=== PATIENT | female | born 1985 | race Caucasian/White ===

== ENCOUNTER 2016-06-15 16:47 | Emergency (ER) | payer MEDICAID, OTHER ==
[~2016-06-15 16:47] MED LIST: /DIVA50TA PO; ACET50TA PO; AFRI0.056; CLAR10CA3 PO; FLON0.054; IBUP200C PO; IBUP200T45 PO; MINI2CAP PO; MOBI7.5T10 PO; MOTR200T44 PO; OLOP1OPD OU; PERC5TAB6 PO; PRENTAB26 PO; RISP0.5T3 PO; RISP1SS PO; ROBA750T4 PO; TRAZ100T4 PO; TRIL150T PO; TRIL1TAB PO; TUMS500C PO; VENL37TA FT; XANA1TAB2 PO; ZYRT10CA PO
[2016-06-15] MEDS ORDERED: FLUORESCEIN OPHTH 1 MG STRIP As Ordered ONE (17:44)
[2016-06-15] MEDS ORDERED: IRRIGATION OPHTH SOLN (EYE WASH) 120ML As Ordered ONE (17:44)
[2016-06-15] MEDS ORDERED: TETRACAINE 0.5% OPHTH SOLN 4ML As Ordered ONE (17:44)
--- NOTE | 2016-06-15 18:32 | EDDOCDS ---
Nurse's Notes [facility] Name: Rosie Barajas Age: 30 yrs Sex: Female : 1985 Arrival Date: 06/15/2016 Time: 16:47 Bed I10 / 23 Private MD: [facility] - Adults Diagnosis: Ocular pain, right eye-chemical exposure with cooking grease, no uptake on exam, inconsisent left IOP unspecified Presentation: 06/15 16:52 Presenting complaint: Patient states: Hot grease splashed in right eye last night at [employer]1 work, states pain persist today sent here from work. Mechanism of Injury: grease from fryer splashed into right eye. The patient denies any loss of vision. Adult Sepsis Screening: The patient does not have new or worsening altered mentation. Patient's respiratory rate is less than 22. Systolic blood pressure is greater than 100. Patient has a qSOFA score of 0- Negative Sepsis Screen. Suicide/Homicide risk assessment- the patient denies having any suicidal and/or homicidal ideations and does not present with any other emotional, behavioral or mental health complaints. 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 Transition of care: patient was not received from another setting of care. 16:52 Acuity: MAICO Level 4 mlb1 16:52 Method Of Arrival: Walkin/Carried/Asstd mlb1 Triage Assessment: 16:54 General: Appears in no apparent distress, Behavior is appropriate for age, cooperative. mlb1 Pain: Location: right eye Pain currently is 6 out of 10 on a pain scale. HIV screening NA for this visit Offered previously. 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 none - PMHx: Bipolar disorder; Seasonal Allergies; - PSHx: Adenoidectomy; Appendectomy; Tonsillectomy; Tubal ligation; - Social history: Smoking status: Patient uses tobacco products, light tobacco smoker. No barriers to communication noted, The patient speaks fluent Palauan, Speaks appropriately for age. - Family history: Not pertinent. - : The pt / caregiver states he / she is not on anticoagulants. Home medication list is obtained from the patient. - Exposure Risk Screening:: None identified. Screenin:52 Screening information is obtained from the patient. Fall risk: No risks identified. dls Assistance ADL's: requires no assistance with activities of daily living. Abuse/DV Screen: The patient / caregiver reports he/she is: not in a situation that causes fear, pain or injury. Nutritional screening: No deficits noted. Advance Directives: Currently, there is no health care proxy. There is no active DNR order. There is no living will. There is no Power of Applied Researcher. Advance directive information has not previously been placed in an [facility] medical record. home support is adequate. Assessment: 17:51 General: Appears in no apparent distress, Behavior is cooperative. EENT: Reports dls Usually wears glasses for reading and distance but lost them in a move one week ago. Pt also states hx of glaucoma.. 18:22 EENT: Eyes Sclera/Cornea are clear in right eye. dls Vital Signs: 16:49 BP 133 / 72; Pulse 86; Resp 18; Temp 99.2; Pulse Ox 100% ; Weight 56.7 kg; Height 5 ft. elp 0 in. (152.40 cm); 18:30 BP 128 / 70; Pulse 82; Resp 18; Temp 97.4(O); Pain 0/10; dls 16:49 Body Mass Index 24.41 (56.70 kg, 152.40 cm) elp Vitals: 16:49 Log In Time: June 15, 2016 at 16:46. elp Visual Acuity: 17:50 Left Eye Visual acuity 20/60, ; Right Eye Visual acuity 20/100, ; Both Eyes Visual dls acuity 20/60; Without Lenses; ED Course: 16:48 Patient visited by Roxann Chatterjee PCA. elp 16:48 [facility] is Private Physician. elp 16:48 Patient moved to Waiting elp 16:49 Patient visited by Roxann Chatterjee PCA. elp 16:49 Patient moved to Pre RCE elp 16:53 Triage Initiated mlb1 16:55 Patient visited by Montez Nicholas RN. mlb1 17:28 Patient moved to Triage 1 jp4 17:34 Patient visited by Nay Gomez RN. ck1 17:36 [facility] Meraz [facility] is [facility]. ar2 17:36 Yunior Waite MD is Attending Physician. ar2 17:36 Patient visited by Loco Meraz PA-C. ar2 17:38 Patient moved to I1 ck1 17:52 The patient / caregiver is instructed regarding the plan of care and ED course. Patient dls has correct armband on for positive identification. Bed in low position. Call light in reach. 18:08 [facility] Payment Agreement was scanned into [employer] and attached to record. zo 18:11 PHCP role handed off by Loco Meraz PA-C ck7 18:11 Yasmani Gutierrez RPA-C is PHCP. ck7 18:11 Patient visited by Yasmani Gutierrez RPA-C. ck7 18:14 PHCP role handed off by Yasmani Gutierrez RPA-C ck7 18:14 Loco Meraz PA-C is PHCP. ck7 18:17 Dilan Mckinney is Referral Physician. ar2 18:22 No IV's were initiated during this patient's visit. No procedures done that require dls assistance. Administered Medications: 17:49 Drug: Fluorescein 1 strips [fluorescein 1 mg eye strips (1 strips)] Route: Ophthalmic; dls Site: right eye; 17:49 Drug: Tetracaine (PF) 2 drps [tetracaine HCl (PF) 0.5 % eye drops (2 drps)] Route: dls Ophthalmic; Site: right eye; 17:50 Drug: Eye Wash Drops 1 applic Route: Ophthalmic; Site: right eye; dls Order Results: There are currently no results for this order. Outcome: 18:21 Discharge Assessment: Patient awake, alert and oriented x 3. No cognitive and/or dls functional deficits noted. Patient verbalized understanding of disposition instructions. patient administered narcotics - no. The following High Risk Discharge criteria are identified: None. Discharged to home ambulatory. Condition: stable. Discharge instructions given to patient, Instructed on discharge instructions, follow up and referral plans. Demonstrated understanding of instructions, Pt was receptive of discharge instructions/ teaching. No special radiology studies were completed. Property sent home with patient. 18:22 Discharge ordered by Provider. ar2 18:30 Patient left the ED. dls Signatures: Sharyn Gibson RN RN dls Montez Nicholas RN RN mlb1 Nay Gomez RN RN ck1 Chad, ZoeaLoco Stock, LINO PA-C ar2 Yasmani Gutierrez, RPA-C RPA-Cck7 Roxann Chatterjee, TAD PATTERN SHOP SUPERVISOR elp Tyler Asif jp4 MTDD
--- NOTE | 2016-06-15 18:32 | EDDOCDS ---
Physician Documentation [facility] Name: Rosie Barajas Age: 30 yrs Sex: Female : 1985 Arrival Date: 06/15/2016 Time: 16:47 Bed I10 23 Private MD: [facility] [place] - Adults Disposition: 06/15/16 18:22 Discharged to Home/Self Care. Impression: Ocular pain, right eye - chemical exposure with cooking grease, no uptake on exam, inconsisent left IOP unspecified. - Condition is Stable. - Discharge Instructions: Conjunctivitis, Chemical, Glaucoma. - Prescriptions for Erythromycin 5 mg/gram (0.5 %) Ophthalmic Ointment - apply 1 ribbon by OPHTHALMIC route every 8 hours for 5 days; 1 tube. - Medication Reconciliation, Work Release Form - 1 day, Local Pharmacy Hours form. - Follow up: Dilan Mckinney; When: Call to arrange an appointment; Reason: Recheck today's complaints. Follow up: Emergency Department; When: As needed; Reason: severe eye pain, vision loss. - Problem is new. - Symptoms are unchanged. - Notes: call Dr. Mckinney's office Friday for a follow up appointment. return to ER if worsening condition Historical: - Allergies: Latex; - Home Meds: 1. none - PMHx: Bipolar disorder; Seasonal Allergies; - PSHx: Adenoidectomy; Appendectomy; Tonsillectomy; Tubal ligation; - Social history: Smoking status: Patient uses tobacco products, light tobacco smoker. No barriers to communication noted, The patient speaks fluent Salvadorean, Speaks appropriately for age. - Family history: Not pertinent. - : The pt / caregiver states he / she is not on anticoagulants. Home medication list is obtained from the patient. - Exposure Risk Screening:: None identified. CAN CARRIER: 06/15 16:55 LMP 05/31/2016 mlb1 Vital Signs: 16:49 BP 133 / 72; Pulse 86; Resp 18; Temp 99.2; Pulse Ox 100% ; Weight 56.7 kg / 125 lbs; elp Height 5 ft. 0 in. (152.40 cm); 18:30 BP 128 / 70; Pulse 82; Resp 18; Temp 97.4(O); Pain 0/10; dls 16:49 Body Mass Index 24.41 (56.70 kg, 152.40 cm) elp Visual Acuity: 17:50 Left Eye Visual acuity 20/60, ; Right Eye Visual acuity 20/100, ; Both Eyes Visual dls acuity 20/60; Without Lenses; MDM: 17:37 Visual Acuity ordered. ar2 17:37 Eye Wash Drops 1 applic Ophthalmic bolus ordered. ar2 17:37 Fluorescein Strip 1 strips Ophthalmic once ordered. ar2 17:37 Tetracaine (PF) Drops 0.5 % 2 drps Ophthalmic once ordered. ar2 18:04 Financial registration complete. zo 18:08 [facility] Payment Agreement was scanned into [employer] and attached to record. zo Administered Medications: 17:49 Drug: Fluorescein 1 strips [fluorescein 1 mg eye strips (1 strips)] Route: Ophthalmic; dls Site: right eye; 17:49 Drug: Tetracaine (PF) 2 drps [tetracaine HCl (PF) 0.5 % eye drops (2 drps)] Route: dls Ophthalmic; Site: right eye; 17:50 Drug: Eye Wash Drops 1 applic Route: Ophthalmic; Site: right eye; dls Signatures: Sharyn Gibson RN RN dls Montez Nicholas RN RN mlb1 Maru Bonilla Aaron, PA-C PAMelania ar2 The chart was reviewed and I authenticate all verbal orders and agree with the evaluation and treatment provided.Attachments: 18:08 [facility] Payment Agreement zo MTDD
--- NOTE | 2016-06-17 19:32 | EDDOCDS ---
Nurse's Notes [facility] Name: Rosie Barajas Age: 30 yrs Sex: Female : 1985 Arrival Date: 06/15/2016 Time: 16:47 Bed I10 / 23 Private MD: [facility] - Adults Diagnosis: Ocular pain, right eye-chemical exposure with cooking grease, no uptake on exam, inconsisent left IOP unspecified Presentation: 06/15 16:52 Presenting complaint: Patient states: Hot grease splashed in right eye last night at [employer] work, states pain persist today sent here from work. Mechanism of Injury: grease from fryer splashed into right eye. The patient denies any loss of vision. Adult Sepsis Screening: The patient does not have new or worsening altered mentation. Patient's respiratory rate is less than 22. Systolic blood pressure is greater than 100. Patient has a qSOFA score of 0- Negative Sepsis Screen. Suicide/Homicide risk assessment- the patient denies having any suicidal and/or homicidal ideations and does not present with any other emotional, behavioral or mental health complaints. Status: Patient is not a line service technician or dependent. Transition of care: patient was not received from another setting of care. 16:52 Acuity: MAICO Level 4 mlb1 16:52 Method Of Arrival: Walkin/Carried/Asstd mlb1 Triage Assessment: 16:54 General: Appears in no apparent distress, Behavior is appropriate for age, cooperative. mlb1 Pain: Location: right eye Pain currently is 6 out of 10 on a pain scale. HIV screening NA for this visit Offered previously. 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 none - PMHx: Bipolar disorder; Seasonal Allergies; - PSHx: Adenoidectomy; Appendectomy; Tonsillectomy; Tubal ligation; - Social history: Smoking status: Patient uses tobacco products, light tobacco smoker. No barriers to communication noted, The patient speaks fluent Norwegian, Speaks appropriately for age. - Family history: Not pertinent. - : The pt / caregiver states he / she is not on anticoagulants. Home medication list is obtained from the patient. - Exposure Risk Screening:: None identified. Screenin:52 Screening information is obtained from the patient. Fall risk: No risks identified. dls Assistance ADL's: requires no assistance with activities of daily living. Abuse/DV Screen: The patient / caregiver reports he/she is: not in a situation that causes fear, pain or injury. Nutritional screening: No deficits noted. Advance Directives: Currently, there is no health care proxy. There is no active DNR order. There is no living will. There is no Power of Head Resident. Advance directive information has not previously been placed in an [facility] medical record. home support is adequate. Assessment: 17:51 General: Appears in no apparent distress, Behavior is cooperative. EENT: Reports dls Usually wears glasses for reading and distance but lost them in a move one week ago. Pt also states hx of glaucoma.. 18:22 EENT: Eyes Sclera/Cornea are clear in right eye. dls Vital Signs: 16:49 BP 133 / 72; Pulse 86; Resp 18; Temp 99.2; Pulse Ox 100% ; Weight 56.7 kg; Height 5 ft. elp 0 in. (152.40 cm); 18:30 BP 128 / 70; Pulse 82; Resp 18; Temp 97.4(O); Pain 0/10; dls 16:49 Body Mass Index 24.41 (56.70 kg, 152.40 cm) elp Vitals: 16:49 Log In Time: June 15, 2016 at 16:46. elp Visual Acuity: 17:50 Left Eye Visual acuity 20/60, ; Right Eye Visual acuity 20/100, ; Both Eyes Visual dls acuity 20/60; Without Lenses; ED Course: 16:48 Patient visited by Roxann Chatterjee PCA. elp 16:48 [facility] is Private Physician. elp 16:48 Patient moved to Waiting elp 16:49 Patient visited by Roxann Chatterjee PCA. elp 16:49 Patient moved to Pre RCE elp 16:53 Triage Initiated mlb1 16:55 Patient visited by Montez Nicholas RN. mlb1 17:28 Patient moved to Triage 1 jp4 17:34 Patient visited by Nay Gomez RN. ck1 17:36 [facility] ar2 17:36 Yunior Waite MD is Attending Physician. ar2 17:36 Patient visited by Loco Meraz PA-C. ar2 17:38 Patient moved to I10 23 ck1 17:52 The patient / caregiver is instructed regarding the plan of care and ED course. Patient dls has correct armband on for positive identification. Bed in low position. Call light in reach. 18:08 [facility] Payment Agreement was scanned into [employer] and attached to record. zo 18:11 PHCP role handed off by Loco Meraz PA-C ck7 18:11 Yasmani Gutierrez RPA-C is PHCP. ck7 18:11 Patient visited by Yasmani Gutierrez RPA-C. ck7 18:14 PHCP role handed off by Yasmani Gutierrez RPA-C ck7 18:14 Loco Meraz PA-C is PHCP. ck7 18:17 Dilan Mckinney is Referral Physician. ar2 18:22 No IV's were initiated during this patient's visit. No procedures done that require dls assistance. 22:00 T-Sheet-- Draft Copy was scanned into [employer] and attached to record. klr Administered Medications: 17:49 Drug: Fluorescein 1 strips [fluorescein 1 mg eye strips (1 strips)] Route: Ophthalmic; dls Site: right eye; 17:49 Drug: Tetracaine (PF) 2 drps [tetracaine HCl (PF) 0.5 % eye drops (2 drps)] Route: dls Ophthalmic; Site: right eye; 17:50 Drug: Eye Wash Drops 1 applic Route: Ophthalmic; Site: right eye; dls Order Results: There are currently no results for this order. Outcome: 18:21 Discharge Assessment: Patient awake, alert and oriented x 3. No cognitive and/or dls functional deficits noted. Patient verbalized understanding of disposition instructions. patient administered narcotics - no. The following High Risk Discharge criteria are identified: None. Discharged to home ambulatory. Condition: stable. Discharge instructions given to patient, Instructed on discharge instructions, follow up and referral plans. Demonstrated understanding of instructions, Pt was receptive of discharge instructions/ teaching. No special radiology studies were completed. Property sent home with patient. 18:22 Discharge ordered by Provider. ar2 18:30 Patient left the ED. dls Signatures: Sharyn Gibson RN RN dls Montez Nicholas RN RN mlb1 Nay Gomez,RN RN ck1 Maru Bonilla Aaron, PA-C PA-C ar2 Yasmani Gutierrez, RPA-C RPA-Cck7 Roxann Chatterjee, TAD RADIAL DRILL PRESS OPERATOR marcellp Yefri, Tyler jp4 Verito Quinones Chart Complete MTDD
--- NOTE | 2016-06-17 19:32 | EDDOCDS ---
Physician Documentation [facility] Name: Rosie Barajas Age: 30 yrs Sex: Female : 1985 Arrival Date: 06/15/2016 Time: 16:47 Bed I10 23 Private MD: [facility] [place] - Adults Disposition: 06/15/16 18:22 Discharged to Home/Self Care. Impression: Ocular pain, right eye - chemical exposure with cooking grease, no uptake on exam, inconsisent left IOP unspecified. - Condition is Stable. - Discharge Instructions: Conjunctivitis, Chemical, Glaucoma. - Prescriptions for Erythromycin 5 mg/gram (0.5 %) Ophthalmic Ointment - apply 1 ribbon by OPHTHALMIC route every 8 hours for 5 days; 1 tube. - Medication Reconciliation, Work Release Form - 1 day, Local Pharmacy Hours form. - Follow up: Dilan Mckinney; When: Call to arrange an appointment; Reason: Recheck today's complaints. Follow up: Emergency Department; When: As needed; Reason: severe eye pain, vision loss. - Problem is new. - Symptoms are unchanged. - Notes: call Dr. Mckinney's office Friday for a follow up appointment. return to ER if worsening condition Historical: - Allergies: Latex; - Home Meds: 1. none - PMHx: Bipolar disorder; Seasonal Allergies; - PSHx: Adenoidectomy; Appendectomy; Tonsillectomy; Tubal ligation; - Social history: Smoking status: Patient uses tobacco products, light tobacco smoker. No barriers to communication noted, The patient speaks fluent Luxembourger, Speaks appropriately for age. - Family history: Not pertinent. - : The pt / caregiver states he / she is not on anticoagulants. Home medication list is obtained from the patient. - Exposure Risk Screening:: None identified. RESIDENT BUYER: 06/15 16:55 LMP 05/31/2016 mlb1 Vital Signs: 16:49 BP 133 / 72; Pulse 86; Resp 18; Temp 99.2; Pulse Ox 100% ; Weight 56.7 kg / 125 lbs; elp Height 5 ft. 0 in. (152.40 cm); 18:30 BP 128 / 70; Pulse 82; Resp 18; Temp 97.4(O); Pain 0/10; dls 16:49 Body Mass Index 24.41 (56.70 kg, 152.40 cm) elp Visual Acuity: 17:50 Left Eye Visual acuity 20/60, ; Right Eye Visual acuity 20/100, ; Both Eyes Visual dls acuity 20/60; Without Lenses; MDM: 17:37 Visual Acuity ordered. ar2 17:37 Eye Wash Drops 1 applic Ophthalmic bolus ordered. ar2 17:37 Fluorescein Strip 1 strips Ophthalmic once ordered. ar2 17:37 Tetracaine (PF) Drops 0.5 % 2 drps Ophthalmic once ordered. ar2 18:04 Financial registration complete. zo 18:08 [facility] Payment Agreement was scanned into [employer] and attached to record. zo 22:00 T-Sheet-- Draft Copy was scanned into [employer] and attached to record. klr Administered Medications: 17:49 Drug: Fluorescein 1 strips [fluorescein 1 mg eye strips (1 strips)] Route: Ophthalmic; dls Site: right eye; 17:49 Drug: Tetracaine (PF) 2 drps [tetracaine HCl (PF) 0.5 % eye drops (2 drps)] Route: dls Ophthalmic; Site: right eye; 17:50 Drug: Eye Wash Drops 1 applic Route: Ophthalmic; Site: right eye; dls Signatures: Sharyn Gibson RN RN dls Montez Nicholas RN RN mlb1 Maru Bonilla Aaron, PA-C PA-C ar2 Verito Quinones The chart was reviewed and I authenticate all verbal orders and agree with the evaluation and treatment provided.Attachments: 18:08 [facility] Payment Agreement zo 22:00 T-Sheet-- Draft Copy klr Chart Complete MTDD
--- NOTE | 2016-06-17 19:32 | EDDOCDS ---
Physician Documentation [facility] Name: Rosie Barajas Age: 30 yrs Sex: Female : 1985 Arrival Date: 06/15/2016 Time: 16:47 Bed I10 23 Private MD: [facility] [place] - Adults Disposition: 06/15/16 18:22 Discharged to Home/Self Care. Impression: Ocular pain, right eye - chemical exposure with cooking grease, no uptake on exam, inconsisent left IOP unspecified. - Condition is Stable. - Discharge Instructions: Conjunctivitis, Chemical, Glaucoma. - Prescriptions for Erythromycin 5 mg/gram (0.5 %) Ophthalmic Ointment - apply 1 ribbon by OPHTHALMIC route every 8 hours for 5 days; 1 tube. - Medication Reconciliation, Work Release Form - 1 day, Local Pharmacy Hours form. - Follow up: Dilan Mckinney; When: Call to arrange an appointment; Reason: Recheck today's complaints. Follow up: Emergency Department; When: As needed; Reason: severe eye pain, vision loss. - Problem is new. - Symptoms are unchanged. - Notes: call Dr. Mckinney's office Friday for a follow up appointment. return to ER if worsening condition Historical: - Allergies: Latex; - Home Meds: 1. none - PMHx: Bipolar disorder; Seasonal Allergies; - PSHx: Adenoidectomy; Appendectomy; Tonsillectomy; Tubal ligation; - Social history: Smoking status: Patient uses tobacco products, light tobacco smoker. No barriers to communication noted, The patient speaks fluent Emirati, Speaks appropriately for age. - Family history: Not pertinent. - : The pt / caregiver states he / she is not on anticoagulants. Home medication list is obtained from the patient. - Exposure Risk Screening:: None identified. 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 0 in. (152.40 cm); 18:30 BP 128 / 70; Pulse 82; Resp 18; Temp 97.4(O); Pain 0/10; dls 16:49 Body Mass Index 24.41 (56.70 kg, 152.40 cm) elp Visual Acuity: 17:50 Left Eye Visual acuity 20/60, ; Right Eye Visual acuity 20/100, ; Both Eyes Visual dls acuity 20/60; Without Lenses; MDM: 17:37 Visual Acuity ordered. ar2 17:37 Eye Wash Drops 1 applic Ophthalmic bolus ordered. ar2 17:37 Fluorescein Strip 1 strips Ophthalmic once ordered. ar2 17:37 Tetracaine (PF) Drops 0.5 % 2 drps Ophthalmic once ordered. ar2 18:04 Financial registration complete. zo 18:08 [facility] Payment Agreement was scanned into [employer] and attached to record. zo 22:00 T-Sheet-- Draft Copy was scanned into [employer] and attached to record. klr Administered Medications: 17:49 Drug: Fluorescein 1 strips [fluorescein 1 mg eye strips (1 strips)] Route: Ophthalmic; dls Site: right eye; 17:49 Drug: Tetracaine (PF) 2 drps [tetracaine HCl (PF) 0.5 % eye drops (2 drps)] Route: dls Ophthalmic; Site: right eye; 17:50 Drug: Eye Wash Drops 1 applic Route: Ophthalmic; Site: right eye; dls Signatures: Sharyn Gibson RN RN dls Montez Nicholas RN RN mlb1 Maru Bonilla Aaron, PA-C PA-C ar2 Verito Quinones The chart was reviewed and I authenticate all verbal orders and agree with the evaluation and treatment provided.Attachments: 18:08 [facility] Payment Agreement zo 22:00 T-Sheet-- Draft Copy klr Chart Complete MTDD
== END 2016-06-15 18:30 | disposition home or self-care (01) ==
LOC: M ED 16:47
DX: Z77.098 Contact with and (suspected) exposure to other hazardous, chiefly nonmedicinal, chemicals (principal); H57.11 Ocular pain, right eye; X10.2XXA Contact with fats and cooking oils, initial encounter; Y92.89 Other specified places as the place of occurrence of the external cause; Y93.89 Activity, other specified; Y99.0 Civilian activity done for income or pay; F31.9 Bipolar disorder, unspecified; J30.2 Other seasonal allergic rhinitis; Z91.040 Latex allergy status; F17.210 Nicotine dependence, cigarettes, uncomplicated

== ENCOUNTER 2016-07-09 11:08 | Emergency (ER) | payer OTHER ==
[~2016-07-09] VITALS: Ht 152.4 cm; Wt 59.0 kg
[2016-07-09] MEDS ORDERED: NORCO, ANEXSIA 5/325MG TABLET (HYDROcodone/ACETAMINOPHEN) PO ONE (12:30)
[2016-07-09] MEDS ORDERED: ONDANSETRON 4 MG ORAL DISINTEGRATING TAB (S0181) PO ONE (12:30)
[2016-07-09 12:35] LABS: CONTROL LINE UCG INT CTR LINE PRESENT
[2016-07-09 12:54] LABS: CALCIUM OXALATE CRYSTALS MODERATE
--- NOTE | 2016-07-09 13:19 | REP ---
PELVIC ULTRASOUND: Real-time sonographic evaluation of the pelvis performed utilizing transabdominal and endovaginal technique. The bladder measures 2.1 x 0.8 x 2.8 cm. The uterus measures 7.7 x 3.5 x 4.7 cm. Endometrial stripe measures 10 mm. There is no endometrial fluid collection. Right ovary measures 3.4 x 3.6 x 2.4 cm and left ovary 3.7 x 1.7 x 2.2 cm. There is a complex cystic structure in the right ovary 2.6 x 1.4 x 2.0 cm. There is moderate free fluid. There is no other evidence of mass. There is blood flow seen in each ovary with duplex Doppler evaluation, with no torsion, resistive index of the right ovary 0.37 and left ovary 0.54. Tiny amount of fluid is seen in the endometrial cavity. IMPRESSION: Small complex cystic structure right ovary 2.6 x 1.4 x 2.0 cm. Moderate free fluid. No torsion. Signed by Nixon Burris MD 07/09/2016 08:11 P
[2016-07-09] MEDS ORDERED: HYDR-3713 PO (13:36)
[2016-07-09 13:55] VITALS: BP 106/58
--- NOTE | 2016-07-10 09:48 | ED PDOC ---
Provider Note pt sent certified letter re formal read of pelvic us - complex ovarian cyst - needs fu Yunior Campa MD Jul 10, 2016 09:48
== END 2016-07-09 14:12 | disposition home or self-care (01) ==
LOC: M ED 12:34
DX: N83.201 Unspecified ovarian cyst, right side (principal)

== ENCOUNTER → 2016-07-30 | Outpatient (REF) | payer OTHER ==
[~2016-07-30] MED LIST changes: +HYDR-3713 PO
== END ==
LOC: M LAB REF 13:08
PROVIDERS: ATTEND Specialist
DX: Z11.51 Encounter for screening for human papillomavirus (HPV) (principal); R87.613 High grade squamous intraepithelial lesion on cytologic smear of cervix (HGSIL)

== ENCOUNTER 2016-09-06 17:33 | Emergency (ER) | payer OTHER ==
[~2016-09-06] VITALS: Ht 152.4 cm; Wt 54.6 kg
[2016-09-06 17:34] VITALS: BP 114/55
[2016-09-06] MEDS ORDERED: CYCL10TA PO (17:49)
[2016-09-06] MEDS ORDERED: NAPR500T PO (17:49)
[2016-09-06] MEDS ORDERED: CYCLOBENZAPRINE 10 MG TAB PO ONE (18:00)
[2016-09-06] MEDS ORDERED: NAPROXEN 250 MG TAB PO ONE (18:00)
== END 2016-09-06 18:08 | disposition home or self-care (01) ==
LOC: M ED 18:03
DX: M54.12 Radiculopathy, cervical region (principal); F17.200 Nicotine dependence, unspecified, uncomplicated; Z91.030 Bee allergy status; Z91.040 Latex allergy status

== ENCOUNTER → 2016-10-01 | Outpatient (REF) | payer OTHER ==
[~2016-10-01] MED LIST changes: +CYCL10TA PO; +NAPR500T PO
== END ==
LOC: M LAB REF 17:03
PROVIDERS: ATTEND Specialist
DX: D06.9 Carcinoma in situ of cervix, unspecified (principal)

== ENCOUNTER 2016-11-22 06:19 | Day surgery (SDC) | payer OTHER ==
[~2016-11-22] VITALS: Ht 152.4 cm; Wt 54.4 kg
[2016-11-22] VITALS (7 sets, daily range): BP systolic 100–128; BP diastolic 46–67
[2016-11-22] MEDS: **UNRESOLVED NON-FORMULARY MED ORDER XX SCH (00:01)
[~2016-11-22 06:19] MED LIST changes: -IBUP200C PO; +IBUP200C10 PO; +MOBI4TAB PO; -MOBI7.5T10 PO; +PERC5TAB12 PO; -PERC5TAB6 PO; +TRAZ-136 PO; -TRAZ100T4 PO
[2016-11-22] MEDS ORDERED: LR 1,000 ML IV SCH ×3 (06:30→10:00)
[2016-11-22 06:32] LABS: MEAN CORPUSCULAR HEMOGLOBIN 29.8 pg (27.0-33.0); MEAN CORPUSCULAR HGB CONC 34.1 g/dl (32.0-36.5); MEAN CORPUSCULAR VOLUME 87.3 fl (80.0-96.0); RED CELL DISTRIBUTION WIDTH 13.2 % (11.5-14.5); WHITE BLOOD COUNT 12.9 K/mm3 (4.0-10.0)
[2016-11-22] MEDS ORDERED: ceFAZolin SOD 1 GM in D5W MINI-BAG PLUS 50 ML IV ONE (06:45)
[2016-11-22 07:01] LABS: CONTROL LINE UCG INT CTR LINE PRESENT
[2016-11-22] MEDS ORDERED: METHYLENE BLUE 0.5% (5MG/ML) 10 ML AMP (PROVAYBLUE)(Q9968 PER 1MG) As Ordered ONE (07:07)
[2016-11-22] MEDS ORDERED: BUPIVACAINE HCL 0.25% 30 ML VIAL As Ordered ONE (07:07)
[2016-11-22] MEDS ORDERED: dexameTHASONE 4 MG/ML 1ML VIAL (J1100) As Ordered ONE (07:15)
[2016-11-22] MEDS ORDERED: ROCURONIUM BROMIDE 50 MG/5 ML VIAL/SYRINGE As Ordered ONE (07:15)
[2016-11-22] MEDS ORDERED: fentaNYL 250 MCG/5 ML INJECTION (J3010) As Ordered ONE (07:18)
[2016-11-22] MEDS ORDERED: MIDAZOLAM INJ 2 MG/2 ML VIAL (J2250) As Ordered ONE (07:19)
[2016-11-22] MEDS ORDERED: PHENYLephrine HCL 500 MCG/5 ML (100MCG/ML) SYRINGE (J2370) As Ordered ONE (07:59)
[2016-11-22] MEDS ORDERED: GLYCOPYRROLATE INJ 0.2 MG/ML 2 ML VIAL As Ordered ONE (08:03)
[2016-11-22] MEDS ORDERED: ePHEDrine SULFATE 25 MG/5 ML(5MG/ML) SYRINGE As Ordered ONE (08:11)
[2016-11-22] MEDS ORDERED: HYDROmorphone HCL 2 MG/ML 1ML VIAL (J1170) As Ordered ONE (08:39)
[2016-11-22] MEDS ORDERED: NEOSTIGMINE 1MG/ML 5 ML SYRINGE (J2710) As Ordered ONE (08:39)
[2016-11-22] MEDS ORDERED: KETOROLAC 60 MG/2 ML VIAL (J1885) As Ordered ONE (08:39)
[2016-11-22] MEDS ORDERED: SUGAMMADEX SODIUM 500 MG/5 ML VIAL (BRIDION) As Ordered ONE (09:14)
[2016-11-22] MEDS ORDERED: fentaNYL 100 MCG/2 ML INJECTION (J3010) IV PRN (10:00)
[2016-11-22] MEDS: LR 1,000 ML IV SCH ×2 (10:00→18:30)
[2016-11-22] MEDS ORDERED: ONDANSETRON 4MG/2ML VIAL (J2405) IV PRN (10:00)
[2016-11-22] MEDS ORDERED: PERCOCET 5MG/325MG TAB PO PRN ×3 (10:00)
[2016-11-22] MEDS: HYDROmorphone HCL 1 MG/ML SYRINGE (J1170) IV PRN ×2 (10:15→10:25)
[2016-11-22] MEDS ORDERED: OXYC1TAB23 PO (12:46)
[2016-11-22] MEDS: ONDANSETRON 4MG/2ML VIAL (J2405) IV PRN (19:46)
[2016-11-22] MEDS: DOCUSATE SODIUM 100 MG CAP PO SCH (20:08)
[2016-11-22] MEDS: KETOROLAC 30 MG/ML VIAL (J1885) IV PRN (20:08)
[2016-11-23] MEDS: **UNRESOLVED NON-FORMULARY MED ORDER XX SCH (00:01)
[2016-11-23] MEDS: MORPHINE 4 MG/ML 1ML SYRINGE IV PRN ×2 (00:23→10:50)
[2016-11-23] MEDS: LR 1,000 ML IV SCH (01:29)
[2016-11-23 01:47] VITALS: BP 113/60
[2016-11-23 06:00] VITALS: BP 122/65
[2016-11-23] MEDS: ONDANSETRON 4MG/2ML VIAL (J2405) IV PRN (08:53)
[2016-11-23] MEDS: DOCUSATE SODIUM 100 MG CAP PO SCH (08:53)
[2016-11-23] MEDS: KETOROLAC 30 MG/ML VIAL (J1885) IV PRN (09:00)
--- NOTE | 2016-11-24 07:17 | RO ---
DATE OF PROCEDURE: 11/22/2016 PREOPERATIVE DIAGNOSIS: Menorrhagia. POSTOPERATIVE DIAGNOSIS: Menorrhagia. PROCEDURE: Robotic-assisted laparoscopy hysterectomy. Bilateral salpingo-oophorectomy. Cystoscopy. SURGEON: Dr. Hunter De La Cruz PCI SECURITY CONSULTANT: Slime Kothari NP ANESTHESIA: General endotracheal. ESTIMATED BLOOD LOSS: 100 mL. FINDINGS: Normal uterus, fallopian tubes and ovaries. Evidence of prior tubal sterilization. Normal upper abdomen. OPERATIVE SUMMARY: The patient taken to the operating room where general endotracheal anesthesia was induced. She was prepped and draped in sterile fashion in the dorsal lithotomy position. A Dailey catheter was placed. The VCare uterine manipulator was placed. A periumbilical incision was made with a scalpel. Veress needle was placed through this incision while tenting up on the skin of the abdomen. An intra-abdominal location of the Veress needle was assessed with the use of a saline filled syringe. A pneumoperitoneum was created. The Veress needle was removed. An 11 mm trocar was placed through this incision while tenting up on the skin of the abdomen. Three 8 mm suprapubic ports were placed under direct visualization. The patient was placed in Trendelenburg position and da Bi surgical robot was docked to the ports. Using the bipolar PK device and monopolar Endoshears, the infundibulopelvic (IP) ligaments were coagulated and incised. The broad ligament attachments to the ovary and tube were coagulated and incised. The round ligaments were coagulated and incised. The anterior and posterior leaves of the broad ligaments were . A bladder flap was created. The uterine vessels were coagulated, and incised. The upper vagina was circumscribed above the VCare cup using monopolar Endoshears. The specimen containing uterus, cervix, fallopian tubes and ovaries was removed through the vagina. The vaginal cuff was closed with V-Loc suture in running fashion. The pelvis was irrigated. All instruments were removed. A cystoscopy was performed using a 70 degrees cystoscope. Bilateral ureteral jets were identified. There was no evidence of injury to the bladder. The patient was given methylene blue dye intravenously prior to the cystoscopy. Slime Kothari NP, assisted in all aspects of the procedure from beginning to end. She assisted with port placement. She manipulated the uterus throughout the procedure and removed the uterus through the vagina. She assisted with closure of the ports. The skin was closed with #4-0 Monocryl subcuticular sutures. The fascia at the umbilical port was closed with #0 Vicryl. Sponge, instrument and needle counts were correct. The patient was extubated and went to the recovery room.
== END 2016-11-23 11:30 | disposition home or self-care (01) ==
LOC: M SDC 06:19 → M MSPAV 11:24 → M SDC 11-23 11:30
PROVIDERS: ATTEND Specialist
DX: N92.0 Excessive and frequent menstruation with regular cycle (principal); N72 Inflammatory disease of cervix uteri; F31.9 Bipolar disorder, unspecified; F17.210 Nicotine dependence, cigarettes, uncomplicated; F41.9 Anxiety disorder, unspecified; Z91.030 Bee allergy status; G25.81 Restless legs syndrome

== ENCOUNTER → 2016-12-17 | Outpatient (REF) | payer OTHER ==
[~2016-12-17] MED LIST changes: +OXYC1TAB23 PO
== END ==
LOC: M LAB REF 21:13
PROVIDERS: ATTEND Physician Assistant
DX: J02.9 Acute pharyngitis, unspecified (principal)

== ENCOUNTER 2017-05-30 18:07 | Emergency (ER) | payer OTHER ==
[2017-05-30] MEDS: NORCO, ANEXSIA 5/325MG TABLET (HYDROcodone/ACETAMINOPHEN) PO (20:07)
== END 2017-05-30 21:11 | disposition home or self-care (01) ==
LOC: M ED 18:07
DX: S90.32XA Contusion of left foot, initial encounter (principal); W01.0XXA Fall on same level from slipping, tripping and stumbling without subsequent striking against object, initial encounter; Y92.89 Other specified places as the place of occurrence of the external cause; M54.9 Dorsalgia, unspecified; G89.29 Other chronic pain; F31.9 Bipolar disorder, unspecified; F17.210 Nicotine dependence, cigarettes, uncomplicated; Z91.030 Bee allergy status; Z91.040 Latex allergy status
CPT/HCPCS: 73630

== ENCOUNTER 2017-07-13 14:31 | Emergency (ER) | payer OTHER ==
[2017-07-13] MEDS: KETOROLAC 60 MG/2 ML VIAL (J1885) IM (17:45)
== END 2017-07-13 18:41 | disposition home or self-care (01) ==
LOC: M ED 14:31
DX: S30.0XXA Contusion of lower back and pelvis, initial encounter (principal); M53.3 Sacrococcygeal disorders, not elsewhere classified; W10.9XXA Fall (on) (from) unspecified stairs and steps, initial encounter; Y92.9 Unspecified place or not applicable; Y93.9 Activity, unspecified; F17.200 Nicotine dependence, unspecified, uncomplicated; Z91.040 Latex allergy status; Z91.030 Bee allergy status
CPT/HCPCS: J1885

== ENCOUNTER 2017-10-23 10:58 | Emergency (ER) | payer OTHER ==
[2017-10-23] MEDS: NORCO, ANEXSIA 5/325MG TABLET (HYDROcodone/ACETAMINOPHEN) PO (12:05)
[2017-10-23] MEDS: BACLOFEN 10 MG TAB PO (12:05)
== END 2017-10-23 12:14 | disposition home or self-care (01) ==
LOC: M ED 10:58
DX: M54.12 Radiculopathy, cervical region (principal); F31.9 Bipolar disorder, unspecified; Z85.43 Personal history of malignant neoplasm of ovary; Z91.030 Bee allergy status; Z91.040 Latex allergy status
CPT/HCPCS: 73030

== ENCOUNTER → 2018-09-04 | Outpatient (CLI) | payer OTHER ==
[~2018-09-04] MED LIST changes: -/DIVA50TA PO; -ACET50TA PO; +BACL10TA2 PO; +DEPA1TAB3 PO; +HYDR-3715 PO; +IBUP-1022 PO; -IBUP200C10 PO; +IBUP200C25 PO; +MAPA500T2 PO; +NAPR-837 PO; +NAPR-885 PO; -NAPR500T PO; -OLOP1OPD OU; +PATA2.5S OU; -TRAZ-136 PO; +TRAZ-163 PO; +TYLE325T5 PO
[2018-09-04 13:38] LABS: BASO % 0.5 % (0.0-1.0); EOS # 0.3 10^3/uL (0.0-0.50); HEMATOCRIT 40.8 % (36.0-47.0); LYMPH # 4.2 10^3/uL (1.5-4.5); MEAN CORPUSCULAR HEMOGLOBIN 28.4 pg (27.0-33.0); MEAN CORPUSCULAR HGB CONC 31.9 g/dl (32.0-36.5); MEAN CORPUSCULAR VOLUME 89.1 fl (80.0-96.0); MONO # 0.4 10^3/uL (0.0-0.8); MONO % 5.6 % (0.0-5.0); NEUTROPHILS # 2.6 10^3/uL (1.8-7.7); NEUTROPHILS % 34.8 % (36.0-66.0); PLATELET COUNT, AUTOMATED 245 10^3/uL (150-450); RED BLOOD COUNT 4.58 10^6/uL (4.00-5.40); WHITE BLOOD COUNT 7.5 10^3/uL (4.0-10.0)
[2018-09-04 13:43] LABS: ALBUMIN 4.4 GM/DL (3.2-5.2); ALT/SGPT 40 U/L (12-78); BILIRUBIN,TOTAL 0.5 MG/DL (0.2-1.0); BLOOD UREA NITROGEN 17 MG/DL (7-18); CALCIUM LEVEL 9.4 MG/DL (8.5-10.1); CARBON DIOXIDE LEVEL 32 MEQ/L (21-32); CHLORIDE LEVEL 107 MEQ/L (98-107); CREATININE FOR GFR 0.81 MG/DL (0.55-1.30); FREE THYROXINE INDEX 2.8 % (1.3-4.8); GLOMERULAR FILTRATION RATE > 60.0 (>60); GLUCOSE, FASTING 74 MG/DL (70-100); POTASSIUM SERUM 4.4 MEQ/L (3.5-5.1); SODIUM LEVEL 140 MEQ/L (136-145); T UPTAKE 33 % (30-39); THYROXINE (T4) 8.4 UG/DL (4.5-12.0); TOTAL PROTEIN 7.3 GM/DL (6.4-8.2)
== END ==
LOC: M SMT 09:14
PROVIDERS: ATTEND Specialist
DX: R63.4 Abnormal weight loss (principal)

== ENCOUNTER 2019-06-09 13:11 | Emergency (ER) | payer OTHER ==
[~2019-06-09] VITALS: Ht 152.4 cm; Wt 50.1 kg
[~2019-06-09 13:11] MED LIST changes: -TRAZ-163 PO; +TRAZ-257 PO
[2019-06-09] MEDS ORDERED: LATANOPROST (13:28)
[2019-06-09] MEDS ORDERED: IBUP-1022 (13:28)
[2019-06-09] MEDS ORDERED: ONDANSETRON 4MG/2ML VIAL (J2405) IV ONE (14:15)
[2019-06-09] MEDS ORDERED: NS 1,000 ML IV ONE (14:15)
[2019-06-09] MEDS ORDERED: ACETAMINOPHEN 325 MG TAB PO ONE (14:15)
[2019-06-09 14:26] LABS: BASO # 0.1 10^3/uL (0.0-0.2); BASO % 0.6 % (0.0-1.0); EOS # 0.1 10^3/uL (0.0-0.5); EOS % 1.3 % (0.0-3.0); HEMATOCRIT 41.3 % (36.0-47.0); HEMOGLOBIN 13.5 g/dl (12.0-15.5); LYMPH # 3.4 10^3/uL (1.5-5.0); LYMPH % 37.7 % (24.0-44.0); MEAN CORPUSCULAR HEMOGLOBIN 28.7 pg (27.0-33.0); MEAN CORPUSCULAR HGB CONC 32.7 g/dl (32.0-36.5); MEAN CORPUSCULAR VOLUME 87.7 fl (80.0-96.0); MONO # 0.3 10^3/uL (0.0-0.8); MONO % 3.8 % (0.0-5.0); NEUTROPHILS % 56.4 % (36.0-66.0); PLATELET COUNT, AUTOMATED 230 10^3/uL (150-450); RED BLOOD COUNT 4.71 10^6/uL (4.00-5.40); WHITE BLOOD COUNT 8.9 10^3/uL (4.0-10.0)
[2019-06-09 15:00] LABS: BLOOD UREA NITROGEN 15 MG/DL (7-18); CALCIUM LEVEL 9.3 MG/DL (8.5-10.1); CARBON DIOXIDE LEVEL 29 MEQ/L (21-32); CHLORIDE LEVEL 108 MEQ/L (98-107); CK-MB VALUE MASS < 1.0 NG/ML (<3.6); CPK CREATINE PHOSPHOKINASE 77 U/L (26-192); CREATININE FOR GFR 0.71 MG/DL (0.55-1.30); GLOMERULAR FILTRATION RATE > 60.0 (>60); GLUCOSE, FASTING 86 MG/DL (70-100); MAGNESIUM LEVEL 1.9 MG/DL (1.8-2.4); POTASSIUM SERUM 4.2 MEQ/L (3.5-5.1); SODIUM LEVEL 141 MEQ/L (136-145); THYROID STIMULATING HORMONE 0.492 uIU/ML (0.358-3.740); TROPONIN I < 0.02 NG/ML (< 0.10)
--- NOTE | 2019-06-09 15:07 | ECGEPIP ---
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
--- NOTE | 2019-06-09 15:16 | REP ---
Head CT without contrast: History: Syncope. Comparison study: Comparison head CT study August 06, 2013. CT findings: Bone window settings demonstrate an intact bony calvarium. There is no evidence of skull fracture or incidental bony calvarial lesion. The visualized paranasal sinuses appear clear. No intraorbital abnormality is seen. On soft tissue window setting images; the lateral, third, and fourth ventricles are normal in size and position. Burris-white differentiation pattern is normal above and below the tentorium. There are is no evidence of intracranial hemorrhage. No mass, edema, infarction, or midline shift is seen. No extra-axial fluid collection is appreciated. Impression: Negative noncontrast head CT. Electronically Signed by Maikol Hernandez MD 06/09/2019 03:14 P
[2019-06-09 16:30] VITALS: BP 114/68
== END 2019-06-09 16:44 | disposition home or self-care (01) ==
LOC: M ED 13:11
DX: R55 Syncope and collapse (principal); Z91.030 Bee allergy status; Z91.040 Latex allergy status; F17.210 Nicotine dependence, cigarettes, uncomplicated
CPT/HCPCS: 36415; 70450; 80048; 82550; 82553; 83735; 84443; 85025; 93005; 93041; 94760; 96361; 96374; 99285; J2405

== ENCOUNTER → 2019-06-23 | Outpatient (CLI) | payer OTHER, MEDICAID ==
[~2019-06-23] MED LIST changes: +IBUP-1022; +LATANOPROST
--- NOTE | 2019-07-13 02:54 | ECWPNPC ---
PATIENT NAME: RODNEY PATTERSON : 1985 GENDER: FEMALE VISIT DATE: 06/23/2019 DISCHARGE DATE: 06/23/19 1300 VISIT LOCKED DATE TIME: PHYSICIAN: JUVENTINO MEDINA PHYSICIAN PAGER NO: INACTIVE RESOURCE: JUVENTINO MEDINA REASON FOR APPOINTMENT 1. NECK/ARM PAIN HISTORY OF PRESENT ILLNESS PAIN SCREENIN-YEAR-OLD FEMALE REFERRED BY [facility] FOR PERSISTENT NECK AND LEFT ARM PAIN. THIS BEGAN IN FEBRUARY 2019 WITHOUT PRECIPITATING EVENT. PAIN IS AGGRAVATED WITH RANGE OF JOINT MOTION OF THE NECK OR LEFT ARM. RATING PAIN LEVEL A 6-9/10 VAS. DESCRIBES PAIN CONTINUOUS, SHARP AND ACHING. REPORTS NIGHTTIME AWAKENINGS DUE TO PAIN. FINISHED PT IN APRIL AND PATIENT STATES THAT AGGRAVATED PAIN. TRIED GABAPENTIN 300 MG 3 TIMES A DAY WITHOUT IMPROVEMENT. HISTORY OF FIBROMYALGIA AND CHRONIC LOW BACK PAIN. PATIENT HAS A COMPLAINT OF ACUTE OR CHRONIC PAIN :YES FALL RISK SCREENING: SCREENING :NO FALLS REPORTED IN THE LAST YEAR CURRENT MEDICATIONS TAKING MOTRIN IB 200 MG TABLET 1-2 TABLETS WITH FOOD OR MILK NEEDED ORALLY THREE TIMES A DAY TAKING FLEXERIL 10 MG TABLET 1 TABLET 1 TO 2 HOURS BEFORE BEDTIME ORALLY ONCE A DAY TAKING SALONPAS - PAD DIRECTED EXTERNALLY NOT-TAKING IBUPROFEN 600 MG TABLET 1 TABLET ORALLY EVERY 6-8 HOURS PRN NOT-TAKING LORATADINE-D 24HR 10-240 MG TABLET EXTENDED RELEASE 24 HOUR 1 TABLET ORALLY ONCE A DAY NOT-TAKING TRILEPTAL 300 MG TABLET ORALLY TWICE DAILY NOT-TAKING RISPERDAL 1 MG TABLET 1 TABLET ORALLY BID NOT-TAKING CYMBALTA 30 MG CAPSULE DELAYED RELEASE PARTICLES 1 CAPSULE ORALLY ONE DAILY NOT-TAKING ALBUTEROL SULFATE HFA 108 (90 BASE) MCG/ACT AEROSOL SOLUTION 2 PUFFS INHALATION ONCE A DAY NOT-TAKING PHYSICAL THERAPY EVALUATE AND TREAT LEFT KNEE PAIN DIRECTED N/A 3 TIMES PER WEEK NOT-TAKING FLEXERIL 5 MG TABLET 1 TABLET ORALLY TWICE DAILY PRN NOT-TAKING KNEE BRACE 1 N/A HINGED KNEE BRACE N/A FOR LEFT KNEE SPRAIN ICD 719.46 NOT-TAKING DEPAKOTE 250 MG (CARTHAGE ) TABLET DELAYED RELEASE 1 TAB(S) ORALLY QHS NOT-TAKING CLONAZEPAM 0.5 MG (CARTHAGE ) TABLET 1 TABLET ORALLY QHS NOT-TAKING TYLENOL WITH CODEINE #3 300-30 MG TABLET 1 TABLET NEEDED MDD # 4 ORALLY EVERY 6 HRS NOT-TAKING NABUMETONE 750 MG TABLET 1 TABLET ORALLY TWICE A DAY MEDICATION LIST REVIEWED AND RECONCILED WITH THE PATIENT PAST MEDICAL HISTORY BIPOLAR DISORDER ANXIETY DISORDER ALCOHOL/CANNABIS ABUSE CHRONIC LOW AND MID BACK PAIN FIBROMYALGIA PTSD DEGENERATIVE DISC DISEASE CHRONIC NECK/SHOULDER/ARM PAIN MENOPAUSE S/P HYSTERECTOMY GLAUCOMA CERVICAL AND OVARIAN CANCER MIGRAINES ALLERGIES LATEX (FOR ALLERGY USE ONLY): RASH - ALLERGY BEES: HIVES/RASH - ALLERGY SURGICAL HISTORY APPENDECTOMY 1998 TONSILLECTOMY/ADENOIDECTOMY 2007 BILATERAL TUBAL LIGATION 09/2015 COMPLETE HYSTERECTOMY 2017 FAMILY HISTORY FATHER: ALIVE MOTHER: ALIVE 1 SISTER(S) - HEALTHY. 1 SON(S) , 1 DAUGHTER(S) - HEALTHY. MOTHER - IBSSISTER - ADHDSON- ADHD, ASTHMA. SOCIAL HISTORY GENERAL: TOBACCO USE ARE YOU A:CURRENT SMOKER ARE YOU INTERESTED IN QUITTING?NOT READY TO QUIT COUNSELED THE PATIENT ON SMOKING EFFECTS, EDUCATION [id number]/2020 HOW OFTEN DO YOU SMOKE CIGARETTES?EVERY DAY PATIENT COUNSELED ON THE DANGERS OF TOBACCO USE AND URGED TO QUIT:06/23/2019 OTHERS AT HOME: CHILDREN. HOUSING: RENTS HOUSE. EDUCATION LEVEL OF EDUCATION:NOT FINISHED COLLEGE DIET: REGULAR DIET, BALANCED. LANGUAGE LANGUAGES SPOKEN:UGANDAN RECREATIONAL DRUG USE DRUG USE?YES MARIJUANA EXERCISE: DAILY. 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 CAFFEINE CAFFEINE USE?YES 1-2 DAILY ADVANCE DIRECTIVE ADVANCE DIRECTIVE DISCUSSED WITH PATIENT:YES 06/23/2019 PATIENT HAS NO ADVANCED DIRECTIVES AND DECLINES INFORMATION ON HCP AT THIS TIME. JS BUDDHIST NO DRUZE BELIEFS THAT WOULD IMPACT HEALTH CARE, NO DRUZE PREFERENCE. MARITAL STATUS: SINGLE. ALCOHOL SCREENING DID YOU HAVE A DRINK CONTAINING ALCOHOL IN THE PAST YEAR?YES HOW OFTEN DID YOU HAVE A DRINK CONTAINING ALCOHOL IN THE PAST YEAR?MONTHLY OR LESS (1 POINT) HOW MANY DRINKS DID YOU HAVE ON A TYPICAL DAY WHEN YOU WERE DRINKING IN THE PAST YEAR?1 OR 2 (0 POINTS) HOW OFTEN DID YOU HAVE SIX OR MORE DRINKS ON ONE OCCASION IN THE PAST YEAR?NEVER (0 POINTS) POINTS1 INTERPRETATIONNEGATIVE OCCUPATION: DISABILITY. TRIED TO REACH PT TO REVEIW HX NOT ABLE TO REACH KE REVIEWED WITH PATIENT 06/23/2019 1202 JS. HOSPITALIZATION/MAJOR DIAGNOSTIC PROCEDURE FOR SURGERIES ABOVE CHILDBIRTH 09/2015 CHILDBIRTH 08/2005 [facility] 08/2014 [facility] 2009 OR 2010 REVIEW OF SYSTEMS REVIEWED BY: PROVIDER: , JUVENTINO KIMBLE . CONSTITUTIONAL: ANY CHANGE IN YOUR MEDICAL CONDITION? YES, DEGENERATIVE DISC DISEASE AND FIBROMYALGIA . CHILLS NO, NO . FEVER NO, NO . INFECTION: DO YOU HAVE NEW INFECTIONS? NO, NO . DO YOU HAVE HISTORY OF MRSA? NO, NO . MUSCULOSKELETAL: ANY NEW PATTERNS OF PAIN OR NUMBNESS? YES, STATES PAIN WORSENING IN THE LAST 6 MONTHS - SOME DAYS CANNOT EVEN GET OUT OF BED. ALSO STATES NUMBNESS SOMETIMES TO THE WHOLE LEFT SIDE . SYTEMIC LUPUS NO, NO . GASTROENTEROLOGY: ANY NEW CHANGE IN BOWEL CONTROL? YES, CONSTIPATION . BARRETTS ESOPHAGUS NO, NO . CIRRHOSIS NO, NO . HEPATITIS NO, NO . LIVER FAILURE NO, NO . ACID REFLUX NO, NO . UNEXPLAINED WEIGHT LOSS NO, NO . GENITOURINARY: ANY NEW CHANGE IN BLADDER CONTROL? NO, NO . IS THERE A CHANCE YOU COULD BE ? NO, NO . HEMATOLOGY/LYMPH: DO YOU TAKE ANY BLOOD THINNERS? (FOR EXAMPLE- COUMADIN, PLAVIX, AGGRENOX, PLATEL, PRADAXA, OR XARELTO) NO, NO . WHEN WAS YOUR LAST DOSE? DATE: TIME: , DATE: TIME: . LOW PLATELET COUNT NO, NO . SICKLE CELL DISEASE NO, NO . VON WILLIEBRANDS NO, NO . FACTOR V LEIDEN NO, NO . THALLASEMIA NO, NO . ANEMIA NO, NO . EASY BRUISING YES . NEUROLOGY: HAVE YOU FALLEN IN THE PAST 12 MONTHS? YES, FAINTED IN SHOWER RECENTLY AND FELL - TESTING PERFORMED AFTER, NO CLEAR CAUSE FOUND . ANY NEW EXTREMITY NUMBNESS OR WEAKNESS? YES, LEFT ARM AND LEG NUMBNESS . HEAD INJURY NO, NO . DEMENTIA NO, NO . CEREBRAL PALSY NO, NO . MULTIPLE SCLEROSIS NO, NO . DIZZINESS INTERMITTENT, SENSATION OF IMBALANCE . HEADACHE ADMITS, ASSOCIATED WITH NAUSEA, ASSOCIATED WITH PHOTOPHOBIA, INFREQUENT . STROKES NO, NO . VERTIGO YES, SENSATION OF IMBALANCE . CARDIOLOGY: DO YOU HAVE A PACEMAKER OR DEFIBRILLATOR? NO, NO . ANGINA NO, NO . HEART ATTACK NO, NO . HEART SURGERY NO, NO . CONGESTIVE HEART FAILURE/FLUID OVERLOAD NO, NO . CHEST PAIN PATIENT ADMITS - DUE TO ARM PAIN . HIGH BLOOD PRESSURE NO, NO . IRREGULAR HEART BEAT OCCASIONALLY - MURMUR, BENIGN . RESPIRATORY: HAVE YOU BEEN SICK IN THE PAST WEEK? NO, NO . FEVER NO, NO . FLU LIKE SYMPTOMS? NO, NO . CPAP NO, NO . BYPAP NO, NO . ASTHMA NO, NO . EMPHYSEMA NO, NO . CHRONIC LUNG DISEASES NO, NO . SHORTNESS OF BREATH ON EXERTION YES . COUGH YES - ALLERGY RELATED, SMOKER'S COUGH . SNORING NO, NO . INTEGUMENTARY: DO YOU HAVE ANY RASHES OR OPEN SORES? NO, NO . ALLERGIC/IMMUNO: ARE YOU ALLERGIC TO IV DYE? NO, NO . ANY NEW ALLERGIES? NO, NO . PSYCHIATRIC: DO YOU HAVE THOUGHTS OF HURTING YOURSELF OR SOMEONE ELSE? NO, NO . ARE YOU ABUSED, NEGLECTED, OR IN AN UNSAFE ENVIRONMENT? NO, NO . ENDOCRINOLOGY: ARE YOU DIABETIC? NO, NO . THYROID DISORDER NO, NO . OTHER: DO YOU NEED ANY PRESCRIPTIONS? YES . IF YES, PLEASE LIST: UNSURE . ANY NEW PROBLEMS WITH YOUR MEDICATIONS? NO, NO . WHEN DID YOU LAST EAT? ____, ____ . WHEN DID YOU LAST DRINK? ____, ____ . WHAT DID YOU LAST DRINK? ____, ____ . NAME OF PERSON DRIVING YOU HOME? ____, ____ . DO YOU HAVE ANY OTHER QUESTIONS OR CONCERNS YES . VITAL SIGNS WT 117.2 LBS, HT 60 IN, BMI 22.89 INDEX, BP 135/76 MM HG, HR 67 /MIN, RR 16 /MIN, TEMP 98.6 F, OXYGEN SAT % 98, SAFE IN ENV? (Y/N) YES, REVIEWED BY: LEIGH ANN. EXAMINATION GENERAL EXAMINATION: LUNGS:LUNG SOUNDS ARE CLEAR. HEART:HEART RATE REGULAR. MUSCULOSKELETAL:TRIGGER POINTS:, ELICITED WITH PALPATION OVER CERVICAL SPINOUS PROCESSES AND ACROSS THE TRAPEZIUS MUSCLES L>R. RESTRICTION OF ROM IS NOTED. , MUSCLE STRENGTH TESTING 5/5 BILATERAL UPPER AND LOWER EXTREMITIES., PALPATION: POSITIVE FOR PAIN OVER L/S SPINE. POSITIVE FOR PAIN OVER L/S PARSPINALS. DIAGNOSTIC:REVIEWED EMG UPPER EXTREMITIES 10-18-2013 CERVICAL XLUL-4-7-2014 CT CERVICAL SPINE 06-08-2013 LUMBAR [id number] THORACIC SLNG-3-9-2014 LUMBAR XRAY ALL ABOVE IMAGING REVIEWED AND WNL-JUVENTINO KIMBLE. ASSESSMENTS MYALGIA OF MUSCLE OF NECK - M79.18 (PRIMARY) TREATMENT MYALGIA OF MUSCLE OF NECK MRI : [id number] NOTES: . LEFT NECK, TRIGGER POINT INJECTION.MRI OF THE CERVICAL SPINE IS ORDERED TODAY DUE TO THE FACT THAT SHE HAS A CT SCAN OF THE NECK THAT DOES NOT ASSIST IN DEFINING DIAGNOSIS. SHE HAS FAILED CONSERVATIVE CARE TO INCLUDE NSAIDS AND PHYSICAL THERAPY. CONTINUES WITH SIGNIFICANT NECK PAIN WITH RADIATION INTO THE LEFT ARM CONSISTENT WITH CERVICAL NERVE IMPINGEMENT. MRI OF THE CERVICAL SPINE IS NEEDED TO MOVE FORWARD WITH DEFINING DIAGNOSIS AND SETTING UP A TREATMENT PLAN. OTHERS NOTES: TRIGGER POINT INJECTION MATERIAL WAS PRINTED. PREVENTIVE MEDICINE PAIN CLINIC TEACHING: PROCEDURE TEACHING PRE TRIGGER POINT INJECTION INSTRUCTIONS REVIEWED WITH PT. VERBALIZED UNDERSTANDING.. PROCEDURE CODES FA211 ESTABILISHED PATIENT [facility] FAC[facility] CHARGE DISPOSITION & COMMUNICATION FOLLOW UP POST (REASON: . LEFT NECK, TRIGGER POINT INJECTION) ELECTRONICALLY SIGNED BY LAMIN STRATTON ON 07/12/2019 AT 09:44 AM EDT DISCLAIMER : THIS IS A VISIT SUMMARY EXTRACTED FROM THE [facility] CHART. IT IS NOT A COPY OF THE [facility] PROGRESS NOTE. ARNOLDO
== END ==
LOC: M PAIN 11:15
PROVIDERS: ATTEND Nurse Practitioner Family
DX: M79.18 Myalgia, other site (principal)

== ENCOUNTER → 2019-07-14 | Outpatient (REF) | payer OTHER, MEDICAID ==
[2019-07-14 13:44] LABS: HEMATOCRIT 40.3 % (36.0-47.0); HEMOGLOBIN 13.1 g/dl (12.0-15.5); MEAN CORPUSCULAR HGB CONC 32.5 g/dl (32.0-36.5); MEAN CORPUSCULAR VOLUME 89.4 fl (80.0-96.0); PLATELET COUNT, AUTOMATED 323 10^3/uL (150-450); RED BLOOD COUNT 4.51 10^6/uL (4.00-5.40)
[2019-07-14 13:50] LABS: WHITE BLOOD COUNT 10.1 10^3/uL (4.0-10.0)
[2019-07-14 13:51] LABS: ALBUMIN 3.9 GM/DL (3.2-5.2); ALT/SGPT 29 U/L (12-78); BILIRUBIN,TOTAL 0.3 MG/DL (0.2-1.0); BLOOD UREA NITROGEN 16 MG/DL (7-18); CALCIUM LEVEL 9.3 MG/DL (8.5-10.1); CARBON DIOXIDE LEVEL 31 MEQ/L (21-32); CHLORIDE LEVEL 106 MEQ/L (98-107); CHOLESTEROL LEVEL 192 MG/DL (<200); CHOLESTEROL RISK RATIO 4.085 (<5); CREATININE FOR GFR 0.77 MG/DL (0.55-1.30); FREE T4 1.17 NG/DL (0.76-1.46); GLOMERULAR FILTRATION RATE > 60.0 (>60); GLUCOSE, FASTING 92 MG/DL (70-100); HDL CHOLESTEROL 47 MG/DL (>40); LDL CHOLESTEROL 116 MG/DL (<100); NON-HDL-C 145 MG/DL; SODIUM LEVEL 141 MEQ/L (136-145); TOTAL PROTEIN 7.3 GM/DL (6.4-8.2); TRIGLYCERIDES LEVEL 147 MG/DL (<150)
[2019-07-14 13:53] LABS: TOTAL 25(OH) VITAMIN D 14.4 NG/ML (30.0-100.0)
[2019-07-14 14:09] LABS: ATYPICAL LYMPH 9 % (0-5); EOSINOPHILS 6 % (0-3); LYMPHOCYTES 54 % (16-44); MONOCYTES 6 % (0-5); NEUTROPHILS 25 % (28-66)
[2019-07-14 14:10] LABS: PLATELET ESTIMATE NORMAL (NORMAL)
== END ==
LOC: M LAB REF 13:07
PROVIDERS: ATTEND Physician Assistant
DX: Z00.01 Encounter for general adult medical examination with abnormal findings (principal); Z13.9 Encounter for screening, unspecified; E55.9 Vitamin D deficiency, unspecified; E03.9 Hypothyroidism, unspecified; E78.5 Hyperlipidemia, unspecified; F19.11 Other psychoactive substance abuse, in remission; Z68.21 Body mass index [BMI] 21.0-21.9, adult; J06.9 Acute upper respiratory infection, unspecified

== ENCOUNTER → 2019-07-23 | Outpatient (CLI) | payer OTHER ==
--- NOTE | 2019-07-23 12:11 | REP ---
MRI CERVICAL SPINE WITHOUT CONTRAST: HISTORY: Neck pain. Comparison cervical spine MRI study February 12, 2019. TECHNIQUE: Sagittal and axial T1 and T2-weighted scans are acquired in the usual fashion with and without fat saturation. Sequences include spin echo, turbo spin-echo, and STIR imaging sequences. MRI FINDINGS: Developmental fusion of the C2-3 disc and C2-3 facets is again noted. There is reversal of the normal cervical lordosis. This is similar to the prior study. Previously noted small right paracentral focal disc protrusion at C5-6 is again seen essentially unchanged. This indents the ventral margin of the thecal sac but does not compress the cord visibly. Foramina are intact. No central canal stenosis is seen. Minimal disc bulging is seen at C4-5 unchanged. C6-7 and C7-T1 levels show no new finding. IMPRESSION: Findings unchanged from comparison study February 12, 2019. Small right central C5-6 focal disc protrusion. No new disc protrusion seen. Developmental fusion again noted C2-3. Electronically Signed by Maikol Hernandez MD 07/23/2019 12:47 P
== END ==
LOC: M PLARAD 10:38
PROVIDERS: ATTEND Nurse Practitioner Family
DX: M50.222 Other cervical disc displacement at C5-C6 level (principal)

== ENCOUNTER → 2019-10-07 | Outpatient (CLI) | payer OTHER, MEDICAID ==
[~2019-10-07] MED LIST changes: +CYCL-707 PO; -CYCL10TA PO
--- NOTE | 2019-10-11 23:40 | ECWPNPC ---
PATIENT NAME: RODNEY PATTERSON : 1985 GENDER: FEMALE VISIT DATE: 10/07/2019 DISCHARGE DATE: 10/07/19 1451 VISIT LOCKED DATE TIME: PHYSICIAN: JUVENTINO MEDINA PHYSICIAN PAGER NO: INACTIVE RESOURCE: JUVENTINO MEDINA REASON FOR APPOINTMENT 1. DISCUSS TPI PAT DONE HISTORY OF PRESENT ILLNESS GENERAL: HERE FOR FOLLOW-UP OF CHRONIC GENERALIZED BACK PAIN. SUFFERS FROM FIBROMYALGIA. NOT CURRENTLY ON ANY MEDICATION FOR FIBROMYALGIA. WAS SCHEDULED FOR TRIGGER POINT INJECTIONS BUT MISSED THAT APPOINTMENT. DISCUSSED MEDICATION AND TREATMENT OPTIONS. -. FALL RISK SCREENING: SCREENING :ONE FALL WITHOUT INJURY IN THE PAST YEAR PAIN SCREENING: PATIENT HAS A COMPLAINT OF ACUTE OR CHRONIC PAIN :YES 10/07/19 LOCATION OF PAIN:NECK, LOW BACK INTENSITY OF PAIN (SCALE OF 1 TO 10):7 WHAT DOES YOUR PAIN FEEL LIKE:ACHING, BURNING, INTERMITTENT, SHARP, STABBING, TENDER, SORE DURATION:PERIODIC PAIN IS INCREASED BY:ACTIVITIES PAIN IS DECREASED BY:OTHERS REST, HEAT NURSING NOTE: -. PAIN CENTER INTAKE QUESTIONS: DO YOU HAVE A HISTORY OF MRSA? :NO DO YOU TAKE A BLOOD THINNERS? :NO DO YOU HAVE ANY BLEEDING DISORDERS? :NO ANY NEW NUMBNESS OR WEAKNESS IN YOUR LEGS OR ARMS? :NO ANY PACEMAKER,DEFIBRILLATOR, OR DORSAL COLUMN STIMULATOR? :NO DO YOU HAVE ANY RASHES OR OPEN SORES? :NO ARE YOU ALLERGIC TO IV DYE? :NO ARE YOU DIABETIC? :NO ANY NEW PROBLEMS WITH YOUR MEDICATIONS? :NO HAVE YOU RECEIVED A VACCINE IN THE PAST 30 DAYS? :NO DO YOU PLAN TO RECEIVE A VACCINE IN THE NEXT 21 DAYS? :NO DO YOU NEED ANY PRESCRIPTION? :NO DO YOU TAKE ANY IMMUNOSUPPRESSIVE MEDICATIONS? :NO CURRENT MEDICATIONS TAKING MOTRIN IB 200 MG TABLET 1-2 TABLETS WITH FOOD OR MILK NEEDED ORALLY THREE TIMES A DAY TAKING FLEXERIL 10 MG TABLET 1 TABLET 1 TO 2 HOURS BEFORE BEDTIME ORALLY ONCE A DAY TAKING SALONPAS - PAD DIRECTED EXTERNALLY NOT-TAKING VALIUM 5 MG TABLET 1 TAB ORALLY 1/2 HR PRE MRI NOT-TAKING IBUPROFEN 600 MG TABLET 1 TABLET ORALLY EVERY 6-8 HOURS PRN NOT-TAKING LORATADINE-D 24HR 10-240 MG TABLET EXTENDED RELEASE 24 HOUR 1 TABLET ORALLY ONCE A DAY NOT-TAKING TRILEPTAL 300 MG TABLET ORALLY TWICE DAILY NOT-TAKING RISPERDAL 1 MG TABLET 1 TABLET ORALLY BID NOT-TAKING CYMBALTA 30 MG CAPSULE DELAYED RELEASE PARTICLES 1 CAPSULE ORALLY ONE DAILY NOT-TAKING ALBUTEROL SULFATE HFA 108 (90 BASE) MCG/ACT AEROSOL SOLUTION 2 PUFFS INHALATION ONCE A DAY NOT-TAKING PHYSICAL THERAPY EVALUATE AND TREAT LEFT KNEE PAIN DIRECTED N/A 3 TIMES PER WEEK NOT-TAKING FLEXERIL 5 MG TABLET 1 TABLET ORALLY TWICE DAILY PRN NOT-TAKING KNEE BRACE 1 N/A HINGED KNEE BRACE N/A FOR LEFT KNEE SPRAIN ICD 719.46 NOT-TAKING DEPAKOTE 250 MG [facility]) TABLET DELAYED RELEASE 1 TAB(S) ORALLY QHS NOT-TAKING CLONAZEPAM 0.5 MG ([facility]) TABLET 1 TABLET ORALLY QHS NOT-TAKING TYLENOL WITH CODEINE #3 300-30 MG TABLET 1 TABLET NEEDED MDD # 4 ORALLY EVERY 6 HRS NOT-TAKING NABUMETONE 750 MG TABLET 1 TABLET ORALLY TWICE A DAY MEDICATION LIST REVIEWED AND RECONCILED WITH THE PATIENT PAST MEDICAL HISTORY BIPOLAR DISORDER ANXIETY DISORDER ALCOHOL/CANNABIS ABUSE CHRONIC LOW AND MID BACK PAIN FIBROMYALGIA PTSD DEGENERATIVE DISC DISEASE CHRONIC NECK/SHOULDER/ARM PAIN MENOPAUSE S/P HYSTERECTOMY GLAUCOMA CERVICAL AND OVARIAN CANCER MIGRAINES ALLERGIES LATEX (FOR ALLERGY USE ONLY): RASH - ALLERGY BEES: HIVES/RASH - ALLERGY SURGICAL HISTORY APPENDECTOMY 1998 TONSILLECTOMY/ADENOIDECTOMY 2007 BILATERAL TUBAL LIGATION 09/2015 COMPLETE HYSTERECTOMY 2017 FAMILY HISTORY FATHER: ALIVE MOTHER: ALIVE 1 SISTER(S) - HEALTHY. 1 SON(S) , 1 DAUGHTER(S) - HEALTHY. MOTHER - IBSSISTER - ADHDSON- ADHD, ASTHMA. SOCIAL HISTORY GENERAL: TOBACCO USE ARE YOU A:CURRENT SMOKER ARE YOU INTERESTED IN QUITTING?NOT READY TO QUIT COUNSELED THE PATIENT ON SMOKING EFFECTS, EDUCATION [id number]/2020 HOW OFTEN DO YOU SMOKE CIGARETTES?EVERY DAY PATIENT COUNSELED ON THE DANGERS OF TOBACCO USE AND URGED TO QUIT:10/06/2019 LATEX QUESTIONNAIRE LATEX ALLERGY : HAVE YOU EVER DEVELOPED ANY TYPE OF REACTION AFTER HANDLING LATEX PRODUCTS SUCH RUBBER GLOVES, CONDOMS, DIAPHRAGMS, BALLOONS, SOCKS, OR UNDERWEAR?YES - PLEASE INDICATE :RUBBER GLOVES LATEX ALLERGY : HAVE YOU EVER DEVELOPED ANY TYPE OF REACTION DURING OR AFTER DENTAL APPOINTMENT, VAGINAL/RECTAL EXAMINATION, SURGICAL PROCEDURE, OR ANY OTHER EXPOSURE?YES LATEX RISK : HAVE YOU EVER HAD ANY DIFFICULTY BREATHING OR HIVES AFTER EATING OR HANDLING ANY FRUITS, OR VEGETABLES; SUCH KIWI, BANANAS, STONE FRUITS, OR CHESTNUTSNO LATEX RISK : DO YOU HAVE A PREVIOUS PERSONAL HISTORY OF MORE THAN NINE SURGERIES, SPINA BIFIDA, OR REPEATED CATHERIZATIONS? NO LATEX RISK : ARE YOU FREQUENTLY EXPOSED TO LATEX PRODUCTS IN YOUR OCCUPATION?NO DATE ASKED : 10/06/2019 PATIENT HAS ACTIVE LATEX ALLERGY. ALCOHOL SCREENING DID YOU HAVE A DRINK CONTAINING ALCOHOL IN THE PAST YEAR?YES HOW OFTEN DID YOU HAVE SIX OR MORE DRINKS ON ONE OCCASION IN THE PAST YEAR?NEVER (0 POINTS) HOW MANY DRINKS DID YOU HAVE ON A TYPICAL DAY WHEN YOU WERE DRINKING IN THE PAST YEAR?1 OR 2 (0 POINTS) HOW OFTEN DID YOU HAVE A DRINK CONTAINING ALCOHOL IN THE PAST YEAR?MONTHLY OR LESS (1 POINT) POINTS1 INTERPRETATIONNEGATIVE RECREATIONAL DRUG USE DRUG USE?YES MARIJUANA CAFFEINE CAFFEINE USE?YES 1-2 DAILY WORSHIP NO ANGLICAN BELIEFS THAT WOULD IMPACT HEALTH CARE, NO ANGLICAN PREFERENCE. LANGUAGE LANGUAGES SPOKEN:LUXEMBOURGISH EDUCATION LEVEL OF EDUCATION:NOT FINISHED COLLEGE LEARNING BARRIERS / SPECIAL NEEDS BARRIERS TO LEARNING?NO HEARING IMPAIRED?NO VISION IMPAIRED?YES COGNITIVELY IMPAIRED?NO :CORRECTIVE LENSES READINESS TO LEARN?YES LEARNING PREFERENCES?NO LEARNING CAPABILITIES PRESENT?YES EMOTIONAL BARRIERS?YES PTSD, DEPRESSION, ANXIETY SPECIAL DEVICES?NO MEDICAL OFFICE MANAGER NEEDED?NO OCCUPATION: DISABILITY. DIET: REGULAR DIET, BALANCED. EXERCISE: DAILY. MARITAL STATUS: SINGLE. OTHERS AT HOME: CHILDREN. NEW PATIENT PAIN DIARY PATIENT DESCRIBES PAIN :IT COMES AND GOES, THROBBING FROM 0-10, WHAT LEVEL IS YOUR PAIN TODAY?7 PRECIPITATING FACTORS NOTHING ALLEVIATING FACTORS NOTHING IMPACT ON FUNCTION SOMETIMES PAIN CLINIC PFS, CLERGY, PUBLIC HEALTH REFERRALS HAS THE PATIENT BEEN EDUCATED REGARDING HIS/HER PLAN OF CARE?YES HAS THE PATIENT BEEN EDUCATED REGARDING PAIN, THE RISK FOR PAIN, THE IMPORTANCE OF EFFECTIVE PAIN MANAGEMENT, AND THE PAIN ASSESSMENT PROCESS?YES HOUSING: RENTS HOUSE. ADVANCE DIRECTIVE ADVANCE DIRECTIVE DISCUSSED WITH PATIENT:YES PATIENT HAS NO ADVANCED DIRECTIVES AND DECLINES INFORMATION ON HCP AT THIS TIME. HOSPITALIZATION/MAJOR DIAGNOSTIC PROCEDURE FOR SURGERIES ABOVE CHILDBIRTH 09/2016 CHILDBIRTH 08/2005 IMHU 08/2014 [facility] 2009 OR 2010 REVIEW OF SYSTEMS CONSTITUTIONAL: ANY RECENT FEVER OR ILLNESS NO . CHILLS NO . GASTROENTEROLOGY: BOWEL INCONTINENCE NO . ANY NEW CHANGE IN BOWEL CONTROL? NO . ABDOMINAL PAIN NO . CONSTIPATION NO . GENITOURINARY: ANY NEW CHANGE IN BLADDER CONTROL? NO . IS THERE A CHANCE YOU COULD BE ? NO . URINARY INCONTINENCE NO . CARDIOLOGY: CHEST PRESSURE NO . CHEST PAIN NO . RESPIRATORY: COUGH NO . SHORTNESS OF BREATH NO . VITAL SIGNS WT 116.4 LBS, HT 60 IN, BMI 22.73 INDEX, BP 125/71 MM HG, HR 70 /MIN, RR 18 /MIN, TEMP 99.2 F, OXYGEN SAT % 97%, SAFE IN ENV? (Y/N) Y, NA INITIALS AW 1347, REVIEWED BY: NAN. EXAMINATION GENERAL EXAMINATION: LUNGS: LUNG SOUNDS ARE CLEAR. HEART: HEART RATE REGULAR. MUSCULOSKELETAL:TRIGGER POINTS:, ELICITED WITH PALPATION OVER CERVICAL SPINOUS PROCESSES AND ACROSS THE TRAPEZIUS MUSCLES L>R. RESTRICTION OF ROM IS NOTED. , MUSCLE STRENGTH TESTING 5/5 BILATERAL UPPER AND LOWER EXTREMITIES., PALPATION: POSITIVE FOR PAIN OVER L/S SPINE. POSITIVE FOR PAIN OVER L/S PARSPINALS. DIAGNOSTIC:REVIEWED EMG UPPER EXTREMITIES 10-18-2013 CERVICAL HWMR-4-5-2014 CT CERVICAL SPINE 06-08-2013 LUMBAR [id number] THORACIC VSFV-1-7-2014 LUMBAR XRAY ALL ABOVE IMAGING REVIEWED AND WNL-JUVENTINO KIMBLE. MULTIPLE AREAS OF TENDER SPOTS UPPER AND LOWER TORSO INDICATIVE OF FIBROMYALGIA. ASSESSMENTS FIBROMYALGIA - M79.7 (PRIMARY) TREATMENT FIBROMYALGIA START CYMBALTA CAPSULE DELAYED RELEASE PARTICLES, 30 MG, 1 CAPSULE, ORALLY, ONCE A DAY, 30 DAY(S), 30, REFILLS 2 OTHERS NOTES: DULOXETINE MATERIAL WAS PRINTED. PROCEDURE CODES FA211 ESTABILISHED PATIENT [facility] FACILITY CHARGE DISPOSITION & COMMUNICATION FOLLOW UP 2 MONTHS (REASON: MED MGMNT-CYMBALTA/FIBRO) ELECTRONICALLY SIGNED BY LAMIN STRATTON ON 10/11/2019 AT 08:30 AM EDT DISCLAIMER : THIS IS A VISIT SUMMARY EXTRACTED FROM THE [employer] CHART. IT IS NOT A COPY OF THE [employer] PROGRESS NOTE. ARNOLDO
== END ==
LOC: M PAIN 13:45
PROVIDERS: ATTEND Nurse Practitioner Family
DX: M79.7 Fibromyalgia (principal)

== ENCOUNTER → 2019-12-20 | Outpatient (POV) | payer OTHER, MEDICAID ==
[~2019-12-20] MED LIST changes: +ALBU8.5H PO; +DICY10CA13 PO; +LATA0.0015 OU
== END ==
LOC: M PAIN 09:00
PROVIDERS: ATTEND Nurse Practitioner Family
DX: M79.18 Myalgia, other site (principal); M54.2 Cervicalgia

== ENCOUNTER → 2020-01-13 | Outpatient (CLI) | payer OTHER, MEDICAID ==
[~2020-01-13] MED LIST changes: +CIPR-249 PO
== END ==
LOC: M LABSMTC 10:40
PROVIDERS: ATTEND Anesthesiology
DX: Z20.828 Contact with and (suspected) exposure to other viral communicable diseases (principal)
CPT/HCPCS: C9803; U0003

== ENCOUNTER → 2020-01-18 | Outpatient (CLI) | payer OTHER, MEDICAID ==
[~2020-01-18] MED LIST changes: +BUPIVACAINE HCL 0.25% 10ML VIAL As Ordered ONE; +BUPIVACAINE HCL 0.25% 30ML VIAL As Ordered ONE; +NORCO, ANEXSIA 5/325MG TABLET (HYDROcodone/ACETAMINOPHEN) As Ordered ONE; +TRIAMCINOLONE ACETONIDE SUSP 40 MG/ML VIAL (J3301) As Ordered ONE; +diazePAM 5 MG TAB As Ordered ONE
== END ==
LOC: M PAIN 14:38
PROVIDERS: ATTEND Anesthesiology
DX: M79.18 Myalgia, other site (principal)
CPT/HCPCS: 20552; G0463; J3301

== ENCOUNTER → 2020-02-15 | Outpatient (CLI) | payer OTHER, MEDICAID ==
[~2020-02-15] MED LIST changes: -BUPIVACAINE HCL 0.25% 10ML VIAL As Ordered ONE; -BUPIVACAINE HCL 0.25% 30ML VIAL As Ordered ONE; -CIPR-249 PO; -NORCO, ANEXSIA 5/325MG TABLET (HYDROcodone/ACETAMINOPHEN) As Ordered ONE; -TRIAMCINOLONE ACETONIDE SUSP 40 MG/ML VIAL (J3301) As Ordered ONE; -diazePAM 5 MG TAB As Ordered ONE
--- NOTE | 2020-02-17 23:49 | ECWPNPC ---
PATIENT NAME: RODNEY PATTERSON : 1985 GENDER: FEMALE VISIT DATE: 02/15/2020 DISCHARGE DATE: 02/15/20 1243 VISIT LOCKED DATE TIME: PHYSICIAN: JUVENTINO MEDINA PHYSICIAN PAGER NO: INACTIVE RESOURCE: JUVENTINO MEDINA REASON FOR APPOINTMENT 1. POST TPI UPPER BACK HISTORY OF PRESENT ILLNESS DEPRESSION SCREENING: PHQ-2 (2015 EDITION) LITTLE INTEREST OR PLEASURE IN DOING THINGS?SEVERAL DAYS FEELING DOWN, DEPRESSED, OR HOPELESS?NOT AT ALL TOTAL SCORE1 HERE FOR FOLLOW-UP POSTPROCEDURE. HAD TRIGGER POINT INJECTIONS LEFT UPPER BACK AND NECK AREA IN . FEELS THEY WERE SOMEWHAT HELPFUL BUT CONTINUES TO HAVE SIGNIFICANT NECK PAIN WITH RADIATION INTO LEFT ARM. REVIEWED MRI OF THE CERVICAL SPINE. DISCUSSED TREATMENT OPTIONS. SUFFERS FROM CHRONIC LOW BACK PAIN. SHE IS INTERESTED IN TRYING PROCEDURES TO ASSIST WITH PAIN. NO RECENT IMAGING. GENERAL: -. FALL RISK SCREENING: SCREENING :NO FALLS REPORTED IN THE LAST YEAR NONE, TRIP AND TWISTED SOMETHING BUT NO FALLS PAIN SCREENING: PATIENT HAS A COMPLAINT OF ACUTE OR CHRONIC PAIN :YES LOCATION OF PAIN:LOW BACK INTENSITY OF PAIN (SCALE OF 1 TO 10):8 WHAT DOES YOUR PAIN FEEL LIKE:THROBBING DURATION:CONTINOUS PAIN IS INCREASED BY:ACTIVITIES PAIN IS DECREASED BY:USE OF PAIN MEDICATIONS NURSING NOTE: -. PAIN CENTER INTAKE QUESTIONS: DO YOU HAVE A HISTORY OF MRSA? :NO DO YOU TAKE A BLOOD THINNERS? :NO DO YOU HAVE ANY BLEEDING DISORDERS? :NO ANY NEW NUMBNESS OR WEAKNESS IN YOUR LEGS OR ARMS? :NO ANY PACEMAKER,DEFIBRILLATOR, OR DORSAL COLUMN STIMULATOR? :NO DO YOU HAVE ANY RASHES OR OPEN SORES? :NO ARE YOU ALLERGIC TO IV DYE? :NO ARE YOU DIABETIC? :NO ANY NEW PROBLEMS WITH YOUR MEDICATIONS? :YES CYMBALTA MAKES HER VERY TIRED, TO WHERE SHE CAN NOT WHAT SHE WANTS TO DO FROM DAY TO DAY HAVE YOU RECEIVED A VACCINE IN THE PAST 30 DAYS? :NO DO YOU PLAN TO RECEIVE A VACCINE IN THE NEXT 21 DAYS? :NO DO YOU NEED ANY PRESCRIPTION? :NO DO YOU TAKE ANY IMMUNOSUPPRESSIVE MEDICATIONS? :NO IS THERE A CHANCE YOU COULD BE ? :NO ARE YOU BREAST FEEDING? :NO CURRENT MEDICATIONS TAKING MOTRIN IB 200 MG TABLET 1-2 TABLETS WITH FOOD OR MILK NEEDED ORALLY THREE TIMES A DAY TAKING FLEXERIL 10 MG TABLET 1 TABLET 1 TO 2 HOURS BEFORE BEDTIME ORALLY ONCE A DAY TAKING CYMBALTA 30 MG CAPSULE DELAYED RELEASE PARTICLES 1 CAPSULE ORALLY ONCE A DAY NOT-TAKING SALONPAS - PAD DIRECTED EXTERNALLY NOT-TAKING VALIUM 5 MG TABLET 1 TAB ORALLY 1/2 HR PRE MRI NOT-TAKING IBUPROFEN 600 MG TABLET 1 TABLET ORALLY EVERY 6-8 HOURS PRN NOT-TAKING LORATADINE-D 24HR 10-240 MG TABLET EXTENDED RELEASE 24 HOUR 1 TABLET ORALLY ONCE A DAY NOT-TAKING TRILEPTAL 300 MG TABLET ORALLY TWICE DAILY NOT-TAKING RISPERDAL 1 MG TABLET 1 TABLET ORALLY BID NOT-TAKING CYMBALTA 30 MG CAPSULE DELAYED RELEASE PARTICLES 1 CAPSULE ORALLY ONE DAILY NOT-TAKING ALBUTEROL SULFATE HFA 108 (90 BASE) MCG/ACT AEROSOL SOLUTION 2 PUFFS INHALATION ONCE A DAY NOT-TAKING PHYSICAL THERAPY EVALUATE AND TREAT LEFT KNEE PAIN DIRECTED N/A 3 TIMES PER WEEK NOT-TAKING FLEXERIL 5 MG TABLET 1 TABLET ORALLY TWICE DAILY PRN NOT-TAKING KNEE BRACE 1 N/A HINGED KNEE BRACE N/A FOR LEFT KNEE SPRAIN ICD 719.46 NOT-TAKING DEPAKOTE 250 MG ([facility]formance[facility]) TABLET DELAYED RELEASE 1 TAB(S) ORALLY QHS NOT-TAKING CLONAZEPAM 0.5 MG (Em[facility]) TABLET 1 TABLET ORALLY QHS NOT-TAKING TYLENOL WITH CODEINE #3 300-30 MG TABLET 1 TABLET NEEDED MDD # 4 ORALLY EVERY 6 HRS NOT-TAKING NABUMETONE 750 MG TABLET 1 TABLET ORALLY TWICE A DAY MEDICATION LIST REVIEWED AND RECONCILED WITH THE PATIENT PAST MEDICAL HISTORY BIPOLAR DISORDER ANXIETY DISORDER ALCOHOL/CANNABIS ABUSE CHRONIC LOW AND MID BACK PAIN FIBROMYALGIA PTSD DEGENERATIVE DISC DISEASE CHRONIC NECK/SHOULDER/ARM PAIN MENOPAUSE S/P HYSTERECTOMY GLAUCOMA CERVICAL AND OVARIAN CANCER MIGRAINES ALLERGIES LATEX (FOR ALLERGY USE ONLY): RASH - ALLERGY BEES: HIVES/RASH - ALLERGY SURGICAL HISTORY APPENDECTOMY 1999 TONSILLECTOMY/ADENOIDECTOMY 2007 BILATERAL TUBAL LIGATION 09/2015 COMPLETE HYSTERECTOMY 2017 FAMILY HISTORY FATHER: ALIVE MOTHER: ALIVE 1 SISTER(S) - HEALTHY. 1 SON(S) , 1 DAUGHTER(S) - HEALTHY. MOTHER - IBSSISTER - ADHDSON- ADHD, ASTHMA. SOCIAL HISTORY GENERAL: TOBACCO USE ARE YOU A:CURRENT SMOKER HOW OFTEN DO YOU SMOKE CIGARETTES?EVERY DAY ARE YOU INTERESTED IN QUITTING?NOT READY TO QUIT PATIENT COUNSELED ON THE DANGERS OF TOBACCO USE AND URGED TO QUIT:10/06/2019 COUNSELED THE PATIENT ON SMOKING EFFECTS, EDUCATION [id number]/07/2020 LATEX QUESTIONNAIRE LATEX ALLERGY : HAVE YOU EVER DEVELOPED ANY TYPE OF REACTION AFTER HANDLING LATEX PRODUCTS SUCH RUBBER GLOVES, CONDOMS, DIAPHRAGMS, BALLOONS, SOCKS, OR UNDERWEAR?YES - PLEASE INDICATE :RUBBER GLOVES LATEX ALLERGY : HAVE YOU EVER DEVELOPED ANY TYPE OF REACTION DURING OR AFTER DENTAL APPOINTMENT, VAGINAL/RECTAL EXAMINATION, SURGICAL PROCEDURE, OR ANY OTHER EXPOSURE?YES LATEX RISK : HAVE YOU EVER HAD ANY DIFFICULTY BREATHING OR HIVES AFTER EATING OR HANDLING ANY FRUITS, OR VEGETABLES; SUCH KIWI, BANANAS, STONE FRUITS, OR CHESTNUTSNO LATEX RISK : DO YOU HAVE A PREVIOUS PERSONAL HISTORY OF MORE THAN NINE SURGERIES, SPINA BIFIDA, OR REPEATED CATHERIZATIONS? NO LATEX RISK : ARE YOU FREQUENTLY EXPOSED TO LATEX PRODUCTS IN YOUR OCCUPATION?NO DATE ASKED : 02/15/2020 PATIENT HAS ACTIVE LATEX ALLERGY. ALCOHOL SCREENING DID YOU HAVE A DRINK CONTAINING ALCOHOL IN THE PAST YEAR?YES HOW OFTEN DID YOU HAVE SIX OR MORE DRINKS ON ONE OCCASION IN THE PAST YEAR?NEVER (0 POINTS) HOW MANY DRINKS DID YOU HAVE ON A TYPICAL DAY WHEN YOU WERE DRINKING IN THE PAST YEAR?1 OR 2 (0 POINTS) HOW OFTEN DID YOU HAVE A DRINK CONTAINING ALCOHOL IN THE PAST YEAR?MONTHLY OR LESS (1 POINT) POINTS1 INTERPRETATIONNEGATIVE RECREATIONAL DRUG USE DRUG USE?YES MARIJUANA CAFFEINE CAFFEINE USE?YES 1-2 DAILY [place]HER[place] NO MANDAEN BELIEFS THAT WOULD IMPACT HEALTH CARE, NO MANDAEN PREFERENCE. LANGUAGE LANGUAGES SPOKEN:[place] EDUCATION LEVEL OF EDUCATION:NOT FINISHED COLLEGE LEARNING BARRIERS / SPECIAL NEEDS BARRIERS TO LEARNING?NO HEARING IMPAIRED?NO VISION IMPAIRED?YES COGNITIVELY IMPAIRED?NO :CORRECTIVE LENSES READINESS TO LEARN?YES LEARNING PREFERENCES?NO LEARNING CAPABILITIES PRESENT?YES EMOTIONAL BARRIERS?YES PTSD, DEPRESSION, ANXIETY SPECIAL DEVICES?NO SWING GRINDER NEEDED?NO OCCUPATION: DISABILITY. DIET: REGULAR DIET, BALANCED. EXERCISE: DAILY. MARITAL STATUS: SINGLE. OTHERS AT HOME: CHILDREN. NEW PATIENT PAIN DIARY PATIENT DESCRIBES PAIN : IT COMES AND GOES, THROBBING, FROM 0-10, WHAT LEVEL IS YOUR PAIN TODAY? 7, PRECIPITATING FACTORS NOTHING, ALLEVIATING FACTORS NOTHING, IMPACT ON FUNCTION SOMETIMES. PAIN CLINIC PFS, CLERGY, PUBLIC HEALTH REFERRALS HAS THE PATIENT BEEN EDUCATED REGARDING HIS/HER PLAN OF CARE?YES HAS THE PATIENT BEEN EDUCATED REGARDING PAIN, THE RISK FOR PAIN, THE IMPORTANCE OF EFFECTIVE PAIN MANAGEMENT, AND THE PAIN ASSESSMENT PROCESS?YES HOUSING: RENTS HOUSE. ADVANCE DIRECTIVE ADVANCE DIRECTIVE DISCUSSED WITH PATIENT:YES PATIENT HAS NO ADVANCED DIRECTIVES AND DECLINES INFORMATION ON HCP AT THIS TIME. HOSPITALIZATION/MAJOR DIAGNOSTIC PROCEDURE FOR SURGERIES ABOVE [facility] 09[facility] 08/2014 [facility] 2009 OR 2010 REVIEW OF SYSTEMS CONSTITUTIONAL: ANY RECENT FEVER NO . CHILLS NO . WEIGHT CHANGE OF UNKNOWN REASONS NO . GASTROENTEROLOGY: NEW UNEXPLAINABLE CHANGES IN BOWEL CONTROL NO . CONSTIPATION NO . GENITOURINARY: ANY NEW CHANGE IN BLADDER CONTROL? NO . NEUROLOGY: NEW ONSET DIZZINESS OR NEUROLOGICAL CHANGES NOT MENTIONED NO . NEW NUMBNESS OR PAIN PATTERNS NOT MENTIONED AND PERTINENT TO TODAY'S VISIT NO . CARDIOLOGY: NEW CHEST PRESSURE NO . NEW CHEST PAIN NO . RESPIRATORY: UNEXPLAINABLE COUGH NO . NEW SHORTNESS OF BREATH NO . VITAL SIGNS WT 111 LBS, HT 60 IN, BMI 21.68 INDEX, BP 109/65 MM HG, HR 70 /MIN, RR 18 /MIN, TEMP 97.7 F, OXYGEN SAT % 97, SAFE IN ENV? (Y/N) Y, NA INITIALS LM, REVIEWED BY: LEIGH ANN. EXAMINATION GENERAL EXAMINATION: LUNGS: LUNG SOUNDS ARE CLEAR . HEART: HEART RATE REGULAR . MUSCULOSKELETAL:*, MUSCLE STRENGTH TESTING 5/5 BILATERAL UPPER EXTREMITIES. . CERVICAL:+ FOR PAIN WITH PALPATION OF CERVICAL SPINE. + FOR PAIN WITH PALPATION OF CERVICAL PARASPINALS. . DIAGNOSTIC TESTS REVIEWED CERVICAL MRI-2019. ASSESSMENTS DISC DISPLACEMENT, CERVICAL - M50.20 (PRIMARY) LOW BACK PAIN AT MULTIPLE SITES - M54.5 TREATMENT DISC DISPLACEMENT, CERVICAL KAREN SPINE LS [id number] NOTES: STOPPED CYMBALTA DUE TO COMPLAINTS OF FATIGUE SINCE STARTING THIS MEDICATION. C4-5 CERVICAL EPIDURAL STEROID INJECTION. X-RAY OF LUMBAR SPINE. PREVENTIVE MEDICINE (MALE) PREVENTIVE WELLNESS PLAN: TODAY'S VISIT PATIENT PRESENTS TODAY FOR: STOPPED CYMBALTA AND WILL HAVE A C4-5 CERVICAL EPDURAL STEROID DONE. WILL SEE POST PROC AFTER PROCEDURE CODES FA211 ESTABILISHED PATIENT [facility] CHARGE DISPOSITION & COMMUNICATION FOLLOW UP POST PROC (REASON: C4-5 CERVICAL EPIDURAL STEROID INJECTION) ELECTRONICALLY SIGNED BY LAMIN STRATTON ON 02/17/2020 AT 03:31 PM EDT DISCLAIMER : THIS IS A VISIT SUMMARY EXTRACTED FROM THE [facility] CHART. IT IS NOT A COPY OF THE [employer] PROGRESS NOTE. MTDD
== END ==
LOC: M PAIN 11:15
PROVIDERS: ATTEND Nurse Practitioner Family
DX: M50.20 Other cervical disc displacement, unspecified cervical region (principal); M54.5 Low back pain; M79.7 Fibromyalgia; G43.909 Migraine, unspecified, not intractable, without status migrainosus; F17.210 Nicotine dependence, cigarettes, uncomplicated; Z86.59 Personal history of other mental and behavioral disorders; Z91.030 Bee allergy status; Z91.040 Latex allergy status; Z79.899 Other long term (current) drug therapy

== ENCOUNTER 2020-02-20 06:27 | Emergency (ER) | payer MEDICAID, OTHER ==
[~2020-02-20] VITALS: Ht 152.4 cm; Wt 50.0 kg
[~2020-02-20 06:27] MED LIST changes: -ALBU8.5H PO; -DICY10CA13 PO; -LATA0.0015 OU
[2020-02-20] MEDS ORDERED: ALBU8.5H PO (06:42)
[2020-02-20] MEDS ORDERED: DICY10CA13 PO (06:42)
[2020-02-20] MEDS ORDERED: LATA0.0015 OU (06:42)
[2020-02-20] MEDS ORDERED: ACETAMINOPHEN 500 MG TAB PO ONE (07:15)
[2020-02-20] MEDS ORDERED: KETOROLAC 60MG 2ML VIAL IM ONE (07:15)
--- NOTE | 2020-02-20 08:03 | REPVR ---
PROCEDURE INFORMATION: Exam: CT Lumbar Spine Without Contrast Exam date and time: 02/20/2020 7:41 AM Age: 34 years old Clinical indication: Low back pain; Additional info: Vertebral tenderness into coccyx, near fall 3 days ago TECHNIQUE: Imaging protocol: Computed tomography images of the lumbar spine without contrast. Radiation optimization: All CT scans at this facility use at least one of these dose optimization techniques: automated exposure control; mA and/or kV adjustment per patient size (includes targeted exams where dose is matched to clinical indication); or iterative reconstruction. COMPARISON: CR Spine. Lumbosacral, complete 06/08/2013 5:02 PM FINDINGS: Vertebrae: No acute fractures. Discs/Spinal canal/Neural foramina: No significant disc protrusion. No severe spinal canal stenosis. No significant neural foraminal narrowing. Sacrum/coccyx: Tip of the coccyx is excluded from view. Soft tissues: Unremarkable. IMPRESSION: Tip of the coccyx is excluded from view. No acute fractures. Electronically signed by: Shakir Mendez On 02/20/2020 08:02:28 AM
[2020-02-20] MEDS ORDERED: CYCL-707 PO (08:33)
[2020-02-20 08:41] VITALS: BP 96/54
== END 2020-02-20 08:42 | disposition home or self-care (01) ==
LOC: M ED 06:27
DX: S39.012A Strain of muscle, fascia and tendon of lower back, initial encounter (principal); W01.0XXA Fall on same level from slipping, tripping and stumbling without subsequent striking against object, initial encounter; Y92.9 Unspecified place or not applicable; Y93.9 Activity, unspecified; Y99.9 Unspecified external cause status; F17.200 Nicotine dependence, unspecified, uncomplicated; Z91.030 Bee allergy status; Z91.040 Latex allergy status; Z79.899 Other long term (current) drug therapy
CPT/HCPCS: 72131; 96372; 99283; J1885

== ENCOUNTER → 2020-03-10 | Outpatient (CLI) | payer OTHER ==
[~2020-03-10] MED LIST changes: +ALBU8.5H PO; +DICY10CA13 PO; +LATA0.0015 OU
== END ==
LOC: M LABSMTC 11:44
PROVIDERS: ATTEND Anesthesiology
DX: Z11.59 Encounter for screening for other viral diseases (principal)
CPT/HCPCS: C9803; U0003

== ENCOUNTER → 2020-03-14 | Outpatient (CLI) | payer OTHER, MEDICAID ==
[~2020-03-14] MED LIST changes: +CIPR-249 PO; +ISOVUE-M 300 61% 15ML VIAL As Ordered ONE; +LIDOCAINE 1% SDV 30ML VIAL As Ordered ONE; +NORCO, ANEXSIA 5/325MG TABLET (HYDROcodone/ACETAMINOPHEN) As Ordered ONE; +diazePAM 2 MG TAB As Ordered ONE; +methylPREDNISolone SUSP 40MG/ML 1ML VIAL (DEPO MEDROL) As Ordered ONE
--- NOTE | 2020-03-14 17:42 | REP ---
INDICATION: CERVICAL EPIDURAL. COMPARISON: None. TECHNIQUE: Three images from a fluoroscopic guidance for cervical epidural injection in the pain clinic were provided. FINDINGS: Initial image shows a needle just to the left of midline at the C7-T1 disc space. 2nd image shows epidural contrast in place the 3rd image shows a needle removed. Fluoroscopy time 18.5 seconds. IMPRESSION: Status post cervical epidural injection as described. <Electronically signed by Demetrius Recinos > 03/14/20 [id number]
--- NOTE | 2020-03-21 03:28 | ECWPNPC ---
PATIENT NAME: RODNEY PATTERSON : 1985 GENDER: FEMALE VISIT DATE: 03/14/2020 DISCHARGE DATE: 03/14/20 1550 VISIT LOCKED DATE TIME: PHYSICIAN: CALLIE VILLARREAL MD PHYSICIAN PAGER NO: INACTIVE RESOURCE: CALLIE VILLARREAL MD REASON FOR APPOINTMENT 1. CERVICAL EPIDURAL STEROID INJECTION HISTORY OF PRESENT ILLNESS GENERAL: -. FALL RISK SCREENING: SCREENING :TWO OR MORE FALLS WITHOUT INJURY IN THE PAST YEAR PAIN SCREENING: PATIENT HAS A COMPLAINT OF ACUTE OR CHRONIC PAIN :YES LOCATION OF PAIN:NECK, LOW BACK LEFT ARM INTENSITY OF PAIN (SCALE OF 1 TO 10):8 WHAT DOES YOUR PAIN FEEL LIKE:BURNING, THROBBING DURATION:CONTINOUS PAIN IS INCREASED BY:ACTIVITIES, PROLONGED STANDING PAIN IS DECREASED BY:USE OF PAIN MEDICATIONS HEAT NURSING NOTE: -. PAIN CENTER INTAKE QUESTIONS: DO YOU HAVE A HISTORY OF MRSA? :NO DO YOU TAKE A BLOOD THINNERS? :NO DO YOU HAVE ANY BLEEDING DISORDERS? :NO ANY NEW NUMBNESS OR WEAKNESS IN YOUR LEGS OR ARMS? :NO ANY PACEMAKER,DEFIBRILLATOR, OR DORSAL COLUMN STIMULATOR? :NO DO YOU HAVE ANY RASHES OR OPEN SORES? :NO ARE YOU ALLERGIC TO IV DYE? :NO ARE YOU DIABETIC? :NO ANY NEW PROBLEMS WITH YOUR MEDICATIONS? :NO HAVE YOU RECEIVED A VACCINE IN THE PAST 30 DAYS? :NO DO YOU PLAN TO RECEIVE A VACCINE IN THE NEXT 21 DAYS? :NO DO YOU TAKE ANY IMMUNOSUPPRESSIVE MEDICATIONS? :NO ANY HISTORY OF SEIZURES? :NO ANY HISTORY OF CARDIAC ISSUES OR EVENTS? :YES BENIGN HEART MURMUR DO YOU HAVE SLEEP APNEA? :NO ANY RECENT HEAD INJURY? :NO DO YOU HAVE ANY NEW INFECTIONS? :NO IS THERE A CHANCE YOU COULD BE ? :NO ARE YOU BREAST FEEDING? :NO WHEN DID YOU LAST EAT? : - WHEN DID YOU LAST DRINK? : - WHAT DID YOU LAST DRINK? : - NAME OF PERSON DRIVING YOU HOME? : -TOBI [facility]R DO YOU HAVE ANY OTHER QUESTIONS OR CONCERNS? : - CURRENT MEDICATIONS TAKING MOTRIN IB 200 MG TABLET 1-2 TABLETS WITH FOOD OR MILK NEEDED ORALLY THREE TIMES A DAY, NOTES: 03-14-20 0900 NOT-TAKING FLEXERIL 10 MG TABLET 1 TABLET 1 TO 2 HOURS BEFORE BEDTIME ORALLY ONCE A DAY NOT-TAKING CYMBALTA 30 MG CAPSULE DELAYED RELEASE PARTICLES 1 CAPSULE ORALLY ONCE A DAY NOT-TAKING SALONPAS - PAD DIRECTED EXTERNALLY NOT-TAKING VALIUM 5 MG TABLET 1 TAB ORALLY 1/2 HR PRE MRI NOT-TAKING IBUPROFEN 600 MG TABLET 1 TABLET ORALLY EVERY 6-8 HOURS PRN NOT-TAKING LORATADINE-D 24HR 10-240 MG TABLET EXTENDED RELEASE 24 HOUR 1 TABLET ORALLY ONCE A DAY NOT-TAKING TRILEPTAL 300 MG TABLET ORALLY TWICE DAILY NOT-TAKING RISPERDAL 1 MG TABLET 1 TABLET ORALLY BID NOT-TAKING CYMBALTA 30 MG CAPSULE DELAYED RELEASE PARTICLES 1 CAPSULE ORALLY ONE DAILY NOT-TAKING ALBUTEROL SULFATE HFA 108 (90 BASE) MCG/ACT AEROSOL SOLUTION 2 PUFFS INHALATION ONCE A DAY NOT-TAKING PHYSICAL THERAPY EVALUATE AND TREAT LEFT KNEE PAIN DIRECTED N/A 3 TIMES PER WEEK NOT-TAKING FLEXERIL 5 MG TABLET 1 TABLET ORALLY TWICE DAILY PRN NOT-TAKING KNEE BRACE 1 N/A HINGED KNEE BRACE N/A FOR LEFT KNEE SPRAIN ICD 719.46 NOT-TAKING DEPAKOTE 250 MG ([facility]) TABLET DELAYED RELEASE 1 TAB(S) ORALLY QHS NOT-TAKING CLONAZEPAM 0.5 MG ([facility]) TABLET 1 TABLET ORALLY QHS NOT-TAKING TYLENOL WITH CODEINE #3 300-30 MG TABLET 1 TABLET NEEDED MDD # 4 ORALLY EVERY 6 HRS NOT-TAKING NABUMETONE 750 MG TABLET 1 TABLET ORALLY TWICE A DAY MEDICATION LIST REVIEWED AND RECONCILED WITH THE PATIENT PAST MEDICAL HISTORY BIPOLAR DISORDER ANXIETY DISORDER ALCOHOL/CANNABIS ABUSE CHRONIC LOW AND MID BACK PAIN FIBROMYALGIA PTSD DEGENERATIVE DISC DISEASE CHRONIC NECK/SHOULDER/ARM PAIN MENOPAUSE S/P HYSTERECTOMY GLAUCOMA CERVICAL AND OVARIAN CANCER MIGRAINES ALLERGIES LATEX (FOR ALLERGY USE ONLY): RASH - ALLERGY BEES: HIVES/RASH - ALLERGY SURGICAL HISTORY APPENDECTOMY 1998 TONSILLECTOMY/ADENOIDECTOMY 2007 BILATERAL TUBAL LIGATION 09/2015 COMPLETE HYSTERECTOMY 2017 FAMILY HISTORY FATHER: ALIVE MOTHER: ALIVE 1 SISTER(S) - HEALTHY. 1 SON(S) , 1 DAUGHTER(S) - HEALTHY. MOTHER - IBSSISTER - ADHDSON- ADHD, ASTHMA. SOCIAL HISTORY GENERAL: TOBACCO USE ARE YOU A:CURRENT SMOKER ARE YOU INTERESTED IN QUITTING?NOT READY TO QUIT COUNSELED THE PATIENT ON SMOKING EFFECTS, EDUCATION [id number]/2020 HOW OFTEN DO YOU SMOKE CIGARETTES?EVERY DAY PATIENT COUNSELED ON THE DANGERS OF TOBACCO USE AND URGED TO QUIT:10/06/2019 LATEX QUESTIONNAIRE LATEX ALLERGY : HAVE YOU EVER DEVELOPED ANY TYPE OF REACTION AFTER HANDLING LATEX PRODUCTS SUCH RUBBER GLOVES, CONDOMS, DIAPHRAGMS, BALLOONS, SOCKS, OR UNDERWEAR?YES - PLEASE INDICATE :RUBBER GLOVES LATEX ALLERGY : HAVE YOU EVER DEVELOPED ANY TYPE OF REACTION DURING OR AFTER DENTAL APPOINTMENT, VAGINAL/RECTAL EXAMINATION, SURGICAL PROCEDURE, OR ANY OTHER EXPOSURE?YES RASH LATEX RISK : HAVE YOU EVER HAD ANY DIFFICULTY BREATHING OR HIVES AFTER EATING OR HANDLING ANY FRUITS, OR VEGETABLES; SUCH KIWI, BANANAS, STONE FRUITS, OR CHESTNUTSNO LATEX RISK : DO YOU HAVE A PREVIOUS PERSONAL HISTORY OF MORE THAN NINE SURGERIES, SPINA BIFIDA, OR REPEATED CATHERIZATIONS? NO LATEX RISK : ARE YOU FREQUENTLY EXPOSED TO LATEX PRODUCTS IN YOUR OCCUPATION?NO DATE ASKED : 03/14/2020 PATIENT HAS ACTIVE LATEX ALLERGY. ALCOHOL SCREENING DID YOU HAVE A DRINK CONTAINING ALCOHOL IN THE PAST YEAR?YES HOW OFTEN DID YOU HAVE SIX OR MORE DRINKS ON ONE OCCASION IN THE PAST YEAR?NEVER (0 POINTS) HOW MANY DRINKS DID YOU HAVE ON A TYPICAL DAY WHEN YOU WERE DRINKING IN THE PAST YEAR?1 OR 2 (0 POINTS) HOW OFTEN DID YOU HAVE A DRINK CONTAINING ALCOHOL IN THE PAST YEAR?MONTHLY OR LESS (1 POINT) POINTS1 INTERPRETATIONNEGATIVE RECREATIONAL DRUG USE DRUG USE?YES MARIJUANA CAFFEINE CAFFEINE USE?YES 1-2 DAILY CHEONDOISM NO EPISCOPAL BELIEFS THAT WOULD IMPACT HEALTH CARE, NO EPISCOPAL PREFERENCE. LANGUAGE LANGUAGES SPOKEN:TAJIK EDUCATION LEVEL OF EDUCATION:NOT FINISHED COLLEGE LEARNING BARRIERS / SPECIAL NEEDS BARRIERS TO LEARNING?NO HEARING IMPAIRED?NO VISION IMPAIRED?YES COGNITIVELY IMPAIRED?NO :CORRECTIVE LENSES READINESS TO LEARN?YES LEARNING PREFERENCES?NO LEARNING CAPABILITIES PRESENT?YES EMOTIONAL BARRIERS?YES PTSD, DEPRESSION, ANXIETY SPECIAL DEVICES?NO COLOR CHECKER NEEDED?NO OCCUPATION: DISABILITY. DIET: REGULAR DIET, BALANCED. EXERCISE: DAILY. MARITAL STATUS: SINGLE. OTHERS AT HOME: CHILDREN. PATIENT DESCRIBES PAIN : IT COMES AND GOES, THROBBING, FROM 0-10, WHAT LEVEL IS YOUR PAIN TODAY? 7, PRECIPITATING FACTORS NOTHING, ALLEVIATING FACTORS NOTHING, IMPACT ON FUNCTION SOMETIMES. PAIN CLINIC PFS, CLERGY, PUBLIC HEALTH REFERRALS HAS THE PATIENT BEEN EDUCATED REGARDING HIS/HER PLAN OF CARE?YES HAS THE PATIENT BEEN EDUCATED REGARDING PAIN, THE RISK FOR PAIN, THE IMPORTANCE OF EFFECTIVE PAIN MANAGEMENT, AND THE PAIN ASSESSMENT PROCESS?YES HOUSING: RENTS HOUSE. ADVANCE DIRECTIVE ADVANCE DIRECTIVE DISCUSSED WITH PATIENT:YES PATIENT HAS NO ADVANCED DIRECTIVES AND DECLINES INFORMATION ON HCP AT THIS TIME. HOSPITALIZATION/MAJOR DIAGNOSTIC PROCEDURE FOR SURGERIES ABOVE CHILDBIRTH 09/2015 CHILDBIRTH 08/2005 IMHU 08/2014 IM 2009 OR 2010 VITAL SIGNS WT 106.0 LBS, HT 60 IN, BMI 20.70 INDEX, BP 122/78 MM HG, HR 84 /MIN, RR 18 /MIN, TEMP 97.9 F, OXYGEN SAT % 97%, SAFE IN ENV? (Y/N) YES, NA INITIALS AW 1351, REVIEWED BY: KG. EXAMINATION GENERAL EXAMINATION: THE PATIENT IS ALERT, ORIENTED TIMES THREE AND COOPERATIVE. HEART SHOWS REGULAR RHYTHM, NO MURMURS AND NO GALLOPS. LUNGS ARE CLEAR TO AUSCULTATION. ASSESSMENTS CERVICAL DISC DISORDER WITH RADICULOPATHY, UNSPECIFIED CERVICAL REGION - M50.10 (PRIMARY) TREATMENT CERVICAL DISC DISORDER WITH RADICULOPATHY, UNSPECIFIED CERVICAL REGION [facility] FLUORO GUIDE SPINE INJECTION (PAIN)[id number] MEDICATION: NORCO TABLET 5MG/325MG ORALLY (HYDROCODONE/ACETAMINOPHEN)ADAM DRAKE 03/14/2020 2:08:41 PM > VERIFIED CAREN LOYOLA 03/14/2020 2:11:23 PM > GIVEN LOT [id number] EXP 07/24 CAREN LOYOLA 03/14/2020 2:18:16 PM > PT DROPPED THE PILL ON FLOOR , THIS NURSE WASTED WITH ADAM CAMARILLO RN 03/14/2020 2:19:56 PM > VERIFIED 2ND DOSE CAREN LOYOLA 03/14/2020 2:21:14 PM > LOT #[id number] EXP 02/2021 GIVEN MEDICATION: VALIUM TAB 2MG ORALLY (DIAZEPAM)ADAM DRAKE 03/14/2020 2:08:57 PM > VERIFIED CAREN LOYOLA 03/14/2020 2:12:10 PM > GIVEN LOT [id number] EXP 05/2020 CAREN LOYOLA 03/14/2020 2:18:56 PM > PT DROPPED MEDIATION ON THE FLOOR WASTED WITH Nia COLBERT RN IN OMNICELL ADAM DRAKE 03/14/2020 2:20:13 PM > VERIFIED 2ND DOSE CAREN LOYOLA 03/14/2020 2:21:56 PM > LOT [id number] EXP 05/2020 GIVEN SALINE LOCKGUCAREN HAWKINS 03/14/2020 2:05:42 PM > IV PLACED PER ORDER FROM DR VILLARREAL PROCEDURES PAIN NURSING RECORD PRE-PROCEDURE IV SITE RIGHT ANTECUBITAL, IV STARTED # 22, IV STARTED BY: Michael LOYOLA RN, IV ATTEMPTS 1, PRE-PROCEDURE ORAL MEDICATIONS HYDROCODONE 5/325 MG PO AND 2 MG VALIUM PO GIVEN BY CARISSA PICKENSBENCH PATTERNMAKER METAL IN ROOM 1455, PHYSICIAN IN ROOM 1505, START 1513, FINISH 1518, PHYSICIAN OUT OF ROOM 1521, OUT OF ROOM 1530, STEROID DEPOMEDROL, O2 RA, ECG NORMAL SINUS, PATIENT SHIELDED YES, SAFETY STRAP YES, PREP BETADINE PREP BY Paris SCHWARZ RN, IV INFUSED N/A, DRESSING TEGADERM APPLIED BY DR VILLARREAL LOC: 1. ALERT, ORIENTED, CAREN LOYOLA 03/14/2020 3:33:04 PM > RESP: 1. REGULAR, NO DYSPNEA, MILLACAREN 03/14/2020 3:33:09 PM > COLOR: 1. PINK, MILLACAREN 03/14/2020 3:33:15 PM > SKIN: 1. WARM, DRY, MILLACAREN 03/14/2020 3:33:22 PM > POSITION: 1. PRONE, CAREN LOYOLA 03/14/2020 3:33:29 PM > NOTES VALIUM AND OXYCODONE DROPPED ON FLOOR WASTED WITH Epifanio COLBERT RN AND PULLED DOSE AGAIN FROM OMNICEL POST PROCEDURE PT EXPERIENCED SOME TREMBLING VS STABLE 125/65 68 18 99% A BLANKET WAS PLACED ON THE PT AND SOME APPLE JUICE GIVEN. PT STATES SHE HAS "ANXIETY" SHE DID NOT HAVE THESE SYMPTOMS PRIOR TO PROCEDURE . PT RECOVERED AND DR VILLARREAL NOTIFIED DR [facility] NURSE TO PUT IN CHART THAT PATIENT IS TO HAVE AN IV FOR ALL PROCEDURES. I DISCUSSED THIS WITH PT WELL. DISCHARGE: POST PAIN 0 , DRESSING SITE DRY AND INTACT , IV DISCONTINUED, SITE CLEAR, CATHETER INTACT , GAIT STEADY , TEACHING COMPLETED, PATIENT ACKNOWLEDGES UNDERSTANDING YES WENT OVER ENTIRE DISCHARGE WITH PT INCLUDING INJECTION SITE CARE AND LIMITATIONS . WE DISCUSSED THE NEED TO USE EXTRA PRECAUTIONS WITH COVID DUE TO STEROID GIVEN WITH INJECTIONS PT VERBALIZES UNDERSTNADING, PATIENT DISCHARGED AT 1550 PN CERVICAL EPIDURAL PRE PROCEDURE DIAGNOSIS CERVICAL DISC DISORDER WITH RADICULOPATHY POST PROCEDURE DIAGNOSIS CERVICAL DISC DISORDER WITH RADICULOPATHY PROCEDURE CERVICAL EPIDURAL STEROID INJECTION UNDER FLUOROSCOPIC GUIDANCE SURGEON DR. CALLIE VILLARREAL INDUSTRIAL CLEANER NONE ANESTHESIA LOCAL PRE PROCEDURE NOTE THE PATIENT HAS A HISTORY OF CHRONIC CERVICAL PAIN. I EVALUATED THE PATIENT AND REVIEWED THE CHART. I WENT OVER THE RISKS, ALTERNATIVES, AND BENEFITS ASSOCIATED WITH THIS PROCEDURE. I DISCUSSED THAT THE USE OF STEROIDS MAY CONTRIBUTE TO IMMUNOSUPPRESSION OF THE PATIENT'S BODY AGAINST INFECTIONS SUCH COVID-19. THE PATIENT IS AWARE OF THE POTENTIAL COMPLICATIONS ASSOCIATED WITH THIS VIRUS, INCLUDING, BUT NOT LIMITED TO, . THE PATIENT WOULD LIKE TO PROCEED AND GIVE CONSENT TO PERFORMED THE PROCEDURE. THE PATIENT DENIES UNEXPLAINABLE WEIGHT LOSS, FEVER, CHILLS, OR NEW CHANGES IN URINARY OR BOWEL CONTROL. THE PATIENT IS COVID-19 NEGATIVE DESCRIPTION OF PROCEDURE THE PATIENT WAS BROUGHT TO THE PROCEDURE ROOM AND PLACED IN THE PRONE POSITION. THE CERVICOTHORACIC AREA WAS CLEANED WITH BETADINE SOLUTION AND DRAPED ASEPTICALLY. THE PROCEDURE WAS DONE UNDER STERILE CONDITIONS. A TIMEOUT WAS PERFORMED WHERE LATERALITY AND THE SITE OF THE PROCEDURE WERE CHECKED AND CONFIRMED WITH EVERYONE IN THE ROOM. UNDER FLUOROSCOPIC GUIDANCE, THE TARGET WAS SELECTED AT THE INTERLAMINAR LEVEL OF C7-T1. I CONFIRMED AGAIN WITH EVERYONE IN THE ROOM THE LATERALITY OF THE TARGET AT 1508. LIDOCAINE WAS USED TO NUMB THE SKIN AND THE SUBCUTANEOUS TISSUE BELOW IT. EPIDURAL TUOHY NEEDLE, 17-GAUGE, WAS ADVANCED UNDER FLUOROSCOPIC GUIDANCE AND FOLLOWING PATIENT FEEDBACK UNTIL THE EPIDURAL SPACE WAS REACHED 4 CM DEEP INTO THE SKIN BY THE LOSS OF RESISTANCE TECHNIQUE. ISOVUE-M DYE 30%, 0.25 ML, WAS INJECTED SHOWING ADEQUATE SPREAD OF THE DYE. THEN, A SOLUTION OF 3 ML OF NORMAL SALINE WITH DEPO-MEDROL 80MG WAS INJECTED SLOWLY FOLLOWING PATIENT FEEDBACK. THE MEDICATIONS WERE VERIFIED WITH THE NURSE. THERE WAS NO EVIDENCE OF BLOOD, PARESTHESIA OR CEREBROSPINAL FLUID DURING THE PROCEDURE. ESTIMATED BLOOD LOSS WAS LESS THAN 5 ML. THE PATIENT WAS SENT TO THE RECOVERY ROOM. THE PATIENT WAS MOVING THE EXTREMITIES AND DOING WELL. THERE WERE NO COMPLICATIONS DURING THE PROCEDURE. FLUOROSCOPY TIME WAS 18 SECONDS POST PROCEDURE NOTE THE PATIENT WILL BE SEEN IN A FOLLOW UP IN THE NEXT FEW WEEKS. I AM LOOKING FOR LONG LASTING RELIEF FOR THE PATIENT WITH THIS INTERVENTION. INSTRUCTIONS WERE GIVEN, QUESTIONS WERE ANSWERED, AND THE PATIENT EXPRESSED UNDERSTANDING AND AGREES WITH THE PLAN. I, KRUNAL CLEMONS, DOCUMENTED THE ABOVE INFORMATION ACTING A SCRIBE FOR DR. VILLARERAL. I HAVE REVIEWED THE ABOVE DOCUMENT, WRITTEN BY KRUNAL CLEMONS, AUTOMOBILE SERVICE STATION MANAGER, AND I VERIFY THAT IT IS ACCURATE PROCEDURE CODES 83288 CERVICAL/THORACIC W/ IMAGING DISPOSITION & COMMUNICATION FOLLOW UP FOLLOW UP WITH WEEKEND CAREGIVER (REASON: POST CHERYL) ELECTRONICALLY SIGNED BY CALLIE VILLARREAL MD, ON 03/20/2020 AT 02:05 PM EST DISCLAIMER : THIS IS A VISIT SUMMARY EXTRACTED FROM THE [employer] CHART. IT IS NOT A COPY OF THE [employer] PROGRESS NOTE. HEDYD
== END ==
LOC: M PAIN 13:30
PROVIDERS: ATTEND Anesthesiology
DX: M50.10 Cervical disc disorder with radiculopathy, unspecified cervical region (principal); M79.7 Fibromyalgia; G43.909 Migraine, unspecified, not intractable, without status migrainosus; F17.210 Nicotine dependence, cigarettes, uncomplicated; Z86.59 Personal history of other mental and behavioral disorders; Z91.030 Bee allergy status; Z91.040 Latex allergy status; Z79.899 Other long term (current) drug therapy
CPT/HCPCS: 62321; J1030; Q9967

== ENCOUNTER 2020-03-16 12:16 | Emergency (ER) | payer MEDICAID, OTHER ==
[~2020-03-16] VITALS: Ht 152.4 cm; Wt 48.4 kg
[~2020-03-16 12:16] MED LIST changes: -CIPR-249 PO; -ISOVUE-M 300 61% 15ML VIAL As Ordered ONE; -LIDOCAINE 1% SDV 30ML VIAL As Ordered ONE; -NORCO, ANEXSIA 5/325MG TABLET (HYDROcodone/ACETAMINOPHEN) As Ordered ONE; -diazePAM 2 MG TAB As Ordered ONE; -methylPREDNISolone SUSP 40MG/ML 1ML VIAL (DEPO MEDROL) As Ordered ONE
[2020-03-16] MEDS ORDERED: NS 1,000 ML IV ONE (14:15)
[2020-03-16] MEDS ORDERED: ACETAMINOPHEN 500 MG TAB PO ONE (14:15)
[2020-03-16 14:40] LABS: BASO # 0.1 10^3/uL (0.0-0.2); BASO % 0.3 % (0.0-1.0); EOS # 0.1 10^3/uL (0.0-0.5); EOS % 0.5 % (0.0-3.0); HEMATOCRIT 39.9 % (36.0-47.0); HEMOGLOBIN 13.4 g/dl (12.0-15.5); LYMPH # 3.8 10^3/uL (1.5-5.0); LYMPH % 22.1 % (24.0-44.0); MEAN CORPUSCULAR HEMOGLOBIN 29.6 pg (27.0-33.0); MEAN CORPUSCULAR HGB CONC 33.6 g/dl (32.0-36.5); MEAN CORPUSCULAR VOLUME 88.1 fl (80.0-96.0); MONO # 0.8 10^3/uL (0.0-0.8); MONO % 4.5 % (0.0-5.0); NEUTROPHILS # 12.4 10^3/uL (1.5-8.5); NEUTROPHILS % 72.1 % (36.0-66.0); PLATELET COUNT, AUTOMATED 267 10^3/uL (150-450); RED BLOOD COUNT 4.53 10^6/uL (4.00-5.40); WHITE BLOOD COUNT 17.2 10^3/uL (4.0-10.0)
[2020-03-16 15:10] LABS: ALBUMIN 4.4 GM/DL (3.2-5.2); ALT/SGPT 18 U/L (12-78); BILIRUBIN,DIRECT 0.1 MG/DL (0.0-0.2); BILIRUBIN,TOTAL 0.4 MG/DL (0.2-1.0); BLOOD UREA NITROGEN 14 MG/DL (7-18); CALCIUM LEVEL 9.7 MG/DL (8.5-10.1); CARBON DIOXIDE LEVEL 29 MEQ/L (21-32); CHLORIDE LEVEL 105 MEQ/L (98-107); CREATININE FOR GFR 0.75 MG/DL (0.55-1.30); GLOMERULAR FILTRATION RATE > 60.0 (>60); GLUCOSE, FASTING 79 MG/DL (70-100); LIPASE 47 U/L (73-393); POTASSIUM SERUM 3.9 MEQ/L (3.5-5.1); SODIUM LEVEL 141 MEQ/L (136-145); TOTAL PROTEIN 7.4 GM/DL (6.4-8.2)
[2020-03-16] MEDS ORDERED: cefTRIAXone SOD 1 GM in D5W MINI-BAG PLUS 50 ML IV ONE (15:15)
[2020-03-16] MEDS ORDERED: ISOVUE-370 76% 100ML VIAL As Ordered ONE (16:12)
[2020-03-16] MEDS ORDERED: KETOROLAC 30 MG/ML 1ML VIAL IV ONE (16:15)
--- NOTE | 2020-03-16 16:44 | REP ---
INDICATION: diffuse abd pain. COMPARISON: 11/25/2019 TECHNIQUE: Bolus 100 mL Isovue 370 scanning through the abdomen pelvis with coronal and sagittal reconstructions. FINDINGS: CT abdomen: Lung bases are clear. Heart is not enlarged. There is no hiatal hernia. The liver, spleen, gallbladder, pancreas, adrenal glands and kidneys were all unremarkable. No calcified gallstones or renal stones. No hydronephrosis or hydroureter. Small bowel loops are not dilated and but do show some wall thickening and enhancement without mesenteric edema or adjacent adenopathy. The colon shows less of the thickened enhancing wall appearance than on the previous study. There are still a few areas with focal wall thickening and enhancement in the left colon that could be some focal colitis but no stricture, mass or diverticulitis evident. The lung window review of all CT slices in the abdomen and pelvis shows no perforation or free air. The bone windows show lumbar, lower thoracic spine, their posterior elements and visualized ribs to be intact CT pelvis: Sacrum, pelvis and hips were all grossly unremarkable. Small bowel loops in the deep pelvis do show some slight thickening and enhancement of wall. Again though, no mesenteric edema or fluid and no ascites in the deep pelvis. Bladder shows wall thickening that may be related to underfilling or mild chronic cystitis. No mass or stone. Uterus absent the vaginal cuff intact. No pelvic mass. There is no ventral or inguinal hernia nor pathologic sized inguinal adenopathy IMPRESSION: 1. Some mild the wall thickening and enhancement of some of the small bowel loops that is a nonspecific finding but may reflect some gastroenteritis or inflammatory bowel changes. 2. There is certainly less involvement of the left colon with some wall thickening and enhancement seen suggesting colitis in November. Only a couple of focal areas are seen now in the left colon. No diverticulitis, abscess, stricture or mass visible 3. Solid organs in the upper abdomen were unremarkable. Gallbladder is without calcified stone and there is no renal stone, hydronephrosis hydroureter or bladder calculus. Mild bladder wall thickening may reflect chronic cystitis or underfilling. 4. There is no ascites, free air, acute bony abnormality or other significant finding. <Electronically signed by Demetrius Recinos > 03/16/20 1640
[2020-03-16] MEDS ORDERED: CIPR-249 PO (17:23)
[2020-03-16 18:00] VITALS: BP 115/69
== END 2020-03-16 18:01 | disposition home or self-care (01) ==
LOC: M ED 12:16
DX: N10 Acute pyelonephritis (principal); F17.200 Nicotine dependence, unspecified, uncomplicated; F12.10 Cannabis abuse, uncomplicated; C53.9 Malignant neoplasm of cervix uteri, unspecified; Z79.51 Long term (current) use of inhaled steroids; Z79.899 Other long term (current) drug therapy; Z91.030 Bee allergy status
CPT/HCPCS: 74177; 80048; 80076; 81001; 83605; 83690; 85025; 87040; 87186; 96361; 96374; 96375; 99284; J0696; J1885; Q9967

== ENCOUNTER → 2020-05-03 | Outpatient (CLI) | payer OTHER, MEDICAID ==
[~2020-05-03] MED LIST changes: +CIPR-249 PO; +RISP-7 PO; -RISP0.5T3 PO
--- NOTE | 2020-05-07 23:22 | ECWPNPC ---
PATIENT NAME: RODNEY PATTERSON : 1985 GENDER: FEMALE VISIT DATE: 05/03/2020 DISCHARGE DATE: 05/03/20 1529 VISIT LOCKED DATE TIME: PHYSICIAN: JUVENTINO MEDINA PHYSICIAN PAGER NO: INACTIVE RESOURCE: JUVENTINO MEDINA REASON FOR APPOINTMENT 1. NECK HISTORY OF PRESENT ILLNESS GENERAL: HERE FOR POST PROCEDURE FOLLOW-UP. HAD CERVICAL EPIDURAL STEROID INJECTION ON 03/14/2020. REPORTING NO IMPROVEMENT POST PROCEDURE. REPORTS SEVERE ANXIETY DURING THE PROCEDURE. PATIENT IS QUITE UNCOMFORTABLE TODAY. 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 SHE HAD TO QUIT THIS JOB. HAS BEEN VERY STRESSED OUT FINANCIALLY. REPORTS GOOD SUPPORT SYSTEM AT HOME. REVIEWED MRI OF THE CERVICAL SPINE AND DISCUSSED TREATMENT PLAN. PATIENT SUFFERS FROM GENERALIZED PAIN. DISCUSSED POSSIBILITY OF REFERRAL TO RHEUMATOLOGY IN THE FUTURE. DISCUSSED USE OF TORADOL FOR 5 DAYS PATIENT STATES SHE IS FINDING IT VERY DIFFICULT TO MOVE HER NECK. HAS MULTIPLE MEDICATION INTOLERANCES. HAS BEEN UNABLE TO TOLERATE LYRICA OR CYMBALTA. UNABLE TO TOLERATE GABAPENTIN. -. FALL RISK SCREENING: SCREENING :ONE FALL WITHOUT INJURY IN THE PAST YEAR FELL A COUPLE OF WEEKS AGO-JUST LOST HER BALANCE. JUST HAD A FLARE UP OF PAIN. WAS NOT EVALUATED AFTER PAIN SCREENING: PATIENT HAS A COMPLAINT OF ACUTE OR CHRONIC PAIN :YES LOCATION OF PAIN:NECK INTENSITY OF PAIN (SCALE OF 1 TO 10):6 AVERAGING 7-8 WHAT DOES YOUR PAIN FEEL LIKE:ACHING, BURNING, CONTINOUS, STABBING, TENDER, THROBBING, SORE DURATION:CONTINOUS, CONSTANT, AWAKENS FROM SLEEP PAIN IS INCREASED BY: ANY MOVEMENT PAIN IS DECREASED BY: HEAT WILL HELP ALITTLE IF CAUGHT EARLY ENOUGH NURSING NOTE: -. PAIN CENTER INTAKE QUESTIONS: DO YOU HAVE A HISTORY OF MRSA? :NO DO YOU TAKE A BLOOD THINNERS? :NO DO YOU HAVE ANY BLEEDING DISORDERS? :NO ANY NEW NUMBNESS OR WEAKNESS IN YOUR LEGS OR ARMS? :NO THE NUMBNESS ISN'T WORSE BUT SEEMS TO BE HAPPENING MORE OFTEN ANY PACEMAKER,DEFIBRILLATOR, OR DORSAL COLUMN STIMULATOR? :NO DO YOU HAVE ANY RASHES OR OPEN SORES? :NO ARE YOU ALLERGIC TO IV DYE? :NO ARE YOU DIABETIC? :NO ANY NEW PROBLEMS WITH YOUR MEDICATIONS? :NO HAVE YOU RECEIVED A VACCINE IN THE PAST 30 DAYS? :NO DO YOU PLAN TO RECEIVE A VACCINE IN THE NEXT 21 DAYS? :NO DO YOU NEED ANY PRESCRIPTION? :NO DO YOU TAKE ANY IMMUNOSUPPRESSIVE MEDICATIONS? :NO IS THERE A CHANCE YOU COULD BE ? :NO ARE YOU BREAST FEEDING? :NO CURRENT MEDICATIONS TAKING MOTRIN IB 200 MG TABLET 1-2 TABLETS WITH FOOD OR MILK NEEDED ORALLY THREE TIMES A DAY TAKING LATANOPROST 0.005 % SOLUTION 1 DROP INTO AFFECTED EYE IN THE EVENING OPHTHALMIC BEFORE BEDTIME NOT-TAKING FLEXERIL 10 MG TABLET 1 TABLET 1 TO 2 HOURS BEFORE BEDTIME ORALLY ONCE A DAY NOT-TAKING CYMBALTA 30 MG CAPSULE DELAYED RELEASE PARTICLES 1 CAPSULE ORALLY ONCE A DAY NOT-TAKING SALONPAS - PAD DIRECTED EXTERNALLY NOT-TAKING VALIUM 5 MG TABLET 1 TAB ORALLY 1/2 HR PRE MRI NOT-TAKING IBUPROFEN 600 MG TABLET 1 TABLET ORALLY EVERY 6-8 HOURS PRN NOT-TAKING LORATADINE-D 24HR 10-240 MG TABLET EXTENDED RELEASE 24 HOUR 1 TABLET ORALLY ONCE A DAY NOT-TAKING TRILEPTAL 300 MG TABLET ORALLY TWICE DAILY NOT-TAKING RISPERDAL 1 MG TABLET 1 TABLET ORALLY BID NOT-TAKING CYMBALTA 30 MG CAPSULE DELAYED RELEASE PARTICLES 1 CAPSULE ORALLY ONE DAILY NOT-TAKING ALBUTEROL SULFATE HFA 108 (90 BASE) MCG/ACT AEROSOL SOLUTION 2 PUFFS INHALATION ONCE A DAY NOT-TAKING PHYSICAL THERAPY EVALUATE AND TREAT LEFT KNEE PAIN DIRECTED N/A 3 TIMES PER WEEK NOT-TAKING FLEXERIL 5 MG TABLET 1 TABLET ORALLY TWICE DAILY PRN NOT-TAKING KNEE BRACE 1 N/A HINGED KNEE BRACE N/A FOR LEFT KNEE SPRAIN ICD 719.46 NOT-TAKING DEPAKOTE 250 MG ([facility]) TABLET DELAYED RELEASE 1 TAB(S) ORALLY QHS NOT-TAKING CLONAZEPAM 0.5 MG ([facility]) TABLET 1 TABLET ORALLY QHS NOT-TAKING TYLENOL WITH CODEINE #3 300-30 MG TABLET 1 TABLET NEEDED MDD # 4 ORALLY EVERY 6 HRS NOT-TAKING NABUMETONE 750 MG TABLET 1 TABLET ORALLY TWICE A DAY MEDICATION LIST REVIEWED AND RECONCILED WITH THE PATIENT PAST MEDICAL HISTORY BIPOLAR DISORDER ANXIETY DISORDER ALCOHOL/CANNABIS ABUSE CHRONIC LOW AND MID BACK PAIN FIBROMYALGIA PTSD DEGENERATIVE DISC DISEASE CHRONIC NECK/SHOULDER/ARM PAIN MENOPAUSE S/P HYSTERECTOMY GLAUCOMA CERVICAL AND OVARIAN CANCER MIGRAINES NECK PAIN ALLERGIES LATEX (FOR ALLERGY USE ONLY): RASH - ALLERGY BEES: HIVES/RASH - ALLERGY SURGICAL HISTORY APPENDECTOMY 1998 TONSILLECTOMY/ADENOIDECTOMY 2007 BILATERAL TUBAL LIGATION 09/2015 COMPLETE HYSTERECTOMY 2017 FAMILY HISTORY FATHER: ALIVE MOTHER: ALIVE 1 SISTER(S) - HEALTHY. 1 SON(S) , 1 DAUGHTER(S) - HEALTHY. MOTHER - IBSSISTER - ADHDSON- ADHD, ASTHMA. SOCIAL HISTORY GENERAL: TOBACCO USE ARE YOU A:CURRENT SMOKER ARE YOU INTERESTED IN QUITTING?NOT READY TO QUIT COUNSELED THE PATIENT ON SMOKING EFFECTS, EDUCATION [id number]/07/2020 HOW OFTEN DO YOU SMOKE CIGARETTES?EVERY DAY PATIENT COUNSELED ON THE DANGERS OF TOBACCO USE AND URGED TO QUIT:05/03/2020 LATEX QUESTIONNAIRE LATEX ALLERGY : HAVE YOU EVER DEVELOPED ANY TYPE OF REACTION AFTER HANDLING LATEX PRODUCTS SUCH RUBBER GLOVES, CONDOMS, DIAPHRAGMS, BALLOONS, SOCKS, OR UNDERWEAR?YES - PLEASE INDICATE :RUBBER GLOVES LATEX ALLERGY : HAVE YOU EVER DEVELOPED ANY TYPE OF REACTION DURING OR AFTER DENTAL APPOINTMENT, VAGINAL/RECTAL EXAMINATION, SURGICAL PROCEDURE, OR ANY OTHER EXPOSURE?YES RASH LATEX RISK : HAVE YOU EVER HAD ANY DIFFICULTY BREATHING OR HIVES AFTER EATING OR HANDLING ANY FRUITS, OR VEGETABLES; SUCH KIWI, BANANAS, STONE FRUITS, OR CHESTNUTSNO LATEX RISK : DO YOU HAVE A PREVIOUS PERSONAL HISTORY OF MORE THAN NINE SURGERIES, SPINA BIFIDA, OR REPEATED CATHERIZATIONS? NO LATEX RISK : ARE YOU FREQUENTLY EXPOSED TO LATEX PRODUCTS IN YOUR OCCUPATION?NO DATE ASKED : 05/03/2020 PATIENT HAS ACTIVE LATEX ALLERGY. ALCOHOL SCREENING DID YOU HAVE A DRINK CONTAINING ALCOHOL IN THE PAST YEAR?YES HOW OFTEN DID YOU HAVE A DRINK CONTAINING ALCOHOL IN THE PAST YEAR?MONTHLY OR LESS (1 POINT) HOW MANY DRINKS DID YOU HAVE ON A TYPICAL DAY WHEN YOU WERE DRINKING IN THE PAST YEAR?1 OR 2 (0 POINTS) HOW OFTEN DID YOU HAVE SIX OR MORE DRINKS ON ONE OCCASION IN THE PAST YEAR?NEVER (0 POINTS) POINTS1 INTERPRETATIONNEGATIVE RECREATIONAL DRUG USE DRUG USE?YES MARIJUANA CAFFEINE CAFFEINE USE?YES 1-2 DAILY [place] NO LATTER DAY BELIEFS THAT WOULD IMPACT HEALTH CARE, NO LATTER DAY PREFERENCE. LANGUAGE LANGUAGES SPOKEN:ANGUILLAN EDUCATION LEVEL OF EDUCATION:NOT FINISHED COLLEGE LEARNING BARRIERS / SPECIAL NEEDS BARRIERS TO LEARNING?NO HEARING IMPAIRED?NO VISION IMPAIRED?YES :CORRECTIVE LENSES COGNITIVELY IMPAIRED?NO READINESS TO LEARN?YES LEARNING PREFERENCES?NO LEARNING CAPABILITIES PRESENT?YES EMOTIONAL BARRIERS?YES PTSD, DEPRESSION, ANXIETY SPECIAL DEVICES?NO CUTTING MACHINE TENDER DECORATIVE NEEDED?NO OCCUPATION: DISABILITY. DIET: REGULAR DIET, BALANCED. EXERCISE: DAILY. MARITAL STATUS: SINGLE. OTHERS AT HOME: CHILDREN. PAIN CLINIC PFS, CLERGY, PUBLIC HEALTH REFERRALS HAS THE PATIENT BEEN EDUCATED REGARDING HIS/HER PLAN OF CARE?YES HAS THE PATIENT BEEN EDUCATED REGARDING PAIN, THE RISK FOR PAIN, THE IMPORTANCE OF EFFECTIVE PAIN MANAGEMENT, AND THE PAIN ASSESSMENT PROCESS?YES HOUSING: RENTS HOUSE. ADVANCE DIRECTIVE ADVANCE DIRECTIVE DISCUSSED WITH PATIENT:YES 05/03/2020 PATIENT HAS NO ADVANCED DIRECTIVES AND DECLINES INFORMATION ON HCP AT THIS TIME. HOSPITALIZATION/MAJOR DIAGNOSTIC PROCEDURE FOR SURGERIES ABOVE CHILDBIRTH 09/2016 CHILDBIRTH 08/2005 IMHU 08/2014 FOR[facility] 2009 OR 2010 REVIEW OF SYSTEMS CONSTITUTIONAL: ANY RECENT FEVER NO . CHILLS NO . WEIGHT CHANGE OF UNKNOWN REASONS NO . GASTROENTEROLOGY: NEW UNEXPLAINABLE CHANGES IN BOWEL CONTROL NO . CONSTIPATION NO . GENITOURINARY: ANY NEW CHANGE IN BLADDER CONTROL? NO . NEUROLOGY: NEW ONSET DIZZINESS OR NEUROLOGICAL CHANGES NOT MENTIONED NO . NEW NUMBNESS OR PAIN PATTERNS NOT MENTIONED AND PERTINENT TO TODAY'S VISIT NO . CARDIOLOGY: NEW CHEST PRESSURE NO . NEW CHEST PAIN NO . RESPIRATORY: UNEXPLAINABLE COUGH NO . NEW SHORTNESS OF BREATH NO . VITAL SIGNS WT 105.4 LBS, HT 60 IN, BMI 20.58 INDEX, BP 105/62 MM HG, HR 69 /MIN, RR 18 /MIN, TEMP 97.7 F, OXYGEN SAT % 97%, SAFE IN ENV? (Y/N) Y, NA INITIALS OH 14:35, REVIEWED BY: Chino HOLMAN RN. EXAMINATION GENERAL EXAMINATION: LUNGS: LUNG SOUNDS ARE CLEAR . HEART: HEART RATE REGULAR . MUSCULOSKELETAL:*, MUSCLE STRENGTH TESTING 5/5 BILATERAL UPPER EXTREMITIES. . CERVICAL:+ FOR PAIN WITH PALPATION OF CERVICAL SPINE. + FOR PAIN WITH PALPATION OF CERVICAL PARASPINALS. . DIAGNOSTIC TESTS REVIEWED CERVICAL MRI-2019. ASSESSMENTS OTHER CHRONIC PAIN - G89.29 (PRIMARY) MYALGIA, OTHER SITE - M79.18 TREATMENT OTHER CHRONIC PAIN START KETOROLAC TROMETHAMINE TABLET, 10 MG, 1 TABLET WITH FOOD OR MILK NEEDED, ORALLY, EVERY 6 HRS, 5 DAY(S), 20, REFILLS 0 PAIN PROCEDURE LOGDATE OF [id number]/10/2020PROCEDURE:CERVICAL EPIDURAL STEROID INJECTIONAMOUNT OF PRE SEDATENORCO 5/325 MGS PO, VALIUM 2 MGS PO NOTES: CONTINUE HOME STRETCHING EXERCISES. START TORADOL 10 MG TABLET 1 TABLET 4 TIMES A DAY X5 DAYS. INSTRUCTED TO AVOID ALL NONSTEROIDAL ANTI-INFLAMMATORY DRUGS [id number]. CONTINUE WITH USE OF HEAT. CONSIDER RHEUMATOLOGY REFERRAL IF NO IMPROVEMENT. PATIENT WOULD LIKE TO AVOID INTERVENTIONAL THERAPY. CLINICAL NOTES: PT DECLINED PRINTED INFORMATION ON KETOROLAC STATING SHE HAS TAKEN IT IN THE PAST AND WILL REVIEW IT FROM WHAT SHE GETS FROM THE PHARMACY. MEDICATION WAS REVIEWED WITH PT AND SHE KNOWS NOT TO TAKE OTHER NSAIDS WHILE TAKING THE KETOROLAC. SHE VERBALIZED UNDERSTANDING OF MEDICATION. PROCEDURE CODES [id number] ESTABILISHED PATIENT [facility] CHARGE DISPOSITION & COMMUNICATION FOLLOW UP 6 WEEKS (REASON: POST TORADOL X5 DAYS/NECK PAIN) ELECTRONICALLY SIGNED BY LAMIN STRATTON ON 05/07/2020 AT 03:58 PM EST DISCLAIMER : THIS IS A VISIT SUMMARY EXTRACTED FROM THE [employer] CHART. IT IS NOT A COPY OF THE [employer] PROGRESS NOTE. ARNOLDO
== END ==
LOC: M PAIN 14:15
PROVIDERS: ATTEND Nurse Practitioner Family
DX: G89.29 Other chronic pain (principal); M79.18 Myalgia, other site; M79.7 Fibromyalgia; G43.909 Migraine, unspecified, not intractable, without status migrainosus; F17.210 Nicotine dependence, cigarettes, uncomplicated; Z86.59 Personal history of other mental and behavioral disorders; Z91.030 Bee allergy status; Z91.040 Latex allergy status; Z79.899 Other long term (current) drug therapy

== ENCOUNTER → 2020-06-28 | Outpatient (CLI) | payer OTHER, MEDICAID ==
--- NOTE | 2020-07-02 23:14 | ECWPNPC ---
PATIENT NAME: RODNEY PATTERSON : 1985 GENDER: FEMALE VISIT DATE: 06/28/2020 DISCHARGE DATE: 06/28/20 1122 VISIT LOCKED DATE TIME: PHYSICIAN: JUVENTINO MEDINA PHYSICIAN PAGER NO: INACTIVE RESOURCE: JUVENTINO MEDINA REASON FOR APPOINTMENT 1. POST TORADOL X5 DAYS/NECK PAIN HISTORY OF PRESENT ILLNESS GENERAL: HERE FOR F/U OF CHRONIC GENERALIZED PAIN.CHIEF AREAS OF PAIN ARE NECK AND TAILBONE.DID NOT HAVE IMPROVEMENT WITH TPI OR CHERYL.UNABLE TO TOLERATE GABAPENTIN,CYMBALTA OR LYRICA. -. FALL RISK SCREENING: SCREENING :TWO OR MORE FALLS WITHOUT INJURY IN THE PAST YEAR PAIN SCREENING: PATIENT HAS A COMPLAINT OF ACUTE OR CHRONIC PAIN :YES LOCATION OF PAIN:NECK INTENSITY OF PAIN (SCALE OF 1 TO 10):8 WHAT DOES YOUR PAIN FEEL LIKE:BURNING, TENDER DURATION:CONTINOUS, CONSTANT PAIN IS INCREASED BY:ACTIVITIES PAIN IS DECREASED BY:OTHERS HEATING PAD NURSING NOTE: -. PAIN CENTER INTAKE QUESTIONS: DO YOU HAVE A HISTORY OF MRSA? :NO DO YOU TAKE A BLOOD THINNERS? :NO DO YOU HAVE ANY BLEEDING DISORDERS? :NO ANY NEW NUMBNESS OR WEAKNESS IN YOUR LEGS OR ARMS? :NO THE NUMBNESS ISN'T WORSE BUT SEEMS TO BE HAPPENING MORE OFTEN RIGHT SIDE OF BODY ANY PACEMAKER,DEFIBRILLATOR, OR DORSAL COLUMN STIMULATOR? :NO DO YOU HAVE ANY RASHES OR OPEN SORES? :NO ARE YOU ALLERGIC TO IV DYE? :NO ARE YOU DIABETIC? :NO ANY NEW PROBLEMS WITH YOUR MEDICATIONS? :NO HAVE YOU RECEIVED A VACCINE IN THE PAST 30 DAYS? :NO DO YOU PLAN TO RECEIVE A VACCINE IN THE NEXT 21 DAYS? :NO DO YOU NEED ANY PRESCRIPTION? :NO DO YOU TAKE ANY IMMUNOSUPPRESSIVE MEDICATIONS? :NO IS THERE A CHANCE YOU COULD BE ? :NO ARE YOU BREAST FEEDING? :NO CURRENT MEDICATIONS TAKING LATANOPROST 0.005 % SOLUTION 1 DROP INTO AFFECTED EYE IN THE EVENING OPHTHALMIC BEFORE BEDTIME TAKING KETOROLAC TROMETHAMINE 10 MG TABLET 1 TABLET WITH FOOD OR MILK NEEDED ORALLY EVERY 6 HRS TAKING ALBUTEROL SULFATE HFA 108 (90 BASE) MCG/ACT AEROSOL SOLUTION 2 PUFFS INHALATION ONCE A DAY NOT-TAKING MOTRIN IB 200 MG TABLET 1-2 TABLETS WITH FOOD OR MILK NEEDED ORALLY THREE TIMES A DAY NOT-TAKING FLEXERIL 10 MG TABLET 1 TABLET 1 TO 2 HOURS BEFORE BEDTIME ORALLY ONCE A DAY NOT-TAKING CYMBALTA 30 MG CAPSULE DELAYED RELEASE PARTICLES 1 CAPSULE ORALLY ONCE A DAY NOT-TAKING SALONPAS - PAD DIRECTED EXTERNALLY NOT-TAKING VALIUM 5 MG TABLET 1 TAB ORALLY 1/2 HR PRE MRI NOT-TAKING IBUPROFEN 600 MG TABLET 1 TABLET ORALLY EVERY 6-8 HOURS PRN NOT-TAKING LORATADINE-D 24HR 10-240 MG TABLET EXTENDED RELEASE 24 HOUR 1 TABLET ORALLY ONCE A DAY NOT-TAKING TRILEPTAL 300 MG TABLET ORALLY TWICE DAILY NOT-TAKING RISPERDAL 1 MG TABLET 1 TABLET ORALLY BID NOT-TAKING CYMBALTA 30 MG CAPSULE DELAYED RELEASE PARTICLES 1 CAPSULE ORALLY ONE DAILY NOT-TAKING PHYSICAL THERAPY EVALUATE AND TREAT LEFT KNEE PAIN DIRECTED N/A 3 TIMES PER WEEK NOT-TAKING FLEXERIL 5 MG TABLET 1 TABLET ORALLY TWICE DAILY PRN NOT-TAKING KNEE BRACE 1 N/A HINGED KNEE BRACE N/A FOR LEFT KNEE SPRAIN ICD 719.46 NOT-TAKING DEPAKOTE 250 MG ([employer] ) TABLET DELAYED RELEASE 1 TAB(S) ORALLY QHS NOT-TAKING CLONAZEPAM 0.5 MG ([employer] ) TABLET 1 TABLET ORALLY QHS NOT-TAKING TYLENOL WITH CODEINE #3 300-30 MG TABLET 1 TABLET NEEDED MDD # 4 ORALLY EVERY 6 HRS NOT-TAKING NABUMETONE 750 MG TABLET 1 TABLET ORALLY TWICE A DAY MEDICATION LIST REVIEWED AND RECONCILED WITH THE PATIENT PAST MEDICAL HISTORY BIPOLAR DISORDER ANXIETY DISORDER ALCOHOL/CANNABIS ABUSE CHRONIC LOW AND MID BACK PAIN FIBROMYALGIA PTSD DEGENERATIVE DISC DISEASE CHRONIC NECK/SHOULDER/ARM PAIN MENOPAUSE S/P HYSTERECTOMY GLAUCOMA CERVICAL AND OVARIAN CANCER MIGRAINES NECK PAIN ALLERGIES LATEX (FOR ALLERGY USE ONLY): RASH - ALLERGY BEES: HIVES/RASH - ALLERGY SOCIAL HISTORY GENERAL: TOBACCO USE ARE YOU A:CURRENT SMOKER ARE YOU INTERESTED IN QUITTING?NOT READY TO QUIT COUNSELED THE PATIENT ON SMOKING EFFECTS, EDUCATION IOPNOSTH72/24/2021 HOW OFTEN DO YOU SMOKE CIGARETTES?EVERY DAY PATIENT COUNSELED ON THE DANGERS OF TOBACCO USE AND URGED TO QUIT:05/03/2020 LATEX QUESTIONNAIRE LATEX ALLERGY : HAVE YOU EVER DEVELOPED ANY TYPE OF REACTION AFTER HANDLING LATEX PRODUCTS SUCH RUBBER GLOVES, CONDOMS, DIAPHRAGMS, BALLOONS, SOCKS, OR UNDERWEAR?YES - PLEASE INDICATE :RUBBER GLOVES LATEX ALLERGY : HAVE YOU EVER DEVELOPED ANY TYPE OF REACTION DURING OR AFTER DENTAL APPOINTMENT, VAGINAL/RECTAL EXAMINATION, SURGICAL PROCEDURE, OR ANY OTHER EXPOSURE?YES RASH LATEX RISK : HAVE YOU EVER HAD ANY DIFFICULTY BREATHING OR HIVES AFTER EATING OR HANDLING ANY FRUITS, OR VEGETABLES; SUCH KIWI, BANANAS, STONE FRUITS, OR CHESTNUTSNO LATEX RISK : DO YOU HAVE A PREVIOUS PERSONAL HISTORY OF MORE THAN NINE SURGERIES, SPINA BIFIDA, OR REPEATED CATHERIZATIONS? NO LATEX RISK : ARE YOU FREQUENTLY EXPOSED TO LATEX PRODUCTS IN YOUR OCCUPATION?NO DATE ASKED : 06/28/2020 PATIENT HAS ACTIVE LATEX ALLERGY. ALCOHOL USE: YES. ALCOHOL SCREENING DID YOU HAVE A DRINK CONTAINING ALCOHOL IN THE PAST YEAR?YES HOW OFTEN DID YOU HAVE SIX OR MORE DRINKS ON ONE OCCASION IN THE PAST YEAR?NEVER (0 POINTS) HOW MANY DRINKS DID YOU HAVE ON A TYPICAL DAY WHEN YOU WERE DRINKING IN THE PAST YEAR?1 OR 2 (0 POINTS) HOW OFTEN DID YOU HAVE A DRINK CONTAINING ALCOHOL IN THE PAST YEAR?MONTHLY OR LESS (1 POINT) POINTS1 INTERPRETATIONNEGATIVE RECREATIONAL DRUG USE DRUG USE?YES MARIJUANA CAFFEINE CAFFEINE USE?YES 1-2 DAILY [place]OASTRIAN NO YAZDANISM BELIEFS THAT WOULD IMPACT HEALTH CARE, NO YAZDANISM PREFERENCE. LANGUAGE LANGUAGES SPOKEN:LAO EDUCATION LEVEL OF EDUCATION:NOT FINISHED COLLEGE LEARNING BARRIERS / SPECIAL NEEDS BARRIERS TO LEARNING?NO HEARING IMPAIRED?NO VISION IMPAIRED?YES :CORRECTIVE LENSES COGNITIVELY IMPAIRED?NO READINESS TO LEARN?YES LEARNING PREFERENCES?NO LEARNING CAPABILITIES PRESENT?YES EMOTIONAL BARRIERS?YES PTSD, DEPRESSION, ANXIETY SPECIAL DEVICES?NO GEOTECHNICIAL PROPERTIES TECHNICIAN NEEDED?NO OCCUPATION: DISABILITY. DIET: REGULAR DIET, BALANCED. EXERCISE: DAILY. MARITAL STATUS: SINGLE. OTHERS AT HOME: CHILDREN. - HAS THE PATIENT BEEN EDUCATED REGARDING HIS/HER PLAN OF CARE?YES HAS THE PATIENT BEEN EDUCATED REGARDING PAIN, THE RISK FOR PAIN, THE IMPORTANCE OF EFFECTIVE PAIN MANAGEMENT, AND THE PAIN ASSESSMENT PROCESS?YES HOUSING: R[facility] HOUSE. ADVANCE DIRECTIVE ADVANCE DIRECTIVE DISCUSSED WITH PATIENT:YES 05/03/2020 PATIENT HAS NO ADVANCED DIRECTIVES AND DECLINES INFORMATION ON HCP AT THIS TIME. REVIEW OF SYSTEMS CONSTITUTIONAL: ANY RECENT FEVER NO . CHILLS NO . WEIGHT CHANGE OF UNKNOWN REASONS NO . GASTROENTEROLOGY: NEW UNEXPLAINABLE CHANGES IN BOWEL CONTROL NO . CONSTIPATION NO . GENITOURINARY: ANY NEW CHANGE IN BLADDER CONTROL? NO . NEUROLOGY: NEW ONSET DIZZINESS OR NEUROLOGICAL CHANGES NOT MENTIONED NO . NEW NUMBNESS OR PAIN PATTERNS NOT MENTIONED AND PERTINENT TO TODAY'S VISIT NO . CARDIOLOGY: NEW CHEST PRESSURE NO . PATIENT DENIES NO . RESPIRATORY: UNEXPLAINABLE COUGH NO . NEW SHORTNESS OF BREATH NO . VITAL SIGNS WT 105 LBS, HT 60 IN, BMI 20.50 INDEX, BP 105/58 MM HG, HR 66 /MIN, RR 16 /MIN, TEMP 97.9 F, OXYGEN SAT % 98%, SAFE IN ENV? (Y/N) YES, NA INITIALS SC 10:48T.ANTONIO LANGE. EXAMINATION GENERAL EXAMINATION: GENERALAWAKE,ALERT ,PLEASANT . PSYCHAFFECT NORMAL . LUNGS:LUNG SIFUENTES ARE CLEAR TO AUSCULTATION BILATERALLY. GOOD MOVEMENT OF AIR . HEART:S1, S2 IN A REGULAR RATE AND RHYTHM. NO SIGNIFICANT MURMURS, RUBS OR GALLOPS NOTED . ASSESSMENTS OTHER CHRONIC PAIN - G89.29 (PRIMARY) MYALGIA, OTHER SITE - M79.18 TREATMENT OTHER CHRONIC PAIN START MELOXICAM TABLET, 15 MG, 1 TABLET, ORALLY, ONCE A DAY, 30 DAY(S), 30, REFILLS 2 NOTES: PRINTED INFORMATION ON NEW MEDICATION FOR PATIENT TripANTONIO LANGE . REFERRAL TO:[facility] REASON:GENERALIZED JOINT PAIN PROCEDURE CODES FA211 ESTABILISHED PATIENT [facility] FACILITY CHARGE DISPOSITION & COMMUNICATION FOLLOW UP 10 WEEKS (REASON: GENERALIZED JOINT PAIN/RHEUMATOLGY REFERRAL/NEW MED MOBIC) ELECTRONICALLY SIGNED BY LAMIN STRATTON ON 07/02/2020 AT 03:40 PM EST DISCLAIMER : THIS IS A VISIT SUMMARY EXTRACTED FROM THE [employer] CHART. IT IS NOT A COPY OF THE [employer] PROGRESS NOTE. ARNOLDO
== END ==
LOC: M PAIN 10:00
PROVIDERS: ATTEND Nurse Practitioner Family
DX: G89.29 Other chronic pain (principal); M79.18 Myalgia, other site; M79.7 Fibromyalgia; G43.909 Migraine, unspecified, not intractable, without status migrainosus; F17.210 Nicotine dependence, cigarettes, uncomplicated; Z86.59 Personal history of other mental and behavioral disorders; Z91.030 Bee allergy status; Z91.040 Latex allergy status; Z79.899 Other long term (current) drug therapy

== ENCOUNTER → 2020-07-04 | Outpatient (REF) | payer OTHER, MEDICAID ==
[2020-07-04 17:54] LABS: BASO # 0.1 10^3/uL (0.0-0.2); BASO % 0.7 % (0.0-1.0); EOS # 0.5 10^3/uL (0.0-0.5); EOS % 5.7 % (0.0-3.0); HEMATOCRIT 40.1 % (36.0-47.0); HEMOGLOBIN 12.5 g/dl (12.0-15.5); LYMPH # 3.6 10^3/uL (1.5-5.0); LYMPH % 41.6 % (24.0-44.0); MEAN CORPUSCULAR HEMOGLOBIN 28.3 pg (27.0-33.0); MEAN CORPUSCULAR HGB CONC 31.2 g/dl (32.0-36.5); MEAN CORPUSCULAR VOLUME 90.7 fl (80.0-96.0); MONO # 0.5 10^3/uL (0.0-0.8); MONO % 5.3 % (2.0-8.0); NEUTROPHILS # 4.1 10^3/uL (1.5-8.5); NEUTROPHILS % 46.6 % (36.0-66.0); PLATELET COUNT, AUTOMATED 247 10^3/uL (150-450); RED BLOOD COUNT 4.42 10^6/uL (4.00-5.40); WHITE BLOOD COUNT 8.8 10^3/uL (4.0-10.0)
[2020-07-04 17:56] LABS: ALT/SGPT 32 U/L (12-78); BILIRUBIN,TOTAL 0.4 MG/DL (0.2-1.0); BLOOD UREA NITROGEN 14 MG/DL (7-18); CALCIUM LEVEL 9.5 MG/DL (8.5-10.1); CARBON DIOXIDE LEVEL 31 MEQ/L (21-32); CHLORIDE LEVEL 108 MEQ/L (98-107); CHOLESTEROL LEVEL 183 MG/DL (<200); CHOLESTEROL RISK RATIO 3.734 (<5); CREATININE FOR GFR 0.78 MG/DL (0.55-1.30); FREE T4 0.91 NG/DL (0.76-1.46); GLOMERULAR FILTRATION RATE > 60.0 (>60); GLUCOSE, FASTING 80 MG/DL (70-100); HDL CHOLESTEROL 49 MG/DL (>40); LDL CHOLESTEROL 117 MG/DL (<100); NON-HDL-C 134 MG/DL; POTASSIUM SERUM 4.7 MEQ/L (3.5-5.1); SODIUM LEVEL 141 MEQ/L (136-145); THYROID STIMULATING HORMONE 0.562 uIU/ML (0.358-3.740); TOTAL PROTEIN 7.2 GM/DL (6.4-8.2); TRIGLYCERIDES LEVEL 86 MG/DL (<150)
[2020-07-04 17:57] LABS: TOTAL 25(OH) VITAMIN D 27.5 NG/ML (30.0-100.0)
[2020-07-04 18:37] LABS: HEPATITIS C VIRUS ABY INDEX < 0.0 INDEX (<0.8); HIV 1&2 SCREEN CENTAUR NEGATIVE (NEGATIVE)
== END ==
LOC: M LAB REF 16:33
PROVIDERS: ATTEND Physician Assistant
DX: Z11.4 Encounter for screening for human immunodeficiency virus [HIV] (principal); Z11.59 Encounter for screening for other viral diseases; J32.9 Chronic sinusitis, unspecified; E78.5 Hyperlipidemia, unspecified; E55.9 Vitamin D deficiency, unspecified; E03.9 Hypothyroidism, unspecified

== ENCOUNTER 2020-09-20 22:03 | Emergency (ER) | payer MEDICAID, OTHER ==
[~2020-09-20] VITALS: Ht 152.4 cm; Wt 47.0 kg
[2020-09-21] MEDS ORDERED: LIDOCAINE 4% CREAM 5GM (LMX4) TOP ONE (00:50)
[2020-09-21] MEDS ORDERED: ACETAMINOPHEN 500 MG TAB PO ONE (00:50)
[2020-09-21] MEDS ORDERED: CLON0.5T17 PO (01:11)
[2020-09-21] MEDS ORDERED: MELO15TA28 PO (01:11)
[2020-09-21] MEDS ORDERED: GABAPENTIN 300 MG CAP PO ONE (01:15)
--- NOTE | 2020-09-21 01:51 | REPVR ---
PROCEDURE INFORMATION: Exam: XR Right Wrist Exam date and time: 09/21/2020 1:08 AM Age: 35 years old Clinical indication: Other: Pain; Additional info: Pain, no markus TECHNIQUE: Imaging protocol: XR Right wrist. Views: 1 or 2 views. COMPARISON: No relevant prior studies available. FINDINGS: Bones/joints: No radiographic evidence of acute fracture or dislocation. Alignment anatomic. Joint spaces preserved. Soft tissues: Grossly unremarkable. IMPRESSION: No acute radiographic findings. Electronically signed by: Montez Corbin On 09/21/2020 01:51:26 AM
--- NOTE | 2020-09-21 01:51 | REPVR ---
PROCEDURE INFORMATION: Exam: XR Right Hand Exam date and time: 09/21/2020 1:08 AM Age: 35 years old Clinical indication: Other: Pain; Additional info: Pain, no markus TECHNIQUE: Imaging protocol: XR Right hand. Views: 1 or 2 views. COMPARISON: No relevant prior studies available. FINDINGS: Bones/joints: No radiographic evidence of acute fracture or dislocation. Alignment anatomic. Joint spaces preserved. Soft tissues: Grossly unremarkable. IMPRESSION: No acute radiographic findings. Electronically signed by: Montez Corbin On 09/21/2020 01:51:07 AM
[2020-09-21] MEDS ORDERED: ANEC4CRE3 TOP (02:01)
[2020-09-21] MEDS ORDERED: VOLT1GEL15 TOP (02:01)
[2020-09-21 02:25] VITALS: BP 118/73
== END 2020-09-21 02:30 | disposition home or self-care (01) ==
LOC: M ED 22:03
DX: M79.641 Pain in right hand (principal); M25.531 Pain in right wrist; Z85.41 Personal history of malignant neoplasm of cervix uteri; Z91.030 Bee allergy status; Z91.040 Latex allergy status; Z79.899 Other long term (current) drug therapy

== ENCOUNTER → 2020-10-10 | Outpatient (CLI) | payer OTHER, MEDICAID ==
[~2020-10-10] MED LIST changes: +ANEC4CRE3 TOP; +CLON0.5T17 PO; +MELO15TA28 PO; +VOLT1GEL15 TOP
--- NOTE | 2020-10-13 01:51 | ECWPNPC ---
PATIENT NAME: RODNEY PATTERSON : 1985 GENDER: FEMALE VISIT DATE: 10/10/2020 DISCHARGE DATE: 10/10/20 1055 VISIT LOCKED DATE TIME: PHYSICIAN: JUVENTINO MEDINA RESOURCE: JUVENTINO MEDINA REASON FOR APPOINTMENT 1. GENERALIZED JOINT PAIN/RHEUMATOLGY REFERRAL/NEW MED MOBIC HISTORY OF PRESENT ILLNESS DEPRESSION SCREENING: PHQ-2 (2015 EDITION) LITTLE INTEREST OR PLEASURE IN DOING THINGS?NOT AT ALL FEELING DOWN, DEPRESSED, OR HOPELESS?NOT AT ALL TOTAL SCORE0 GENERAL: HERE FOR FOLLOW-UP OF CHRONIC GENERALIZED JOINT PAIN. STARTED ON MELOXICAM AT HER LAST VISIT. STATES SHE FEELS THIS IS HELPFUL. STATES NICE WEATHER HAS BEEN HELPING WELL. SHE HAS BEEN MORE ACTIVE. -. FALL RISK SCREENING: SCREENING : NO FALLS REPORTED IN THE LAST YEAR. PAIN SCREENING: PATIENT HAS A COMPLAINT OF ACUTE OR CHRONIC PAIN :YES LOCATION OF PAIN:NECK TAILBONE INTENSITY OF PAIN (SCALE OF 1 TO 10):4 WHAT DOES YOUR PAIN FEEL LIKE:ACHING, CONTINOUS DURATION:CONTINOUS, CONSTANT, ALL DAY PAIN IS INCREASED BY:OTHERS NOTHING RIGHT NOW PAIN IS DECREASED BY:OTHERS WHEATHER NURSING NOTE: -. PAIN CENTER INTAKE QUESTIONS: DO YOU HAVE A HISTORY OF MRSA? :NO DO YOU TAKE A BLOOD THINNERS? :NO DO YOU HAVE ANY BLEEDING DISORDERS? :NO ANY NEW NUMBNESS OR WEAKNESS IN YOUR LEGS OR ARMS? :NO THE NUMBNESS ISN'T WORSE BUT SEEMS TO BE HAPPENING MORE OFTEN RIGHT SIDE OF BODY ANY PACEMAKER,DEFIBRILLATOR, OR DORSAL COLUMN STIMULATOR? :NO DO YOU HAVE ANY RASHES OR OPEN SORES? :NO ARE YOU ALLERGIC TO IV DYE? :NO ARE YOU DIABETIC? :NO ANY NEW PROBLEMS WITH YOUR MEDICATIONS? :NO HAVE YOU RECEIVED A VACCINE IN THE PAST 30 DAYS? :NO DO YOU PLAN TO RECEIVE A VACCINE IN THE NEXT 21 DAYS? :NO DO YOU NEED ANY PRESCRIPTION? :NO DO YOU TAKE ANY IMMUNOSUPPRESSIVE MEDICATIONS? :NO IS THERE A CHANCE YOU COULD BE ? :NO ARE YOU BREAST FEEDING? :NO CURRENT MEDICATIONS TAKING LATANOPROST 0.005 % SOLUTION 1 DROP INTO AFFECTED EYE IN THE EVENING OPHTHALMIC BEFORE BEDTIME TAKING ALBUTEROL SULFATE HFA 108 (90 BASE) MCG/ACT AEROSOL SOLUTION 2 PUFFS INHALATION ONCE A DAY TAKING MELOXICAM 15 MG TABLET 1 TABLET ORALLY ONCE A DAY TAKING DICYCLOMINE HCL 10 MG CAPSULE 1 CAP ORALLY DAILY TAKING CLIMARA 0.1 MG/24HR PATCH WEEKLY 1 PATCH TO SKIN TRANSDERMAL WEEKLY TAKING KLONOPIN 0.5 MG TABLET 1 TABLET AT BEDTIME ORALLY ONCE A DAY MEDICATION LIST REVIEWED AND RECONCILED WITH THE PATIENT PAST MEDICAL HISTORY BIPOLAR DISORDER ANXIETY DISORDER ALCOHOL/CANNABIS ABUSE CHRONIC LOW AND MID BACK PAIN FIBROMYALGIA PTSD DEGENERATIVE DISC DISEASE CHRONIC NECK/SHOULDER/ARM PAIN MENOPAUSE S/P HYSTERECTOMY GLAUCOMA CERVICAL AND OVARIAN CANCER MIGRAINES NECK PAIN ALLERGIES LATEX (FOR ALLERGY USE ONLY): RASH - ALLERGY BEES: HIVES/RASH - ALLERGY SURGICAL HISTORY APPENDECTOMY 1998 TONSILLECTOMY/ADENOIDECTOMY 2007 BILATERAL TUBAL LIGATION 09/2015 COMPLETE HYSTERECTOMY 2017 FAMILY HISTORY FATHER: ALIVE MOTHER: ALIVE 1 SISTER(S) - HEALTHY. 1 SON(S) , 1 DAUGHTER(S) - HEALTHY. MOTHER - IBSSISTER - ADHDSON- ADHD, ASTHMA. SOCIAL HISTORY GENERAL: TOBACCO USE ARE YOU A:CURRENT SMOKER ONE PACK PER DAY ARE YOU INTERESTED IN QUITTING?READY TO QUIT COUNSELED THE PATIENT ON TOBACCO USE, CESSATION [id number]/08/2021 LATEX QUESTIONNAIRE LATEX ALLERGY : HAVE YOU EVER DEVELOPED ANY TYPE OF REACTION AFTER HANDLING LATEX PRODUCTS SUCH RUBBER GLOVES, CONDOMS, DIAPHRAGMS, BALLOONS, SOCKS, OR UNDERWEAR?YES - PLEASE INDICATE :RUBBER GLOVES LATEX ALLERGY : HAVE YOU EVER DEVELOPED ANY TYPE OF REACTION DURING OR AFTER DENTAL APPOINTMENT, VAGINAL/RECTAL EXAMINATION, SURGICAL PROCEDURE, OR ANY OTHER EXPOSURE?YES RASH LATEX RISK : HAVE YOU EVER HAD ANY DIFFICULTY BREATHING OR HIVES AFTER EATING OR HANDLING ANY FRUITS, OR VEGETABLES; SUCH KIWI, BANANAS, STONE FRUITS, OR CHESTNUTSNO LATEX RISK : DO YOU HAVE A PREVIOUS PERSONAL HISTORY OF MORE THAN NINE SURGERIES, SPINA BIFIDA, OR REPEATED CATHERIZATIONS? NO LATEX RISK : ARE YOU FREQUENTLY EXPOSED TO LATEX PRODUCTS IN YOUR OCCUPATION?NO DATE ASKED : 10/10/2020 PATIENT HAS ACTIVE LATEX ALLERGY. ALCOHOL USE: YES. ALCOHOL SCREENING DID YOU HAVE A DRINK CONTAINING ALCOHOL IN THE PAST YEAR?YES HOW OFTEN DID YOU HAVE SIX OR MORE DRINKS ON ONE OCCASION IN THE PAST YEAR?NEVER (0 POINTS) HOW MANY DRINKS DID YOU HAVE ON A TYPICAL DAY WHEN YOU WERE DRINKING IN THE PAST YEAR?1 OR 2 (0 POINTS) HOW OFTEN DID YOU HAVE A DRINK CONTAINING ALCOHOL IN THE PAST YEAR?MONTHLY OR LESS (1 POINT) POINTS1 INTERPRETATIONNEGATIVE RECREATIONAL DRUG USE DRUG USE?YES MARIJUANA DAILY CAFFEINE CAFFEINE USE?YES 1-2 DAILY [facility] NO ISLAM BELIEFS THAT WOULD IMPACT HEALTH CARE, NO ISLAM PREFERENCE. LANGUAGE LANGUAGES SPOKEN:KYRGYZ EDUCATION LEVEL OF EDUCATION:NOT FINISHED COLLEGE LEARNING BARRIERS / SPECIAL NEEDS CHANGE FROM LAST VISIT?NO BARRIERS TO LEARNING?NO HEARING IMPAIRED?NO VISION IMPAIRED?YES :CORRECTIVE LENSES COGNITIVELY IMPAIRED?NO READINESS TO LEARN?YES LEARNING PREFERENCES?NO LEARNING CAPABILITIES PRESENT?YES EMOTIONAL BARRIERS?YES PTSD, DEPRESSION, ANXIETY SPECIAL DEVICES?NO ENGRAVER BLOCK NEEDED?NO OCCUPATION: DISABILITY. DIET: REGULAR DIET, BALANCED. EXERCISE: DAILY. MARITAL STATUS: SINGLE. OTHERS AT HOME: CHILDREN. - HAS THE PATIENT BEEN EDUCATED REGARDING HIS/HER PLAN OF CARE?YES HAS THE PATIENT BEEN EDUCATED REGARDING PAIN, THE RISK FOR PAIN, THE IMPORTANCE OF EFFECTIVE PAIN MANAGEMENT, AND THE PAIN ASSESSMENT PROCESS?YES HOUSING: RENTS HOUSE. ADVANCE DIRECTIVE ADVANCE DIRECTIVE DISCUSSED WITH PATIENT:YES 05/03/2020 PATIENT HAS NO ADVANCED DIRECTIVES AND DECLINES INFORMATION ON HCP AT THIS TIME. HOSPITALIZATION/MAJOR DIAGNOSTIC PROCEDURE FOR SURGERIES ABOVE CHILDBIRTH 09/2015 [facility] 08[facility]2014 [facility] 2009 OR 2010 REVIEW OF SYSTEMS CONSTITUTIONAL: ANY RECENT FEVER NO . CHILLS NO . WEIGHT CHANGE OF UNKNOWN REASONS NO . GASTROENTEROLOGY: NEW UNEXPLAINABLE CHANGES IN BOWEL CONTROL NO . CONSTIPATION NO . GENITOURINARY: ANY NEW CHANGE IN BLADDER CONTROL? NO . NEUROLOGY: NEW ONSET DIZZINESS OR NEUROLOGICAL CHANGES NOT MENTIONED NO . NEW NUMBNESS OR PAIN PATTERNS NOT MENTIONED AND PERTINENT TO TODAY'S VISIT NO . CARDIOLOGY: NEW CHEST PRESSURE NO . PATIENT DENIES NO . RESPIRATORY: UNEXPLAINABLE COUGH NO . NEW SHORTNESS OF BREATH NO . VITAL SIGNS WT 103.0 LBS, HT 60 IN, BMI 20.11 INDEX, BP 116/76 MM HG, HR 67 /MIN, RR 18 /MIN, TEMP 98.0 F, OXYGEN SAT % 98%, SAFE IN ENV? (Y/N) YES, NA INITIALS AW 1027T.ANTONIO LANGE. EXAMINATION GENERAL EXAMINATION: GENERALAWAKE,ALERT ,PLEASANT . PSYCHAFFECT NORMAL . LUNGS:LUNG SIFUENTES ARE CLEAR TO AUSCULTATION BILATERALLY. GOOD MOVEMENT OF AIR . HEART:S1, S2 IN A REGULAR RATE AND RHYTHM. NO SIGNIFICANT MURMURS, RUBS OR GALLOPS NOTED . ASSESSMENTS GENERALIZED JOINT PAIN - M25.50 (PRIMARY) MYALGIA - M79.10 TREATMENT GENERALIZED JOINT PAIN NOTES: CONTINUE HOME EXERCISE AND STRETCHING. CONTINUE WALKING ON A REGULAR BASIS. CONTINUE MELOXICAM. PROCEDURE CODES FA211 ESTABILISHED PATIENT [facility] CHARGE DISPOSITION & COMMUNICATION FOLLOW UP 3 MONTHS (REASON: GENERALIZED JOINT PAIN/MYALGIA) ELECTRONICALLY SIGNED BY LAMIN STRATTON ON 10/12/2020 AT 09:51 AM EDT DISCLAIMER : THIS IS A VISIT SUMMARY EXTRACTED FROM THE [employer] CHART. IT IS NOT A COPY OF THE [employer] PROGRESS NOTE. ARNOLDO
== END ==
LOC: M PAIN 10:15
PROVIDERS: ATTEND Nurse Practitioner Family
DX: M25.50 Pain in unspecified joint (principal); M79.10 Myalgia, unspecified site; G43.909 Migraine, unspecified, not intractable, without status migrainosus; F17.210 Nicotine dependence, cigarettes, uncomplicated; Z86.59 Personal history of other mental and behavioral disorders; Z91.030 Bee allergy status; Z91.040 Latex allergy status; Z79.899 Other long term (current) drug therapy

== ENCOUNTER 2021-01-22 17:09 | Emergency (ER) | payer MEDICAID, OTHER ==
[~2021-01-22] VITALS: Ht 152.4 cm; Wt 47.6 kg
--- NOTE | 2021-01-22 18:04 | REP ---
INDICATION: bruising. COMPARISON: No comparison study TECHNIQUE: Four views of the left wrist are provided. FINDINGS: Four views of the left wrist demonstrate normal bones and joints. No fracture or subluxation is seen. Soft tissues are unremarkable radiographically. IMPRESSION: No fracture noted. <Electronically signed by Jose Hernandez > 01/22/21 1800
[2021-01-22 20:14] VITALS: BP 112/56
== END 2021-01-22 20:15 | disposition home or self-care (01) ==
LOC: M ED 17:09
DX: S60.212A Contusion of left wrist, initial encounter (principal); S63.92XA Sprain of unspecified part of left wrist and hand, initial encounter; X50.0XXA Overexertion from strenuous movement or load, initial encounter; Y93.68 Activity, volleyball (beach) (court); Y92.318 Other athletic court as the place of occurrence of the external cause; Y99.9 Unspecified external cause status; Z85.41 Personal history of malignant neoplasm of cervix uteri; M54.5 Low back pain; F41.9 Anxiety disorder, unspecified; Z91.040 Latex allergy status; Z91.030 Bee allergy status; Z79.899 Other long term (current) drug therapy

== ENCOUNTER → 2021-03-15 | Outpatient (REF) | payer OTHER ==
[~2021-03-15] MED LIST changes: -IBUP200T45 PO; +IBUP200T46 PO
== END ==
LOC: M LAB REF 19:14
PROVIDERS: ATTEND Physician Assistant
DX: J00 Acute nasopharyngitis [common cold] (principal)

== ENCOUNTER 2021-11-10 06:14 | Emergency (ER) | payer OTHER ==
[~2021-11-10] VITALS: Ht 152.4 cm; Wt 47.9 kg
[2021-11-10] MEDS ORDERED: DICY10CA13 PO (06:33)
[2021-11-10] MEDS ORDERED: ESTR2TAB3 PO (06:33)
[2021-11-10] MEDS ORDERED: LORA-674 PO (06:33)
[2021-11-10] MEDS ORDERED: KETOROLAC 60MG 2ML VIAL IM ONE (08:20)
[2021-11-10] MEDS ORDERED: LIDOCAINE 5% (LIDODERM) PATCH TD ONE (08:20)
[2021-11-10] MEDS ORDERED: methocarbamoL 750 MG TAB PO ONE (08:20)
[2021-11-10] MEDS ORDERED: ASPE4PAD TOP (09:42)
[2021-11-10] MEDS ORDERED: METH-1165 PO (09:42)
[2021-11-10] MEDS ORDERED: NAPR-837 PO (09:42)
[2021-11-10 09:48] VITALS: BP 114/56
[2021-11-10] MEDS ORDERED: **NOTE PATIENT COMMENT** MISC XX ONE (21:00)
== END 2021-11-10 10:04 | disposition home or self-care (01) ==
LOC: M ED 06:14
DX: M25.512 Pain in left shoulder (principal); W01.0XXA Fall on same level from slipping, tripping and stumbling without subsequent striking against object, initial encounter; Y92.009 Unspecified place in unspecified non-institutional (private) residence as the place of occurrence of the external cause; Y93.68 Activity, volleyball (beach) (court); Z91.030 Bee allergy status; Z91.040 Latex allergy status; Y99.9 Unspecified external cause status
CPT/HCPCS: 72125; 73030; 96372; 99283; J1885

== ENCOUNTER 2021-12-26 11:18 | Emergency (ER) | payer OTHER ==
[~2021-12-26] VITALS: Ht 152.4 cm; Wt 47.7 kg
[~2021-12-26 11:18] MED LIST changes: +ASPE4PAD TOP; +ESTR2TAB3 PO; +LORA-674 PO; +METH-1165 PO
[2021-12-26] MEDS ORDERED: ACETAMINOPHEN TAB 650MG DOSE (2X325MG) PO ONE (12:05)
[2021-12-26] MEDS ORDERED: KETOROLAC 30 MG/ML 1ML VIAL IM ONE (13:45)
[2021-12-26 15:34] VITALS: BP 124/74
== END 2021-12-26 15:35 | disposition home or self-care (01) ==
LOC: M ED 11:18
DX: S80.911A Unspecified superficial injury of right knee, initial encounter (principal); W10.8XXA Fall (on) (from) other stairs and steps, initial encounter; F17.200 Nicotine dependence, unspecified, uncomplicated; M54.50 Low back pain, unspecified; F31.9 Bipolar disorder, unspecified; Y92.9 Unspecified place or not applicable; Y93.9 Activity, unspecified; Y99.9 Unspecified external cause status; Z91.030 Bee allergy status; Z91.040 Latex allergy status; Z79.51 Long term (current) use of inhaled steroids; Z79.83 Long term (current) use of bisphosphonates; Z79.818 Long term (current) use of other agents affecting estrogen receptors and estrogen levels; Z79.899 Other long term (current) drug therapy
CPT/HCPCS: 73564; 96372; 99284; J1885

== ENCOUNTER → 2022-01-22 | Outpatient (CLI) | payer OTHER | LOC: M PLAIMG 10:26 | PROVIDERS: ATTEND Orthopaedic Surgery Adult Reconstructive Orthopaedic Surgery | DX: M23.91 Unspecified internal derangement of right knee (principal) ==

== ENCOUNTER → 2022-02-08 | Outpatient (CLI) | payer OTHER | LOC: M PLAIMG 10:05 | PROVIDERS: ATTEND Orthopaedic Surgery | DX: M47.812 Spondylosis without myelopathy or radiculopathy, cervical region (principal) ==

== ENCOUNTER → 2022-04-19 | Outpatient (REF) | payer OTHER ==
[2022-04-19 17:58] LABS: BASO # 0.1 10^3/uL (0.0-0.2); BASO % 0.8 % (0.0-1.0); EOS # 0.3 10^3/uL (0.0-0.5); EOS % 3.1 % (0.0-3.0); HEMATOCRIT 36.7 % (36.0-47.0); HEMOGLOBIN 12.2 g/dl (12.0-15.5); LYMPH # 4.5 10^3/uL (1.5-5.0); LYMPH % 45.4 % (24.0-44.0); MEAN CORPUSCULAR HEMOGLOBIN 29.5 pg (27.0-33.0); MEAN CORPUSCULAR HGB CONC 33.2 g/dl (32.0-36.5); MEAN CORPUSCULAR VOLUME 88.9 fl (80.0-96.0); MONO # 0.5 10^3/uL (0.0-0.8); MONO % 5.4 % (2.0-8.0); NEUTROPHILS # 4.5 10^3/uL (1.5-8.5); NEUTROPHILS % 45.1 % (36.0-66.0); PLATELET COUNT, AUTOMATED 214 10^3/uL (150-450); RED BLOOD COUNT 4.13 10^6/uL (4.00-5.40); WHITE BLOOD COUNT 9.9 10^3/uL (4.0-10.0)
[2022-04-19 18:43] LABS: ALBUMIN 3.9 G/DL (3.2-5.2); ALKALINE PHOSPHATASE 79 U/L (46-116); ALT/SGPT 20 U/L (7.0-40); AST/SGOT 22 U/L (<34); BILIRUBIN,TOTAL 0.2 MG/DL (0.3-1.2); BLOOD UREA NITROGEN 24 MG/DL (9-23); CALCIUM LEVEL 9.3 MG/DL (8.5-10.1); CARBON DIOXIDE LEVEL 25 MMOL/L (20-31); CHLORIDE LEVEL 107 MMOL/L (98-107); CHOLESTEROL LEVEL 144 MG/DL (<200); CREATININE FOR GFR 0.75 MG/DL (0.55-1.30); GLOMERULAR FILTRATION RATE > 60.0 (>60); GLUCOSE, FASTING 71 MG/DL (60-100); HDL CHOLESTEROL 44.9 MG/DL (>40); LDL CHOLESTEROL 82.3 MG/DL (<100); NON-HDL-C 99 MG/DL; POTASSIUM SERUM 5.3 MMOL/L (3.5-5.1); SODIUM LEVEL 138 MMOL/L (136-145); TOTAL PROTEIN 7.1 G/DL (5.7-8.2); TRIGLYCERIDES LEVEL 84 MG/DL (<150)
[2022-04-19 18:44] LABS: RHEUMATOID FACTOR QUANT < 3.5 IU/ML (<14)
[2022-04-19 18:45] LABS: THYROID STIMULATING HORMONE 0.922 uIU/ML (0.55-4.78)
[2022-04-19 19:49] LABS: ERYTHROCYTE SEDIMENTATION RATE 8 mm/hr (0-20)
[2022-04-22 20:11] LABS: ANA (HEP2) Positive (.); CYCLIC CITRULLINATED PEPTIDE 3 units (0-19); SSA SJOGRENS A <0.2 AI (0.0-0.9); SSB SJOGRENS B <0.2 AI (0.0-0.9)
== END ==
LOC: M LAB REF 11:38
PROVIDERS: ATTEND Pediatrics
DX: M54.2 Cervicalgia (principal); E78.5 Hyperlipidemia, unspecified; E03.9 Hypothyroidism, unspecified

== ENCOUNTER 2022-07-02 03:55 | Emergency (ER) | payer OTHER ==
[~2022-07-02] VITALS: Ht 152.4 cm; Wt 49.3 kg
[2022-07-02 04:26] VITALS: BP 126/75
[2022-07-02] MEDS ORDERED: OLOP2.5D7 OP (04:58)
== END 2022-07-02 05:23 | disposition home or self-care (01) ==
LOC: M ED 03:55
DX: J06.9 Acute upper respiratory infection, unspecified (principal); H10.33 Unspecified acute conjunctivitis, bilateral; F17.200 Nicotine dependence, unspecified, uncomplicated; Z91.030 Bee allergy status; Z91.040 Latex allergy status; Z79.52 Long term (current) use of systemic steroids; Z79.2 Long term (current) use of antibiotics; Z79.899 Other long term (current) drug therapy

== ENCOUNTER → 2022-12-04 | Outpatient (CLI) | payer OTHER ==
[~2022-12-04] MED LIST changes: +DICY-61 PO; -DICY10CA13 PO; +OLOP2.5D7 OP
== END ==
LOC: M SOG 13:53
PROVIDERS: ATTEND Orthopaedic Surgery
DX: M25.561 Pain in right knee (principal)

== ENCOUNTER → 2023-03-14 | Outpatient (REF) | payer OTHER ==
[~2023-03-14] MED LIST changes: +LORA-1041 PO; -LORA-674 PO
[2023-03-14 11:52] LABS: AMORPHOUS SEDIMENT SMALL (NEGATIVE); APPEARANCE, URINE CLOUDY (CLEAR); BACTERIA, URINE AUTO NEGATIVE (NEGATIVE); BILIRUBIN, URINE AUTO NEGATIVE (NEGATIVE); BLOOD, URINE BLOOD NEGATIVE (NEGATIVE); COLOR, URINE YELLOW (YELLOW); GLUCOSE, URINE (UA) AUTO NEGATIVE (NEGATIVE); KETONE, URINE AUTO NEGATIVE (NEGATIVE); LEUKOCYTE ESTERASE, URINE AUTO NEGATIVE (NEGATIVE); NITRITE, URINE AUTO NEGATIVE (NEGATIVE); PROTEIN, URINE AUTO NEGATIVE (NEGATIVE); RBC, URINE AUTO 0 /HPF (0-3); SPECIFIC GRAVITY URINE AUTO 1.018 (1.002-1.035); SQUAMOUS EPITHELIAL CELL UR AU 2 /HPF (0-6); UROBILINOGEN, URINE AUTO 0.2 mg/dL (0.0-2.0); WBC, URINE AUTO 0 /HPF (0-3)
[2023-03-14 11:54] LABS: BASO # 0.1 10^3/uL (0.0-0.2); BASO % 1.1 % (0.0-1.0); EOS # 0.2 10^3/uL (0.0-0.5); EOS % 3.7 % (0.0-3.0); HEMATOCRIT 40.1 % (36.0-47.0); HEMOGLOBIN 13.1 g/dl (12.0-15.5); LYMPH # 3.1 10^3/uL (1.5-5.0); MEAN CORPUSCULAR HEMOGLOBIN 29.8 pg (27.0-33.0); MEAN CORPUSCULAR HGB CONC 32.7 g/dl (32.0-36.5); MEAN CORPUSCULAR VOLUME 91.3 fl (80.0-96.0); MONO # 0.3 10^3/uL (0.0-0.8); MONO % 5.4 % (2.0-8.0); NEUTROPHILS # 2.4 10^3/uL (1.5-8.5); NEUTROPHILS % 39.6 % (36.0-66.0); PLATELET COUNT, AUTOMATED 269 10^3/uL (150-450); RED BLOOD COUNT 4.39 10^6/uL (4.00-5.40); WHITE BLOOD COUNT 6.2 10^3/uL (4.0-10.0)
[2023-03-14 12:04] LABS: ERYTHROCYTE SEDIMENTATION RATE 15 mm/hr (0-20)
[2023-03-14 12:24] LABS: TOTAL PROTEIN,RANDOM URINE 22.6 MG/DL (0.0-14.0)
[2023-03-14 12:28] LABS: C REACTIVE PROTEIN QUANTITATIV < 0.40 MG/DL (<1.0)
[2023-03-14 12:29] LABS: CREATININE,RANDOM URINE 103.4 MG/DL
[2023-03-14 12:30] LABS: ALBUMIN 4.1 G/DL (3.2-5.2); ALKALINE PHOSPHATASE 79 U/L (46-116); ALT/SGPT 33 U/L (7.0-40); AST/SGOT 26 U/L (<34); BILIRUBIN,TOTAL 0.3 MG/DL (0.3-1.2); BLOOD UREA NITROGEN 18 MG/DL (9-23); CALCIUM LEVEL 9.6 MG/DL (8.5-10.1); CARBON DIOXIDE LEVEL 31 MMOL/L (20-31); CHLORIDE LEVEL 103 MMOL/L (98-107); CREATININE FOR GFR 0.72 MG/DL (0.55-1.30); GLOMERULAR FILTRATION RATE > 60.0 (>60); GLUCOSE, FASTING 86 MG/DL (60-100); POTASSIUM SERUM 4.7 MMOL/L (3.5-5.1); SODIUM LEVEL 140 MMOL/L (136-145); TOTAL PROTEIN 7.4 G/DL (5.7-8.2)
== END ==
LOC: M SFHCRHEU 10:24
PROVIDERS: ATTEND Internal Medicine Rheumatology
DX: R76.8 Other specified abnormal immunological findings in serum (principal); M35.3 Polymyalgia rheumatica; M35.00 Sjogren syndrome, unspecified; Z72.0 Tobacco use

== ENCOUNTER 2023-04-26 20:35 | Emergency (ER) | payer OTHER ==
[~2023-04-26] VITALS: Ht 152.4 cm; Wt 50.8 kg
[2023-04-26] MEDS ORDERED: AMOX875T (20:44)
[2023-04-26 21:39] LABS: RSV AMPLIFICATION NEGATIVE (NEGATIVE)
[2023-04-27] MEDS ORDERED: NS 1,000 ML IV ONE (00:55)
[2023-04-27] MEDS ORDERED: ACETAMINOPHEN 500 MG TAB PO ONE (01:55)
[2023-04-27] MEDS ORDERED: KETOROLAC 30 MG/ML 1ML VIAL IV ONE (02:00)
[2023-04-27 02:23] VITALS: TEMP 97.9; O2SAT 100
[2023-04-27 02:24] VITALS: BP 131/59
[2023-04-27] MEDS ORDERED: BROM118S38 PO (02:34)
[2023-04-27] MEDS ORDERED: PRED20TA PO (02:34)
== END 2023-04-27 02:42 | disposition home or self-care (01) ==
LOC: M ED 20:35
DX: J98.9 Respiratory disorder, unspecified (principal); R00.1 Bradycardia, unspecified; F31.9 Bipolar disorder, unspecified; F17.200 Nicotine dependence, unspecified, uncomplicated; Z91.030 Bee allergy status; Z91.040 Latex allergy status; Z79.52 Long term (current) use of systemic steroids; Z79.2 Long term (current) use of antibiotics; Z79.899 Other long term (current) drug therapy
CPT/HCPCS: 71046; 87486; 87581; 87631; 87633; 87798; 93005; 96361; 96374; 99284; J1885

== ENCOUNTER → 2023-06-13 | Outpatient (CLI) | payer OTHER ==
[~2023-06-13] MED LIST changes: +AMOX875T; +BROM118S38 PO; +PRED20TA PO
== END ==
LOC: M WUC 13:08
PROVIDERS: ATTEND Internal Medicine Rheumatology
DX: R76.8 Other specified abnormal immunological findings in serum (principal); M35.3 Polymyalgia rheumatica; M35.00 Sjogren syndrome, unspecified; Z72.0 Tobacco use

== ENCOUNTER 2023-07-13 10:08 | Emergency (ER) | payer OTHER ==
[~2023-07-13] VITALS: Ht 152.4 cm; Wt 52.1 kg
[~2023-07-13 10:08] MED LIST changes: -RISP-7 PO; +RISP0.5T82 PO
[2023-07-13] MEDS ORDERED: AZEL1SPR3 (10:17)
[2023-07-13] MEDS ORDERED: FLUTISP (10:17)
[2023-07-13] MEDS ORDERED: ESTR1GEL (10:17)
[2023-07-13] MEDS ORDERED: BUPR150T12 (10:17)
[2023-07-13] MEDS: ONDANSETRON 4MG ORAL DISINTEGRATING TAB PO ONE (10:57)
[2023-07-13] MEDS: NS 1,000 ML IV ONE (11:34)
[2023-07-13 11:38] LABS: BASO # 0.1 10^3/uL (0.0-0.2); BASO % 0.7 % (0.0-1.0); EOS # 0.4 10^3/uL (0.0-0.5); EOS % 4.7 % (0.0-3.0); HEMATOCRIT 41.3 % (36.0-47.0); HEMOGLOBIN 13.4 g/dl (12.0-15.5); LYMPH # 2.9 10^3/uL (1.5-5.0); MEAN CORPUSCULAR HEMOGLOBIN 29.4 pg (27.0-33.0); MEAN CORPUSCULAR HGB CONC 32.4 g/dl (32.0-36.5); MEAN CORPUSCULAR VOLUME 90.6 fl (80.0-96.0); MONO # 0.4 10^3/uL (0.0-0.8); MONO % 4.7 % (2.0-8.0); NEUTROPHILS # 3.9 10^3/uL (1.5-8.5); NEUTROPHILS % 51.6 % (36.0-66.0); PLATELET COUNT, AUTOMATED 292 10^3/uL (150-450); RED BLOOD COUNT 4.56 10^6/uL (4.00-5.40); WHITE BLOOD COUNT 7.6 10^3/uL (4.0-10.0)
[2023-07-13 12:02] LABS: ALKALINE PHOSPHATASE 85 U/L (46-116); ALT/SGPT 22 U/L (7.0-40); AST/SGOT 14 U/L (<34); BILIRUBIN,TOTAL 0.3 MG/DL (0.3-1.2); BLOOD UREA NITROGEN 19 MG/DL (9-23); CALCIUM LEVEL 9.5 MG/DL (8.5-10.1); CARBON DIOXIDE LEVEL 30 MMOL/L (20-31); CHLORIDE LEVEL 109 MMOL/L (98-107); CK-MB VALUE MASS 1.3 NG/ML (<3.6); CPK CREATINE PHOSPHOKINASE 96 U/L (34-145); CREATININE FOR GFR 0.78 MG/DL (0.55-1.30); GLOMERULAR FILTRATION RATE > 60.0 (>60); GLUCOSE, FASTING 69 MG/DL (60-100); MAGNESIUM LEVEL 1.7 MG/DL (1.8-2.4); MB/CK RELATIVE INDEX 1.35 (< OR =4); POTASSIUM SERUM 5.3 MMOL/L (3.5-5.1); SODIUM LEVEL 141 MMOL/L (136-145); TOTAL PROTEIN 6.9 G/DL (5.7-8.2)
[2023-07-13 12:05] LABS: THYROID STIMULATING HORMONE 0.314 uIU/ML (0.55-4.78)
[2023-07-13] MEDS: MAGNESIUM OXIDE 400MG TAB (MAG-OX) PO ONE (12:47)
[2023-07-13] MEDS: ACETAMINOPHEN 325 MG TAB PO ONE (13:29)
[2023-07-13 14:02] VITALS: BP 103/57; TEMP 98.4; O2SAT 97
== END 2023-07-13 14:16 | disposition home or self-care (01) ==
LOC: M ED 10:08
DX: R42 Dizziness and giddiness (principal); E83.42 Hypomagnesemia; R00.1 Bradycardia, unspecified; I49.40 Unspecified premature depolarization; C56.9 Malignant neoplasm of unspecified ovary; C53.9 Malignant neoplasm of cervix uteri, unspecified; F17.200 Nicotine dependence, unspecified, uncomplicated; Z91.030 Bee allergy status; Z91.040 Latex allergy status; Z79.899 Other long term (current) drug therapy; Z79.52 Long term (current) use of systemic steroids; Z79.51 Long term (current) use of inhaled steroids

== ENCOUNTER 2023-07-17 09:44 | Emergency (ER) | payer OTHER ==
[~2023-07-17] VITALS: Ht 154.9 cm; Wt 50.7 kg
[~2023-07-17 09:44] MED LIST changes: +AZEL1SPR3; +BUPR150T12 PO; +ESTR1GEL TOP; +FLUTISP EN
[2023-07-17] MEDS ORDERED: GNP250TA9 PO (09:55)
[2023-07-17 10:55] LABS: BASO # 0.1 10^3/uL (0.0-0.2); BASO % 0.6 % (0.0-1.0); EOS # 0.2 10^3/uL (0.0-0.5); EOS % 1.9 % (0.0-3.0); HEMATOCRIT 45.2 % (36.0-47.0); LYMPH # 3.7 10^3/uL (1.5-5.0); LYMPH % 34.2 % (24.0-44.0); MEAN CORPUSCULAR HEMOGLOBIN 29.7 pg (27.0-33.0); MEAN CORPUSCULAR HGB CONC 33.2 g/dl (32.0-36.5); MEAN CORPUSCULAR VOLUME 89.5 fl (80.0-96.0); MONO # 0.4 10^3/uL (0.0-0.8); MONO % 3.6 % (2.0-8.0); NEUTROPHILS # 6.5 10^3/uL (1.5-8.5); NEUTROPHILS % 59.5 % (36.0-66.0); PLATELET COUNT, AUTOMATED 319 10^3/uL (150-450); RED BLOOD COUNT 5.05 10^6/uL (4.00-5.40); WHITE BLOOD COUNT 10.9 10^3/uL (4.0-10.0)
[2023-07-17 11:27] LABS: BLOOD UREA NITROGEN 19 MG/DL (9-23); CALCIUM LEVEL 10.1 MG/DL (8.5-10.1); CARBON DIOXIDE LEVEL 30 MMOL/L (20-31); CHLORIDE LEVEL 106 MMOL/L (98-107); CREATININE FOR GFR 0.72 MG/DL (0.55-1.30); GLOMERULAR FILTRATION RATE > 60.0 (>60); GLUCOSE, FASTING 90 MG/DL (60-100); MAGNESIUM LEVEL 1.9 MG/DL (1.8-2.4); POTASSIUM SERUM 4.8 MMOL/L (3.5-5.1); SODIUM LEVEL 140 MMOL/L (136-145)
[2023-07-17] MEDS: NS 1,000 ML IV ONE (12:15)
[2023-07-17 12:24] LABS: FREE T4 1.02 NG/DL (0.89-1.76); THYROID STIMULATING HORMONE 0.453 uIU/ML (0.55-4.78)
[2023-07-17] MEDS ORDERED: AZEL1SPR3 NARES (12:26)
[2023-07-17] MEDS ORDERED: HOME MED LIST COMPLETE! XX SCH (12:30)
[2023-07-17] MEDS ORDERED: ONDA4TAB6 PO (13:32)
[2023-07-17 13:42] VITALS: BP 101/54; TEMP 97.9; O2SAT 99
== END 2023-07-17 13:50 | disposition home or self-care (01) ==
LOC: M ED 09:44
DX: R42 Dizziness and giddiness (principal); R19.7 Diarrhea, unspecified; R00.1 Bradycardia, unspecified; I49.49 Other premature depolarization; F31.9 Bipolar disorder, unspecified; F17.200 Nicotine dependence, unspecified, uncomplicated; Z91.030 Bee allergy status; Z91.040 Latex allergy status; Z79.83 Long term (current) use of bisphosphonates; Z79.82 Long term (current) use of aspirin; Z79.899 Other long term (current) drug therapy

== ENCOUNTER → 2023-07-18 | Outpatient (REF) | payer OTHER ==
[~2023-07-18] MED LIST changes: +AZEL1SPR3 NARES; +GNP250TA9 PO; +ONDA4TAB6 PO
== END ==
LOC: M LAB REF 17:07
PROVIDERS: ATTEND Physician Assistant
DX: R19.7 Diarrhea, unspecified (principal); A04.5 Campylobacter enteritis

== ENCOUNTER → 2023-08-04 | Outpatient (REF) | payer OTHER ==
[2023-08-04 17:45] LABS: CHOLESTEROL RISK RATIO 3.38 (<5); HDL CHOLESTEROL 54.4 MG/DL (>40); LDL CHOLESTEROL 111.4 MG/DL (<100); NON-HDL-C 129.6 MG/DL
[2023-08-04 17:46] LABS: FREE T4 0.9 NG/DL (0.89-1.76); THYROID STIMULATING HORMONE 0.321 uIU/ML (0.55-4.78)
[2023-08-04 17:48] LABS: FOLATE 12.4 NG/ML (>5.4)
== END ==
LOC: M LAB REF 16:23
PROVIDERS: ATTEND Nurse Practitioner Family
DX: E03.9 Hypothyroidism, unspecified (principal); E78.5 Hyperlipidemia, unspecified; R51.9 Headache, unspecified

== ENCOUNTER → 2023-09-15 | Outpatient (CLI) | payer OTHER | LOC: M RAD 12:33 | PROVIDERS: ATTEND Pediatrics | DX: R89.1 Abnormal level of hormones in specimens from other organs, systems and tissues (principal) ==

== ENCOUNTER → 2023-12-02 | Outpatient (CLI) | payer OTHER ==
[~2023-12-02] MED LIST changes: +ONDA-282 PO; -ONDA4TAB6 PO
== END ==
LOC: M CARPUL 14:38
PROVIDERS: ATTEND Nurse Practitioner Adult Health
DX: R06.02 Shortness of breath (principal)

== ENCOUNTER 2024-06-23 13:50 | Emergency (ER) | payer OTHER ==
[~2024-06-23] VITALS: Ht 152.4 cm; Wt 56.1 kg
[2024-06-23 21:32] VITALS: BP 121/69; TEMP 97.1; O2SAT 99
[2024-06-23] MEDS: ACETAMINOPHEN 500 MG TAB PO ONE (21:52)
== END 2024-06-23 21:54 | disposition home or self-care (01) ==
LOC: M ED 13:50
DX: S89.91XA Unspecified injury of right lower leg, initial encounter (principal); X50.1XXA Overexertion from prolonged static or awkward postures, initial encounter; Y92.009 Unspecified place in unspecified non-institutional (private) residence as the place of occurrence of the external cause; Y93.9 Activity, unspecified; Y99.9 Unspecified external cause status; F31.9 Bipolar disorder, unspecified; F17.200 Nicotine dependence, unspecified, uncomplicated; Z85.43 Personal history of malignant neoplasm of ovary; Z79.890 Hormone replacement therapy; Z79.899 Other long term (current) drug therapy; Z91.030 Bee allergy status; Z91.040 Latex allergy status

== ENCOUNTER → 2025-01-19 | Outpatient (REF) | payer OTHER ==
[~2025-01-19] MED LIST changes: +DIVA250T67 PO; -IBUP-1022; -IBUP-1022 PO; +IBUP600T42; +IBUP600T42 PO
[2025-01-19 18:44] LABS: BASO # 0.1 10^3/uL (0.0-0.2); BASO % 0.9 % (0.0-1.0); EOS # 0.5 10^3/uL (0.0-0.5); EOS % 5.6 % (0.0-3.0); LYMPH # 4.2 10^3/uL (1.5-5.0); LYMPH % 53.2 % (24.0-44.0); MONO # 0.3 10^3/uL (0.0-0.8); MONO % 3.8 % (2.0-8.0); NEUTROPHILS # 2.9 10^3/uL (1.5-8.5); NEUTROPHILS % 36.2 % (36.0-66.0); PLATELET COUNT, AUTOMATED 275 10^3/uL (150-450)
[2025-01-19 18:47] LABS: TOTAL 25(OH) VITAMIN D 41.6 NG/ML (20.0-100.0)
== END ==
LOC: M LAB REF 14:01
PROVIDERS: ATTEND Pediatrics
DX: E55.9 Vitamin D deficiency, unspecified (principal); E03.9 Hypothyroidism, unspecified

== ENCOUNTER → 2025-02-02 | Outpatient (CLI) | payer OTHER | LOC: M WHC 12:57 | PROVIDERS: ATTEND Specialist | DX: Z12.31 Encounter for screening mammogram for malignant neoplasm of breast (principal); Z80.41 Family history of malignant neoplasm of ovary; Z85.43 Personal history of malignant neoplasm of ovary; R92.333 Mammographic heterogeneous density, bilateral breasts; R92.8 Other abnormal and inconclusive findings on diagnostic imaging of breast ==